=== PATIENT | male | born 1955 | race Caucasian/White ===

== ENCOUNTER → 2017-06-18 10:34 | Outpatient (CLI) | payer OTHER, SELFPAY ==
[2017-06-18 12:28] LABS: Cholesterol 217 mg/dL (200); High Density Lipoprotein 66 mg/dL; PSA,Total - Annual Screen 0.94 ng/mL (0.00-4.00); Triglycerides 131 mg/dL; Very Low Density Lipoprotein 26 mg/dL (5-40)
== END ==
PROVIDERS: Family Provider Family Medicine; PCP Family Medicine; Visit Provider Family Medicine
DX: Z00.00 Encounter for general adult medical examination without abnormal findings (principal)
CPT/HCPCS: 36415; 80061; 84153; G0103

== ENCOUNTER 2017-07-09 06:34 | Day surgery (SDC) | payer OTHER, SELFPAY ==
[2017-07-09] VITALS (7 sets, daily range): BP systolic 119–126; BP diastolic 78–88; PULSE 67–80; RESP 14–16; TEMP 36.2–36.9; O2SAT 92–99; BMI 31.6
--- NOTE | 2017-07-09 07:25 | PCM.HP.STD ---
Problem List (1) Family history of colon cancer Status: Acute History of Present Illness Date of Admission: 07/09/17 The patient is a 61 year old M who has recently had successful laparoscopic inguinal herniorrhaphy. He has a family history of colon cancer. Fortunately he denies any bright red blood per rectum or melena. No abdominal pain. He presents for high-risk screening colonoscopy. Past Medical History Allergies No Known Allergies Allergy (Verified 07/06/17 08:59) Home Medications: Ambulatory Orders Medication Instructions Recorded Aspirin E.C. [Ecotrin] 81 mg PO DAILY@0800 03/18/17 Multivitamin [Daily Multiple 1 ea PO DAILY 03/18/17 Vitamin] [place]-3 Fatty Acids/Fish Oil [Fish 1 each PO DAILY 07/06/17 Oil 1,000 mg Capsule] Smoking Status: Never smoker Review of Systems Constitutional: Denies: Weight Change Eyes: Denies: Blurred vision, Vision Change HEENT: Denies: Ear Pain, Eye Pain Cardiovascular: Denies: Chest Pain, Claudication Respiratory: Denies: Cough, Shortness of Breath Gastrointestinal: Denies: Hematemesis, Hematochezia Genitourinary: Denies: Dysuria, Hematuria Musculoskeletal: Denies: Leg Pain Skin: Denies: Jaundice Neurological: Denies: Confusion Psychiatric: Denies: Depression Endocrine: Denies: Change in Body Habitus Hematologic/ Lymphatic: Denies: Easy Bleeding VTE Information - Inpt Only VTE Present on Admission: No Patient Problems: Active and Suspected Problems (Last Reviewed 04/01/17 @ 13:34 by Leandra Duarte) Family history of colon cancer (Acute) - Physical Exam General: Alert, Oriented x3, Cooperative HEENT: Atraumatic Oral: Moist Mucosa Neck: Supple Lungs: Clear to auscultation Cardiovascular: Regular rate Abdomen: Bowel Sounds Present, Soft, Non Tender Extremities: No clubbing Skin: No rashes Musculoskeletal: No Tenderness to Palpation of Joints or Extremities Lymphatic: No Cervical, Supraclavicular, or Inguinal Adenopathy Neurological: Cranial nerves II-XII grossly intact Psych/Mental Status: Normal Affect Vital Signs Temp Pulse Resp BP Pulse Ox 97.1 F L 80 16 125/83 H 99 07/09/17 06:50 07/09/17 06:50 07/09/17 06:50 07/09/17 06:50 07/09/17 06:50 Oxygen Delivery Method Room Air Weight: 220 lb 10.923 oz Body Mass Index (BMI) 31.6 Assessment/Plan Active and Suspected Problems (Last Reviewed 04/01/17 @ 13:34 by Leandra Duarte) Family history of colon cancer (Acute) Colonoscopy with possible biopsy or polypectomy is indicated is recommended. He has had an opportunity to ask and have questions answered. We will proceed at his discretion. Mario Otto M.D., F.A.C.S.
--- NOTE | 2017-07-09 07:50 | COLBX_PTH ---
PATIENT: CARLY JAY LOC: EN U#:[id number] AGE/SX: 61/M ROOM: RE07/09/[address]: Dr. Mario Otto MD : 1955 BED: DIS: 07/09/2017 SPEC #: [id number] RECD: 07/09/17 13:16 STATUS: MILVIA ELAINEAntonio #: [id number] MARSHALL: 07/09/17 07:[address]: Mario Otto DEPT: SURGICAL PATHOLOGY RECD BY: Steven Watts ENTERED: 07/09/17 14:10 SP TYPE: COLON BX OTHR DR: Dr. Jewels Hernandez MD Tissues: Sigmoid colon biopsy Procedures: Surgery Specimen Level IV HEADER OPERATION: Colonoscopy PRE-OP DIAGNOSIS: Family history of colon cancer TISSUE SUBMITTED: Proximal sigmoid polyp MICROSCOPIC DIAGNOSIS Proximal sigmoid polyp, biopsy: Tubular adenoma. SJ:khoi 07/12/17 MICROSCOPIC DESCRIPTION Slides are reviewed. GROSS DESCRIPTION Received in fixative is one container labeled with the patient's name and designated proximal sigmoid polyp. The specimen consists of one irregular fragment of light carmen soft tissue that measures 0.3 x 0.3 x 0.1 cm. The specimen is totally submitted in one cassette. / RANI:khoi 07/09/17 TC:1 CPT: 74512
--- NOTE | 2017-07-09 07:55 | PCM.OPRPT ---
Problem List (1) Family history of colon cancer Status: Acute Report of Operation Date of Procedure: 07/09/17 Pre-Operative Diagnosis: Family history of colon cancer in his father Post-Operative Diagnosis: Sessile polyp of the proximal sigmoid colon. Sigmoid diverticulosis Surgery/Procedure Performed:: Colonoscopy with hot snare polypectomy Description of Surgical Findings:: Timeout and informed consent was obtained. 61-year-old gentleman was taken to the endoscopy suite. He was placed in a left lateral decubitus position. Throughout the procedure in aliquots he received total 150 mg Demerol and 5 mg of Versed is intravenous sedation. Digital rectal exam performed. Normal anal tone. 2+ smooth prostate. Flexible colonoscope inserted the rectum advanced to a slightly tortuous sigmoid colon extensively involved with diverticulosis the scope was then readily advanced through the transverse colon and the cecum ileocecal valve area was nicely achieved. Bowel prep was good there was still liquid stool throughout the colon but I could aspirate that free. The cecum ileocecal valve was nicely inspected the scope was carefully withdrawn through the ascending transverse and descending colon. The descending sigmoid colon had diverticulosis but no evidence of acute inflammation. In the proximal sigmoid colon there was a 7 mm diameter erythematous sessile polyp. Photograph was obtained. Snare cautery blend setting of 24 was used to resect and retrieved. The base was then gently treated with some additional cautery. Hemostasis was nicely intact. The scope was further withdrawn with diverticulosis noted but no additional abnormality. The scope was retroflexed within the rectum anorectal verge inspected hemorrhoidal changes noted. No active bleeding. Excess fluid and air was aspirated free the procedure was completed with patient tolerating it well. Impression Sessile polyp of the proximal sigmoid colon. Family history of colon cancer in his father. We will likely consider follow-up colonoscopy in 3 years. Previous colonoscopy was 5 years ago. The patient will be notified of pathology results as they become available. Sigmoid and descending colon diverticulosis Cc: Dr Jewels Hernandez Medications were given at 0733. Scope was inserted 0736. Cecum was reached at 0742. The procedure was completed at 0753 Mario Otto M.D., F.A.C.S. Type of Anesthesia:: IV Sedation
== END 2017-07-09 09:24 | disposition home or self-care (01) ==
LOC: EN 06:36 → AC 06:37
PROVIDERS: Family Provider Family Medicine; PCP Family Medicine; Visit Provider Surgery
PROC: 0DJD8ZZ Inspection of Lower Intestinal Tract, Via Natural or Artificial Opening Endoscopic (ICD-10-PCS; CPT 45378; principal; 2017-07-09 07:25)
DX: Z12.11 Encounter for screening for malignant neoplasm of colon (principal); D12.5 Benign neoplasm of sigmoid colon; K57.30 Diverticulosis of large intestine without perforation or abscess without bleeding; K64.9 Unspecified hemorrhoids; Z80.0 Family history of malignant neoplasm of digestive organs; Z79.82 Long term (current) use of aspirin
CPT/HCPCS: 45385; 88305; J7120

== ENCOUNTER → 2018-03-25 14:10 | Outpatient (CLI) | payer OTHER, SELFPAY ==
--- NOTE | 2018-03-25 14:13 | RAD_ITS ---
STUDY: X-RAY - UNILATERAL RIBS ( LEFT ) WITH CHEST REASON FOR EXAM: Male, 62 years old. Left rib injury. Left posterior and anterior pain for 5 days. TECHNIQUE - RIBS: 4 view(s) of the ribs. TECHNIQUE - CHEST: Single frontal view of the chest. COMPARISON: None. FINDINGS - RIBS: There is no demonstrated acute rib fracture. FINDINGS - CHEST: There are atelectatic changes in the left lung base. There is mild elevation of the right hemidiaphragm. There is no demonstrated pleural abnormality. Normal size heart. Normal mediastinum and jose. Normal visualized pulmonary arteries. There is atherosclerotic calcification of the aortic arch with tortuosity. Normal visualized thoracic spine. Normal visualized ribs, clavicles, and shoulders. There is no demonstrated abnormality of the visualized soft tissue structures of the upper abdomen. RAD/Ribs Uni Min 3V w/PA Chest IMPRESSION: RIBS: No demonstrated acute rib fracture. CHEST: Atelectatic changes in the left lung base. Electronically Signed: Frankie Weinstein MD at 14:18 EST Tel , Service support ,
== END ==
PROVIDERS: Family Provider Family Medicine; PCP Family Medicine; Referring Provider Family Medicine; Visit Provider Family Medicine
DX: S20.219A Contusion of unspecified front wall of thorax, initial encounter (principal)
CPT/HCPCS: 71101

== ENCOUNTER → 2018-06-07 07:06 | Outpatient (CLI) | payer OTHER, SELFPAY ==
--- NOTE | 2018-06-07 11:01 | NEURO ---
NCS and/or EMG Patient Report Ordering Doctor: eJwels Hernandez DATE OF SERVICE: 06/07/18 This is a left upper extremity EMG and nerve conduction study performed on this 70-year-old male with a 3-4-month history of paresthesias in the first 3 digits of his left hand. Wrist splints have been of no benefit. He is healthy otherwise without a history of diabetes or significant alcohol intake. Left upper extremity sensory and motor nerve conduction studies performed demonstrating mild prolongation of the median motor and sensory distal latencies with preservation of amplitude and conduction velocities. The ulnar motor and sensory and radial sensory responses are normal in the median ulnar f wave latencies are preserved. Left upper extremity needle electromyography is performed. Muscles evaluated included the first dorsal interosseous, abductor pollicis brevis, brachioradialis, biceps, triceps and deltoid muscles. All muscles demonstrated normal insertional activity with absence of pathologic spontaneous activity. Motor unit potential recruitment pattern and amplitude was normal in all muscles tested. 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
--- NOTE | 2018-06-07 11:09 | NEURO_ITS ---
NCS and/or EMG Patient Report Ordering Doctor: Jewels Hernandez DATE OF SERVICE: 06/07/18 This is a left upper extremity EMG and nerve conduction study performed on this 70-year-old male with a 3-4-month history of paresthesias in the first 3 digits of his left hand. Wrist splints have been of no benefit. He is healthy ot herwise without a history of diabetes or significant alcohol intake. Left upper extremity sensory and motor nerve conduction studies performed demonstrating mild prolongation of the median motor and sensory distal latencies with preservation of amplitude and conduction velocities. The ulnar motor and sensory and radial sensory responses are normal in the median ulnar f wave latencies are preserved. Left upper extremity needle electromyography is performed. Muscles evaluated included the first dorsal interosseous, abductor pollicis brevis, brachioradialis, biceps, triceps and deltoid muscles. All muscles demonstrated normal insertional activity with absence of pathologic spontaneous activity. Motor unit potential recruitment pattern and amplitude was normal in all muscles tested. 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
== END ==
PROVIDERS: Family Provider Family Medicine; PCP Family Medicine; Referring Provider Family Medicine; Visit Provider Family Medicine
DX: G56.02 Carpal tunnel syndrome, left upper limb (principal)
CPT/HCPCS: 95886; 95910

== ENCOUNTER → 2018-07-12 10:38 | Outpatient (CLI) | payer OTHER, SELFPAY ==
[2017-07-09 06:50] VITALS: BMI 31.6
[2018-07-12 13:27] LABS: Anion Gap 8 (5-15); BUN 17 mg/dL (7-18); BUN/Creat Ratio 18.6 RATIO (10-20); Calcium,Total 8.5 mg/dL (8.5-10.1); Chloride 108 mmol/L (98-107); Cholesterol 230 mg/dL (200); Creatinine, Serum 0.91 mg/dL (0.70-1.30); EST Glomerular Filtration Rate 90 mL/min (>60); Est Glom Filt Rate - Afr Amer 108 mL/min (>60); Glucose 98 mg/dL (74-106); High Density Lipoprotein 68 mg/dL; PSA,Total - Annual Screen 0.65 ng/mL (0.00-4.00); Potassium 4.2 mmol/L (3.5-5.1); Sodium Level 143 mmol/L (136-145); Thyroid Stim Hormone (TSH) 1.47 uIU/mL (0.358-3.74); Triglycerides 59 mg/dL; Very Low Density Lipoprotein 12 mg/dL (5-40)
== END ==
PROVIDERS: Family Provider Family Medicine; PCP Family Medicine; Referring Provider Family Medicine; Visit Provider Nurse Practitioner Adult Health
DX: Z13.220 Encounter for screening for lipoid disorders (principal); Z13.1 Encounter for screening for diabetes mellitus; L65.9 Nonscarring hair loss, unspecified; Z12.5 Encounter for screening for malignant neoplasm of prostate
CPT/HCPCS: 36415; 80048; 80061; 84153; 84443; G0103

== ENCOUNTER 2019-07-17 16:44 | Emergency (ER) | payer OTHER, SELFPAY ==
[2019-07-17 16:45] VITALS: BP 159/91; PULSE 91; RESP 17; RESP 20; TEMP 35.9; O2SAT 92; O2SAT 94; BMI 32.1
[2019-07-17 16:57] VITALS: O2SAT 96
[2019-07-17 17:01] VITALS: PULSE 85; RESP 18; O2SAT 96
--- NOTE | 2019-07-17 17:24 | ED.DCSUM_ITS ---
History of Present Illness Chief Complaint: Shortness of Breath Onset: Today Narrative: Patient states on Wednesday he began to experience fever as well as headache. By Wednesday he developed a cough though nonproductive. He states that he feels somewhat short of breath but he alters the way he is breathing and he seems to do okay. He denies any known lung diagnoses. He takes meloxicam for carpal tunnel issues in the left hand. He has been eating and drinking okay. Past Medical History - Allergies and Home Meds Allergies/Adverse Reactions: Allergies No Known Allergies Allergy (Verified 07/17/19 16:44) Primary Care Physician: Jewels Hernandez MD [Primary Care Provider] - Smoking Status: Never smoker Review of Systems General: Reports: Chills, Fever, Malaise. Denies: Sweats Eyes: Denies: Visual changes - bilaterally, Diplopia ENT: Reports: Rhinorrhea. Denies: Sore throat Cardiovascular: Denies: Chest pain, Palpitations Respiratory: Reports: Dyspnea, Cough. Denies: Dyspnea on exertion Gastrointestinal: Denies: Abdominal pain, Nausea, Vomiting, Diarrhea, Melena, Hematochezia Genitourinary: Denies: Dysuria, Hematuria, Frequency Musculoskeletal: Reports: Myalgias. Denies: Back pain, Extremity Pain Skin: Denies: Rash, Wounds Neurological: Denies: Headache, Weakness, Numbness Physical Exam Vital Signs/Narrative: Vital Signs Temp Pulse Resp BP Pulse Ox 07/17/19 17:01 85 18 96 07/17/19 16:45 96.7 F L 91 20 H 159/91 H 92 Inital Vital Signs reviewed: Yes General: Well nourished, Well developed, No Acute Distress Head: Normocephalic, Atraumatic Eyes: Perrl, EOMI ENT: Moist mucous membranes, No rhinorrhea Neck: Supple, Nontender Cardiovascular: Regular rate, Regular rhythm, No murmurs Respiratory: No distress, CTA bilaterally, Chest nontender Abdomen: Soft, Nontender, Nondistended, Normal bowel sounds Back: Nontender, Normal Inspection Extremities: Nontender, No edema Skin: Normal color, No rash Neurological: Alert, Oriented x3, Cranial nerves II-XII grossly intact, Normal Strength, Normal Sensation Psychological: Normal affect, Normal Mood Diagnostic/Tx/Re-eval - Medical Decision Making Influenza and RSV are negative. Chest x-ray shows bilateral infiltrates. Patient clinically appears well with a normal oxygen saturation and is not dyspneic. He is able to reduce his fever. I discussed the case with our infectious disease physician. Patient be discharged home with azithromycin and also write him an albuterol MDI. I did tell him that in this pandemic of coronavirus he needs to be extra cautious about monitoring his symptoms and if he is worsening to please return to the emergency department return if worsening or concerns. ED Disposition - Plan for ED Patient: Disposition: Home or Assisted Living Diagnosis: Pneumonia Instructions: Treating Pneumonia Prescriptions: Albuterol Inhaler [Ventolin Hfa] 2 puff INHALATION Q4H PRN PRN #1 inhaler PRN Reason: Wheezing Transmission Status: Pending to [facility] Azithromycin [Zithromax Z-Scottie] 250 mg PO UD #1 box Transmission Status: Pending to [facility] Referrals: Jewels Hernandez MD [Primary Care Provider] - As Needed
--- NOTE | 2019-07-17 17:35 | RAD_ITS ---
STUDY: X-RAY CHEST REASON FOR EXAM: Male, 63 years old. Cough. Shortness of breath. Fever. TECHNIQUE: Single AP portable view of the chest. COMPARISON: Chest and left RIBS, March 25, 2018. FINDINGS: There is minimal elevation right hemidiaphragm. There is patchy infiltrates in the bilateral hilar regions most marked on the left. There is no demonstrated pleural abnormality. Normal size heart. Normal mediastinum and jose. Normal visualized pulmonary arteries. Normal visualized aortic arch and descending thoracic aorta. There are diffuse degenerative changes of the visualized thoracic spine. Normal visualized ribs, clavicles, and shoulders. There is no demonstrated abnormality of the visualized soft tissue structures of the upper abdomen. RAD/Chest 1 View (Portable) IMPRESSION: Bilateral perihilar infiltrates. Electronically Signed: Darin Riley DO at 18:00 EDT Tel [phone], Service support ,
[2019-07-17 19:23] VITALS: BP 150/87; PULSE 64; RESP 18; O2SAT 97
== END 2019-07-17 19:49 | disposition home or self-care (01) ==
PROVIDERS: Emergency Provider Emergency Medicine; PCP Family Medicine
DX: J18.9 Pneumonia, unspecified organism (principal); G56.02 Carpal tunnel syndrome, left upper limb; Z79.899 Other long term (current) drug therapy
CPT/HCPCS: 71045; 87804; 87807; 99282

== ENCOUNTER 2019-07-19 15:55 | Inpatient (IN) | payer OTHER, SELFPAY ==
[2019-07-19] VITALS (20 sets, daily range): BP systolic 97–189; BP diastolic 68–97; PULSE 32–106; RESP 16–57; TEMP 37.2–38.8; O2SAT 71–100; BMI 31.7; BMI 31.1; BMI 31.8
--- NOTE | 2019-07-19 16:15 | EKG12_ITS ---
Test Reason : SOB Blood Pressure : / mmHG Vent. Rate : 106 BPM Atrial Rate : 106 BPM P-R Int : 154 ms QRS Dur : 104 ms QT Int : 386 ms P-R-T Axes : 048 013 037 degrees QTc Int : 512 ms Sinus tachycardia Possible Left atrial enlargement Borderline ECG Confirmed by ANTONELLA KOROMA, SHERRIE ([id number]), greeting card editor EDMAR JAY ([id number]) on 07/26/2019 8:50:20 AM Referred By: SVEN/TRE Confirmed By:SHERRIE BERMAN MD
--- NOTE | 2019-07-19 16:17 | ED.VIS.DYS ---
History of Present Illness Chief Complaint: Shortness of Breath Informant: Patient, EMS Onset: Days Timing: Continuous Narrative: Patient is a 63-year-old male presenting with significantly worsening shortness of breath. He states he is had symptoms for 5 days including shortness of breath and cough. He is also had fever. Patient was seen in the ED 2 days ago diagnosed with pneumonia. He started on oral antibiotics and discharged home. Today patient symptoms significantly worsened. Son who lives in [place] felt that patient was confused and called EMS. Patient was hypoxic for EMS. He was placed on a nonrebreather and was still 82% on 15 L nonrebreather. Patient is on any medications today. Patient denies any other complaints at this time. He does not have any known sick contacts. He denies any chest pain, nausea, vomiting or diarrhea. Past Medical History - Allergies and Home Meds Allergies/Adverse Reactions: Allergies No Known Allergies Allergy (Verified 07/19/19 16:00) Past Medical History: None Surgical History: noncontributory Lives: Alone Smoking Status: Never smoker Review of Systems General: Reports: Chills, Fever, Malaise. Denies: Sweats Eyes: Denies: Visual changes - bilaterally, Diplopia ENT: Denies: Rhinorrhea, Sore throat Cardiovascular: Denies: Chest pain, Palpitations Respiratory: Reports: Dyspnea, Cough, Dyspnea on exertion Gastrointestinal: Denies: Abdominal pain, Nausea, Vomiting, Diarrhea, Melena, Hematochezia Genitourinary: Denies: Dysuria, Hematuria, Frequency Musculoskeletal: Denies: Back pain, Extremity Pain Skin: Denies: Rash, Wounds Neurological: Denies: Headache, Weakness, Numbness Physical Exam Vital Signs/Narrative: Vital Signs Temp Pulse Resp BP Pulse Ox 07/19/19 16:07 46 H 86 07/19/19 15:56 101.9 F H 106 H 51 H 168/89 H 81 Inital Vital Signs reviewed: Yes General: Well nourished, Well developed, Acute Distress Head: Normocephalic, Atraumatic Eyes: Perrl, EOMI ENT: No rhinorrhea, TM's clear, Dry mucous membranes Neck: Supple, Nontender Cardiovascular: Regular rhythm, No murmurs, Tachycardia Respiratory: Chest nontender, Decreased Air Movement, - - Bilateral crackles, tachypnea Abdomen: Soft, Nontender, Nondistended, Normal bowel sounds Back: Nontender, Normal Inspection Extremities: Nontender, No edema Skin: Normal color, No rash Neurological: Alert, Oriented x3, Cranial nerves II-XII grossly intact, Normal Strength, Normal Sensation Psychological: Normal affect, Normal Mood Diagnostic/Tx/Re-eval Chest X-Ray - ED: 1 View, Read by ED Physician, Read by Radiologist, - - Bilateral infiltrate Clinical Impression(s) from Imaging Studies Chest X-Ray 07/19/19 16:23 IMPRESSION: Thickening multifocal bilateral pulmonary opacities most consistent with acute infection. Electronically Signed: Damaso Laryangela, at 17:44 EDT Tel , Service support , Laboratory Data 07/19/19 07/19/19 07/19/19 16:15 16:15 16:15 WBC 15.5 H RBC 5.24 Hgb 15.6 Hct 43.1 MCV 82.3 MCH 29.8 MCHC 36.2 H RDW Std Deviation 37.1 RDW Coeff of David 12.3 Plt Count 203 MPV 12.4 H Immature Gran % (Auto) 0.600 Neut % (Auto) 87.5 H Lymph % (Auto) 7.4 L Jasper % (Auto) 4.4 Eos % (Auto) 0.0 Baso % (Auto) 0.1 Absolute Neuts (auto) 13.6 H Absolute Lymphs (auto) 1.15 Nucleated RBC % 0 PT Cancelled INR Cancelled APTT Cancelled Specimen Type Sample Site pH Bicarbonate Actual POC Total CO2 Base Excess O2 Saturation ABG pCO2 ABG pO2 Test O2 Delivery Device Liter Flow Blood Gas Notified Whom Blood Gas Notified Time Sodium Cancelled Potassium Cancelled Chloride Cancelled Carbon Dioxide Cancelled Anion Gap Cancelled BUN Cancelled Creatinine Cancelled Estim Creat Clear Calc Cancelled Est GFR (MDRD) Af Amer Cancelled Est GFR (MDRD) Non-Af Cancelled BUN/Creatinine Ratio Cancelled Glucose Cancelled Lactic Acid Calcium Cancelled Total Bilirubin Cancelled AST Cancelled ALT Cancelled Alkaline Phosphatase Cancelled Total Creatine Kinase B-Natriuretic Peptide Total Protein Cancelled Albumin Cancelled Globulin Cancelled Albumin/Globulin Ratio Cancelled Triglycerides 07/19/19 07/19/19 07/19/19 16:15 16:20 17:10 WBC RBC Hgb Hct MCV MCH MCHC RDW Std Deviation RDW Coeff of David Plt Count MPV Immature Gran % (Auto) Neut % (Auto) Lymph % (Auto) Jasper % (Auto) Eos % (Auto) Baso % (Auto) Absolute Neuts (auto) Absolute Lymphs (auto) Nucleated RBC % PT INR APTT Specimen Type ART Sample Site R Radial pH 7.52 H Bicarbonate Actual 19.3 L POC Total CO2 20 Base Excess -4 L O2 Saturation 92 L ABG pCO2 23.7 L ABG pO2 54 L Test POS O2 Delivery Device NRB Mask Liter Flow 15.0 Blood Gas Notified Whom ED MD Blood Gas Notified Time 1608 Sodium Potassium Chloride Carbon Dioxide Anion Gap BUN Creatinine Estim Creat Clear Calc Est GFR (MDRD) Af Amer Est GFR (MDRD) Non-Af BUN/Creatinine Ratio Glucose Lactic Acid Cancelled 1.8 Calcium Total Bilirubin AST ALT Alkaline Phosphatase Total Creatine Kinase B-Natriuretic Peptide Total Protein Albumin Globulin Albumin/Globulin Ratio Triglycerides 07/19/19 07/19/19 07/19/19 17:10 17:10 17:10 WBC RBC Hgb Hct MCV MCH MCHC RDW Std Deviation RDW Coeff of David Plt Count MPV Immature Gran % (Auto) Neut % (Auto) Lymph % (Auto) Jasper % (Auto) Eos % (Auto) Baso % (Auto) Absolute Neuts (auto) Absolute Lymphs (auto) Nucleated RBC % PT 14.8 INR 1.2 APTT 27.0 Specimen Type Sample Site pH Bicarbonate Actual POC Total CO2 Base Excess O2 Saturation ABG pCO2 ABG pO2 Test O2 Delivery Device Liter Flow Blood Gas Notified Whom Blood Gas Notified Time Sodium 133 L Potassium 3.9 Chloride 102 Carbon Dioxide 23.0 Anion Gap 8 BUN 26 H Creatinine 1.22 Estim Creat Clear Calc 65.65 Est GFR (MDRD) Af Amer 77 Est GFR (MDRD) Non-Af 64 BUN/Creatinine Ratio 21.3 H Glucose 178 H Lactic Acid Calcium 8.1 L Total Bilirubin 1.10 H AST 39 H ALT 32 Alkaline Phosphatase 78 Total Creatine Kinase B-Natriuretic Peptide 68.0 Total Protein 6.4 Albumin 2.7 L Globulin 3.7 Albumin/Globulin Ratio 0.7 L Triglycerides 07/19/19 17:10 WBC RBC Hgb Hct MCV MCH MCHC RDW Std Deviation RDW Coeff of David Plt Count MPV Immature Gran % (Auto) Neut % (Auto) Lymph % (Auto) Jasper % (Auto) Eos % (Auto) Baso % (Auto) Absolute Neuts (auto) Absolute Lymphs (auto) Nucleated RBC % PT INR APTT Specimen Type Sample Site pH Bicarbonate Actual POC Total CO2 Base Excess O2 Saturation ABG pCO2 ABG pO2 Test O2 Delivery Device Liter Flow Blood Gas Notified Whom Blood Gas Notified Time Sodium Potassium Chloride Carbon Dioxide Anion Gap BUN Creatinine Estim Creat Clear Calc Est GFR (MDRD) Af Amer Est GFR (MDRD) Non-Af BUN/Creatinine Ratio Glucose Lactic Acid Calcium Total Bilirubin AST ALT Alkaline Phosphatase Total Creatine Kinase 140 B-Natriuretic Peptide Total Protein Albumin Globulin Albumin/Globulin Ratio Triglycerides 120 - Rhythm Strip Rhythm Strip: Sinus Tach Rate: 107 Ectopy: None - EKG Initial EKG Interpretation: Sinus Tachycardia, - - Tachycardia at a rate of 107Normal intervalsNormal axisT wave inversion in lead IIICompared to prior EKG patient is now tachycardic but has no ST segment changes Treatment - Dyspnea: Oxygen - Medical Decision Making Patient is evaluated for significant respiratory distress. He has had respiratory symptoms have been worsening over the past 5 days. Patient was diagnosed with pneumonia yesterday. Clinically have a very high suspicion for Covid 19. Patient is significantly hypoxic and on a nonrebreather is only saturating 82%. He does slowly improve to up to 88%. ABG shows a P O2 of 54. Chest x-ray appears worsened. Decision is made to intubate the patient. See procedure note. Patient will be admitted to the ICU. Discussed with admitting physician as well as Dr. Carroll. Patient is started on Zosyn IV. He is given 1 L fluid in the emergency room's. His lactate is normal however because he is in acute respiratory failure he does meet criteria for severe sepsis. Patient is not given a full 30 cc/kg fluid bolus because I suspect his source is Covid 19 and current literature supports negative fluid balance for better outcomes as they are at such a high risk of ARDS Procedures Procedure(s): Intubation. Patient on continuous telemetry and oximetry monitoring. He is preoxygenated up to 92% on a nonrebreather. He is given 300 mg of IV ketamine. Once adequate sedation is achieved glide scope was used with a 4 MAC blade to visualize the larynx. An 8-0 tube is passed with video visualization. Patient did sustain a minor lip laceration during the procedure but otherwise tolerated it well. He desaturated down to 76% however came up to 88%. Patient was not given any rocuronium as it was not required for intubation. Patient bilateral breath sounds and condensation in ET tube. X-ray confirmed placement. Critical care time (excluding procedures): Discussing w/Consultants - 32 minutes of critical care time. Patient requires frequent evaluations for his acute hypoxic respiratory failure. Discussed the case with admitting physician as well as ICU physician. ED Disposition - Plan for ED Patient: Disposition: Acute Care Hospital [facility] Diagnosis: Acute respiratory failure with hypoxia, Bilateral pneumonia, Severe sepsis
--- NOTE | 2019-07-19 16:23 | RAD_ITS ---
STUDY: X-RAY CHEST REASON FOR EXAM: Male, 63 years old. Shortness of breath TECHNIQUE: Single frontal view of the chest. COMPARISON: 07/17/2019. FINDINGS: Cardiac silhouette unremarkable. Pulmonary vascularity unremarkable. Aorta unremarkable. Interval worsening of diffuse patchy multifocal pulmonary opacities. Upper abdomen unremarkable. Osseous structures intact. No pneumothorax. RAD/Chest 1 View (Portable) IMPRESSION: Thickening multifocal bilateral pulmonary opacities most consistent with acute infection. Electronically Signed: Damaso Parra, at 17:44 EDT Tel , Service support ,
[2019-07-19 16:26] LABS: Allen Test POS; Base Excess -4 mmol/L (-2 to +2); Bicarbonate 19.3 mmol/L (22-26); Blood Gas Specimen Type ART; O2 Delivery Device NRB Mask; PO2 54 mmHG (75-100); SITE R Radial; SO2 92 % (95-99); Time Given 1608; Total Carbon Dioxide 20 mmol/L; pCO2 23.7 mmHg (35-45); pH 7.52 (7.35-7.45)
[2019-07-19 16:30] LABS: Absolute Lymphocyte Count 1.15 X10^3/uL (0.83-4.51); Absolute Neutrophil Count 13.6 X10^3/uL (2.0-7.7); Basophil# 0.02 X10^3/uL; Basophil% 0.1 % (0-1); Hematocrit 43.1 % (40-54); Hemoglobin 15.6 g/dL (13.0-16.5); Lymphocyte # 1.15 X10^3/ul (4.0); Lymphocyte % 7.4 % (19-41); Mean Corp Hgb Conc 36.2 g/dL (32-36); Mean Corpuscular Hgb 29.8 pg (27.0-32.0); Mean Corpuscular Volume 82.3 fL (80-94); Mean Platelet Vol. 12.4 fl (6.2-12.0); Monocyte# 0.69 X10^3/uL; Monocyte% 4.4 % (0-10); NRBC Flagged by Analyzer 0 % (0-5); Neutrophil # 13.57 X10^3/uL (2.7-7.7); Neutrophil % 87.5 % (47-70); Platelet Count 203 K/mm3 (150-450); RBC Distribution Width CV 12.3 % (11.6-14.6); RBC Distribution Width SD 37.1 fl (35.1-43.9); Red Blood Count 5.24 M/mm3 (4.6-6.2); White Blood Count 15.5 K/mm3 (4.4-11.0)
[2019-07-19] MEDS: Acetaminophen 325 MG Tablet 650 MG PO (16:35)
[2019-07-19] MEDS: 0.9% Normal Saline 1,000 ML 999 ML IV (16:35)
[2019-07-19] MEDS: fentaNYL 100 MCG/2 ML Ampul IV (17:15)
--- NOTE | 2019-07-19 17:20 | RAD_ITS ---
STUDY: X-RAY CHEST REASON FOR EXAM: Male, 63 years old. ETT PLACEMENT, OG/NG PLACEMENT TECHNIQUE: Single frontal view of the chest. COMPARISON: Earlier same day. FINDINGS: Endotracheal tube tip is in the midthoracic trachea. Enteric tube tip is in the stomach. Cardiac silhouette unremarkable. Pulmonary vascularity unremarkable. Aorta unremarkable. Similar-appearing diffuse pulmonary opacities. Upper abdomen unremarkable. Osseous structures intact. No pneumothorax. RAD/Chest 1 View (Portable) IMPRESSION: Endotracheal tube tip is in the midthoracic trachea. Enteric tube tip is in the stomach. Similar-appearing multifocal pulmonary opacities bilaterally. Electronically Signed: Damaso Parra, at 17:49 EDT Tel , Service support ,
[2019-07-19 17:26] LABS: International Normalized Ratio 1.2; Prothrombin Time (Protime)PT. 14.8 SECONDS (11.7-14.9)
[2019-07-19 17:33] LABS: ALB/GLOB Ratio 0.7 RATIO (0.9-2.4); AST(SGOT) 39 U/L (15-37); Alanine Aminotransfer ALT/SGPT 32 U/L (16-61); Albumin, Serum 2.7 g/dL (3.2-5.0); Alkaline Phosphatase 78 U/L (45-117); Anion Gap 8 (5-15); BUN 26 mg/dL (7-18); BUN/Creat Ratio 21.3 RATIO (10-20); Calcium,Total 8.1 mg/dL (8.5-10.1); Chloride 102 mmol/L (98-107); Creatinine, Serum 1.22 mg/dL (0.70-1.30); EST Glomerular Filtration Rate 64 mL/min (>60); Est Glom Filt Rate - Afr Amer 77 mL/min (>60); Estimated Creatinine Clearance 65.65 ml/min; Globulin 3.7 g/dL (2.2-4.2); Glucose 178 mg/dL (74-106); Potassium 3.9 mmol/L (3.5-5.1); Protein, Total 6.4 g/dL (6.4-8.2); Sodium Level 133 mmol/L (136-145)
[2019-07-19] MEDS: fentaNYL drip 100 ML 2.5 MCG IV (17:34)
[2019-07-19 17:38] LABS: Lactic Acid 1.8 mmol/L (0.4-1.9)
[2019-07-19] MEDS: Propofol 10MG/Ml 1,000 MG/100 ML Bottle 6 MG CONT INF (18:10)
[2019-07-19 18:15] LABS: Squamous Epithelial Cells - UA 0 SEEN /hpf (0-5)
[2019-07-19 18:19] LABS: Color, Urine Yellow (Yellow); Glucose, Dipstick Normal (Normal); Ketone-Dipstick 5 mg/dl (Negative); Leukocyte Esterase-Dipstick 25 /ul (Negative); Nitrite-Dipstick Negative (Negative); Occult Blood-Urine 150 /ul (Negative); Protein-Dipstick 100 mg/dl (Negative); Urine Bilirubin Dipstick Negative (Negative); Urine Clarity Clear (Clear); Urine Urobilinogen 1 mg/dl (Normal)
[2019-07-19 18:38] LABS: Bacteria RARE /hpf (None Seen); Fine Granular Cast- Urine 0-5 SEEN /lpf (0-5); White Blood Cells 0-5 SEEN /hpf (0-5)
[2019-07-19 18:39] LABS: Mucous, Urine RARE /hpf (<or=2+); Red Blood Cells-Urine 0-5 SEEN /hpf (0-5)
[2019-07-19 18:42] LABS: CPK Total, Creatine Kinase 140 U/L (39-308); Triglycerides 120 mg/dL
--- NOTE | 2019-07-19 18:45 | HP.PCM_ITS ---
History of Present Illness Date of Admission: 07/19/19 Chief Complaint: Shortness of breath - 1 day History was taken from review of chart, as patient was already intubated at the time of this note. 63-year-old male with no significant past medical history who presented with fever cough and shortness of breath ongoing for 5 days. He was seen here on 07/17/19 and testing for influenza and RSV were negative. Patient at a time was saturating well and he was recommended to be discharged with azithromycin and an inhaler. He presented back with progressive shortness of breath was found to be hypoxic and saturating 82% on 15 L of oxygen via nonrebreather mask. Vitals in the ED showed temperature 101.9 F, heart rate 106, blood pressure 168/89, respiratory rate was 57 he was saturating 71% on room air, improved to 81% on 15L via nonrebreather mask. WBC 15.5, Hb 15.6, Plt 203, INR 1.2, pH 7.52, O2 92, PCo2 23.7. Na 133, K 3.9, Cl 102, HCO3 23, BUN 26, Cr 1.22, Lactic acid 1.8, Total Gee 1.1, AST 39, ALT 32, ALP 78, Albumin 2.7. UA is unremarkable. Chest X-ray showed thickening multifocal bilateral pulmonary opacities consistent with acute infection. Past Medical History Medical History: Medical History (Last Reviewed 04/01/17 @ 13:34 by Leandra Duarte) Inguinal hernia K40.90 Allergies No Known Allergies Allergy (Verified 07/19/19 16:00) Home Medications: Ambulatory Orders Medication Instructions Recorded Aspirin E.C. [Ecotrin] 81 mg PO DAILY@0800 03/18/17 Albuterol Inhaler [Ventolin Hfa] 2 puff INHALATION Q4H PRN PRN #1 07/17/19 inhaler Azithromycin [Zithromax Z-Scottie] 250 mg PO UD #1 box 07/17/19 Meloxicam 15 mg PO DAILY 07/17/19 Multivitamin [Multiple Vitamins] 1 tab PO DAILY 07/19/19 Tadalafil 10 mg PO DAILY PRN PRN 07/19/19 Surgical History: Surgical History (Last Updated 04/01/17 @ 13:34 by Leandra Duarte) S/P inguinal hernia repair Onset Date: ~03/25/17 Z98.890, Z87.19 Surgical History: noncontributory Lives: Alone Smoking Status: Never smoker - *Family History Maternal History Items: - - cannot obtain as pt is intubated Paternal History Items: - - cannot obtain as pt is intubated Review of Systems Unable to obtain accurate/complete ROS d/t: unable to obtain as patient is intubated VTE Information - Inpt Only VTE Present on Admission: No VTE Pharm Prophylaxis ordered?: Yes - Physical Exam Vitals/I&O's: Vital Signs Temp Pulse Resp BP Pulse Ox 99.7 F H 90 29 H 133/80 H 91 07/19/19 17:41 07/19/19 17:41 07/19/19 17:41 07/19/19 17:41 07/19/19 17:41 Oxygen Flow Rate (L/min) 15 Oxygen Delivery Method Mechanical Ventilator Weight: 100.4 kg Body Mass Index (BMI) 31.7 Intake and Output for Last 24 Hours 07/17/19 07/18/19 07/19/19 23:59 23:59 23:59 Intake Total 1000.46 / 1000.46 Balance 1000.46 / 1000.46 General: Alert, Cooperative, No apparent distress, - - intubated, on mechanical ventilator, PEEP 14 HEENT: Atraumatic, PERRLA, EOMI, Normocephalic Oral: Moist Mucosa Neck: Supple Lungs: Clear to auscultation, Normal air movement Cardiovascular: Regular rate, Regular Rhythm, Normal S1, Normal S2, No murmurs Abdomen: Bowel Sounds Present, Soft, Non Tender, Non-Distended, No Hepato- splenomegaly Extremities: No edema Skin: No rashes, No breakdown Musculoskeletal: No Tenderness to Palpation of Joints or Extremities Lymphatic: No Cervical, Supraclavicular, or Inguinal Adenopathy Neurological: Neuro grossly intact Laboratory Results 07/19/19 16:15: WBC 15.5 H, RBC 5.24, Hgb 15.6, Hct 43.1, MCV 82.3, MCH 29.8, MCHC 36.2 H, RDW Std Deviation 37.1, RDW Coeff of David 12.3, Plt Count 203, MPV 12.4 H, Immature Gran % (Auto) 0.600, Neut % (Auto) 87.5 H, Lymph % (Auto) 7.4 L , Hughes % (Auto) 4.4, Eos % (Auto) 0.0, Baso % (Auto) 0.1, Absolute Neuts (auto) 13.6 H, Absolute Lymphs (auto) 1.15, Nucleated RBC % 0 07/19/19 16:15: PT Cancelled, INR Cancelled, APTT Cancelled 07/19/19 16:15: Sodium Cancelled, Potassium Cancelled, Chloride Cancelled, Carbon Dioxide Cancelled, Anion Gap Cancelled, BUN Cancelled, Creatinine Cancelled, Estim Creat Clear Calc Cancelled, Est GFR (MDRD) Af Amer Cancelled, Est GFR (MDRD) Non-Af Cancelled, BUN/Creatinine Ratio Cancelled, Glucose Cancelled, Calcium Cancelled, Total Bilirubin Cancelled, AST Cancelled, ALT Cancelled, Alkaline Phosphatase Cancelled, Total Protein Cancelled, Albumin Cancelled, Globulin Cancelled, Albumin/Globulin Ratio Cancelled 07/19/19 16:15: Lactic Acid Cancelled 07/19/19 16:20: Specimen Type ART, Sample Site R Radial, pH 7.52 H, Bicarbonate Actual 19.3 L, POC Total CO2 20, Base Excess -4 L, O2 Saturation 92 L, ABG pCO2 23.7 L, ABG pO2 54 L, Test POS, O2 Delivery Device NRB Mask, Liter Flow 15.0, Blood Gas Notified Whom ED , Blood Gas Notified Time 1608 07/19/19 17:10: Lactic Acid 1.8 07/19/19 17:10: Sodium 133 L, Potassium 3.9, Chloride 102, Carbon Dioxide 23.0, Anion Gap 8, BUN 26 H, Creatinine 1.22, Estim Creat Clear Calc 65.65, Est GFR (MDRD) Af Amer 77, Est GFR (MDRD) Non-Af 64, BUN/Creatinine Ratio 21.3 H, Glucose 178 H, Calcium 8.1 L, Total Bilirubin 1.10 H, AST 39 H, ALT 32, Alkaline Phosphatase 78, Total Protein 6.4, Albumin 2.7 L, Globulin 3.7, Albumin/Globulin Ratio 0.7 L 07/19/19 17:10: PT 14.8, INR 1.2, APTT 27.0 07/19/19 17:10: B-Natriuretic Peptide 68.0 07/19/19 17:10: Total Creatine Kinase 140, Triglycerides 120 07/19/19 18:13: Urine Color Yellow, Urine Clarity Clear, Urine pH 6.0, Ur Specific [place] 1.020, Urine Protein 100 H, Urine Glucose (UA) Normal, Urine Ketones 5 H, Urine Occult Blood 150 H, Urine Nitrite Negative, Urine Bilirubin Negative, Urine Urobilinogen 1 H, Ur Leukocyte Esterase 25 H, Urine RBC 0-5 SEEN, Urine WBC 0-5 SEEN, Ur Squamous Epith Cells 0 SEEN, Urine Bacteria RARE, Fine Granular Casts 0-5 SEEN, Urine Mucus RARE Current Medications Acetaminophen (Tylenol) 650 mg PO Q6H PRN PRN PRN Reason: Pain Score 1-10/Temp > 100.7 F Heparin Sodium (Porcine) (Heparin Na) 5,000 unit SC Q8 [facility] Fentanyl () 100 mls @ 2.5 mls/hr IV UD [facility]; Protocol Last Titration: 07/19/19 17:45 Dose: 50 mcg/hr, 5 mls/hr Documented by: Propofol (Diprivan) 1,000 mg in 100 mls @ 6.024 mls/hr CONT INF .Q12H [facility]INO; Protocol Sodium Chloride () 1,000 mls @ 50 mls/hr IV .Q20H [facility] Stop: 07/20/19 14:11 Piperacillin Sod/Tazobactam (Sod 3.375 gm/ Sodium Chloride) 50 mls @ 12.5 mls/hr IV Q8 [facility] Ondansetron HCl (Zofran) 4 mg IV Q8H PRN PRN PRN Reason: NAUSEA/VOMITING Assessment/Plan All Active Problems (Last Reviewed 04/01/17 @ 13:34 by Leandra Duarte) Family history of colon cancer (Acute) 63-year-old male with no significant past medical history who presented with fever cough and shortness of breath ongoing for 5 days. 1. Acute hypoxic respiratory failure secondary to bilateral pneumonia/suspected COV ID?1 9 infection Recently seen in the ED; RSV and influenza negative Patient presented with respiratory distress and was requiring more than 15 L of oxygen; subsequently intubated Will continue management in ICU Would continue on restrictive IV fluids; 50mls/hr We will also continue on IV Zosyn as patient recently was on azithromycin Follow-up on blood cultures 2. DVT PPx- Heparin SC Inpatient E&M: 00242 Init Hosp L3
[2019-07-19] MEDS: Heparin Injection (Vial) 5,000 UNIT/ML VIAL 5000 UNIT SC (22:00)
[2019-07-19] MEDS: Propofol 10MG/Ml 1,000 MG/100 ML Bottle 12 MG CONT INF (22:58)
[2019-07-20] VITALS (27 sets, daily range): BP systolic 104–138; BP diastolic 65–85; PULSE 64–85; RESP 16–33; TEMP 37.7–39.5; O2SAT 93–100; BMI 31.1
[2019-07-20] MEDS: fentaNYL drip 100 ML 10 MCG IV ×2 (01:22→17:46)
[2019-07-20] MEDS: 0.9% Saline Lock 10 ML Syringe IV (05:10)
[2019-07-20] MEDS: Heparin Injection (Vial) 5,000 UNIT/ML VIAL 5000 UNIT SC ×3 (06:00→21:00)
[2019-07-20 09:03] LABS: ALB/GLOB Ratio 0.7 RATIO (0.9-2.4); AST(SGOT) 39 U/L (15-37); Alanine Aminotransfer ALT/SGPT 30 U/L (16-61); Albumin, Serum 2.8 g/dL (3.2-5.0); Alkaline Phosphatase 83 U/L (45-117); Anion Gap 8 (5-15); BUN 28 mg/dL (7-18); BUN/Creat Ratio 21.1 RATIO (10-20); Calcium,Total 8.6 mg/dL (8.5-10.1); Chloride 102 mmol/L (98-107); Creatinine, Serum 1.33 mg/dL (0.70-1.30); EST Glomerular Filtration Rate 58 mL/min (>60); Est Glom Filt Rate - Afr Amer 70 mL/min (>60); Estimated Creatinine Clearance 60.22 ml/min; Globulin 4.2 g/dL (2.2-4.2); Glucose 150 mg/dL (74-106); Potassium 4.5 mmol/L (3.5-5.1); Sodium Level 136 mmol/L (136-145)
--- NOTE | 2019-07-20 09:33 | PN_ITS ---
Patient Problems: Active and Suspected Problems (Last Reviewed 04/01/17 @ 13:34 by Laendra Duarte) Sepsis (Acute) Acute respiratory failure with hypoxia (Acute) Bilateral pneumonia (Acute) Subjective: Chief complaint: Follow-up after admission for sepsis, acute bilateral probably viral pneumonia, suspected COVID-19 and acute hypoxic respiratory failure. Patient seen and examined. No acute events overnight. He is intubated, on recommendation. He is awake and alert. He was able to answer couple questions by head nodding. Shortness of breath is stable at this time. Denied any pain. He has been having spikes of fever, blood pressure and heart rate are maintained, on mechanical ventilation. - Physical Exam Vitals/I&O's: Vital Signs Temp Pulse Resp BP Pulse Ox 102.6 F H 85 33 H 122/78 H 95 07/20/19 09:00 07/20/19 09:00 07/20/19 09:00 07/20/19 09:00 07/20/19 09:00 Oxygen Flow Rate (L/min) 15 Oxygen Delivery Method Mechanical Ventilator Weight: 216 lb 14.958 oz Body Mass Index (BMI) 31.1 Intake and Output for Last 24 Hours 07/18/19 07/19/19 07/20/19 23:59 23:59 23:59 Intake Total 1124.84 / 1159.74 212.50 / 212.50 Output Total 250 / 250 Balance 1124.84 / 909.74 -37.50 / -37.50 General: Alert, Cooperative, No apparent distress, - - Intubated. HEENT: Atraumatic, PERRLA, EOMI, Normocephalic Oral: Moist Mucosa, No Gingival or Mucosal Lesions/ Ulcerations Neck: Supple, No JVD, Negative Carotid Bruits, Trachea Midline, Thyroid Normal Size and Texture Lungs: Clear to auscultation, No wheeze, No rales, Diminished, Rhonchi Cardiovascular: Regular rate, Regular Rhythm, Normal S1, Normal S2, PMI Normal Abdomen: Bowel Sounds Present, Soft, Non Tender, Non-Distended, No Hepato- splenomegaly Extremities: No clubbing, No cyanosis, No edema Skin: No rashes, No breakdown Lymphatic: No Cervical, Supraclavicular, or Inguinal Adenopathy Neurological: Cranial nerves II-XII grossly intact, Neuro grossly intact Psych/Mental Status: Normal Affect, Appropriate Laboratory Results 07/20/19 04:30: Sodium Pending, Potassium Pending, Chloride Pending, Carbon Dioxide Pending, Anion Gap Pending, BUN Pending, Creatinine Pending, Est GFR (MDRD) Af Amer Pending, Est GFR (MDRD) Non-Af Pending, BUN/Creatinine Ratio Pending, Glucose Pending, Calcium Pending, Total Bilirubin Pending, AST Pending, ALT Pending, Alkaline Phosphatase Pending, Total Protein Pending, Albumin Pending Current Medications Acetaminophen (Tylenol) 650 mg PO Q6H PRN PRN PRN Reason: Pain Score 1-10/Temp > 100.7 F Heparin Sodium (Porcine) (Heparin Na) 5,000 unit SC Q8 [facility] Last Admin: 07/19/19 22:00 Dose: 5,000 unit Documented by: Fentanyl () 100 mls @ 2.5 mls/hr IV UD [facility]; Protocol Last Titration: 07/20/19 09:00 Dose: 100 mcg/hr, 10 mls/hr Documented by: Propofol (Diprivan) 1,000 mg in 100 mls @ 6.024 mls/hr CONT INF .Q12H [facility]; Protocol Last Titration: 07/20/19 09:00 Dose: Infused Documented by: Sodium Chloride () 1,000 mls @ 50 mls/hr IV .Q20H [facility]INO Stop: 07/20/19 14:11 Last Admin: 07/19/19 19:12 Dose: Not Given Documented by: Piperacillin Sod/Tazobactam (Sod 3.375 gm/ Sodium Chloride) 50 mls @ 12.5 mls/hr IV Q8 [facility]ARCELINO Last Admin: 07/19/19 22:00 Dose: 12.5 mls/hr Documented by: Sodium Chloride () 250 mls @ 15 mls/hr IV .[id number] PRN PRN Reason: Saline Flush Last Admin: 07/19/19 22:01 Dose: 15 mls/hr Documented by: Sodium Chloride () 250 mls @ 15 mls/hr IV .[id number] PRN PRN Reason: Additional IVPB Infusion Influenza Virus Vaccine Quadrival (Flucelvax /Fluzone ) 0.5 ml IM .ONCE ONE Stop: 07/20/19 10:01 Ondansetron HCl (Zofran) 4 mg IV Q8H PRN PRN PRN Reason: NAUSEA/VOMITING Sodium Chloride () 10 - 40 ml IV UD PRN PRN Reason: SALINE FLUSH Medical Necessity - Tobacco Use Smoking Status: Never smoker Assessment/Plan All Active Problems (Last Reviewed 04/01/17 @ 13:34 by Leandra Duarte) Sepsis (Acute) Acute respiratory failure with hypoxia (Acute) Bilateral pneumonia (Acute) This is a 63 years old male patient presented to the emergency room because of worsening shortness of breath with cough and fever, found to have bilateral multifocal pulmonary opacities likely due to viral pneumonia and suspected COVID-19, complicated by acute hypoxic respiratory failure. #1 acute hypoxic respiratory failure: Secondary to #2. Patient is on mechanical ventilation. ABG revealed pH of 7.52, PCO2 of 23 and PO2 of 54. This morning, he is awake, spontaneous eye pain, following commands appropriately. He has been febrile, blood pressure and heart rate are maintained, on mechanical ventilation. He is on IV Zosyn. Blood and urine cultures are pending. Tobacco Cloth Reclaimer is on the case. Plan to continue same treatment. #2 acute bilateral probably viral pneumonia/sepsis/suspected COVID-19: On admission, patient was septic(febrile, tachycardic, distant tach tachypnea, leukocytosis). Lactic acid was normal. Chest x-ray reviewed. Blood and urine cultures are pending. COVID-19 testing is pending. Plan as above. #3 DVT prophylaxis: Subcu heparin. This note was generated with [employer] dictation software. It may contain incorrect words, spelling, and punctuation that were not noted in checking the note before signing. Inpatient E&M: [id number] Subs Hosp L2
[2019-07-20] MEDS: Propofol 10MG/Ml 1,000 MG/100 ML Bottle 15.1 MG CONT INF ×2 (10:00→17:25)
--- NOTE | 2019-07-20 10:38 | PCM.NTREPORT ---
Nutrition Therapy Report - History Nutrition Services has been consulted to:: Manage enteral nutrition Current diet / nutrition support order:: NPO - Anthropometric Measurements Height:: 5 ft 10 in Weight:: 98.4 kg Body Mass Index (BMI):: 31.1 - Relevant Labs Relevant Labs:: WBC 15.5 K/mm3 (4.4-11.0) H 07/19/19 16:15 MCHC 36.2 g/dL (32-36) H 07/19/19 16:15 MPV 12.4 fl (6.2-12.0) H 07/19/19 16:15 Neut % (Auto) 87.5 % (47-70) H 07/19/19 16:15 Lymph % (Auto) 7.4 % (19-41) L 07/19/19 16:15 Absolute Neuts (auto) 13.6 X10^3/uL (2.0-7.7) H 07/19/19 16:15 Sodium 133 mmol/L (136-145) L 07/19/19 17:10 BUN 28 mg/dL (7-18) H 07/20/19 04:30 Creatinine 1.33 mg/dL (0.70-1.30) H 07/20/19 04:30 Est GFR (MDRD) Non-Af 58 mL/min (>60) L 07/20/19 04:30 BUN/Creatinine Ratio 21.1 RATIO (10-20) H 07/20/19 04:30 Glucose 150 mg/dL (74-106) H 07/20/19 04:30 Calcium 8.1 mg/dL (8.5-10.1) L 07/19/19 17:10 Total Bilirubin 1.10 mg/dL (0.20-1.00) H 07/19/19 17:10 AST 39 U/L (15-37) H 07/20/19 04:30 Albumin 2.8 g/dL (3.2-5.0) L 07/20/19 04:30 Albumin/Globulin Ratio 0.7 RATIO (0.9-2.4) L 07/20/19 04:30 - Assessment Food / Nutrition-Related History:: Pt in isolation for suspected COVID-19. Discussed in ICU rounds. Pt is currently intubated w/ OG in place. No wt or diet hx available. Low suspicion for malnutrition. Per sebastian Barber for enteral nutrition support today. - Nutrition Diagnosis Problem / Etiology / Signs & Symptoms (PES):: Inadequate oral intake r/t resp. failure as evidenced by intubation/NPO status Evidence of Malnutrition Exists:: No - Nutrition Intervention Nutrition Prescription:: Will use ASPEN guidelines for critically ill obese patients to estimate nutritional needs: 1.2 g protein/kg CBW (98.4 kg) and 22-25 calories/kg IBW (75kg)- 0119-2998 calories/day; 110-120 g protein/day - Food / Nutrient Delivery Interventions Summary of nutrition intervention:: Will order enteral nutrition support Nutrition support ordered as / adjusted to:: Vital AF 1.2 via OG at goal rate of 65mL/hour w/ 100mL H2O flush every 4 hours to provide 1872 calories, 117 g protein, and 1856mL total fluid per day. Would start at 20mL/hour and increase by 15mL every 8 hours as pt tolerates until goal rate achieved. Nutrition education provided?: No - MNT Monitoring Further MNT monitoring and evaluation required?: Yes MNT Follow-up in:: 1-2 days
[2019-07-20 11:50] LABS: Absolute Lymphocyte Count 1.12 X10^3/uL (0.83-4.51); Absolute Neutrophil Count 12.8 X10^3/uL (2.0-7.7); Basophil# 0.02 X10^3/uL; Basophil% 0.1 % (0-1); Hematocrit 42.3 % (40-54); Hemoglobin 14.8 g/dL (13.0-16.5); Lymphocyte # 1.12 X10^3/ul (4.0); Lymphocyte % 7.5 % (19-41); Mean Corpuscular Hgb 30.2 pg (27.0-32.0); Mean Corpuscular Volume 86.3 fL (80-94); Mean Platelet Vol. 12.2 fl (6.2-12.0); Monocyte# 0.78 X10^3/uL; Monocyte% 5.3 % (0-10); NRBC Flagged by Analyzer 0 % (0-5); Neutrophil # 12.81 X10^3/uL (2.7-7.7); Neutrophil % 86.3 % (47-70); POSITIVE MORPHOLOGY YES; Platelet Count 199 K/mm3 (150-450); RBC Distribution Width CV 12.5 % (11.6-14.6); RBC Distribution Width SD 39.7 fl (35.1-43.9); White Blood Count 14.9 K/mm3 (4.4-11.0)
[2019-07-20 12:02] LABS: Differential Indicated SCAN CRITERIA MET
[2019-07-20 12:03] LABS: Differential Comment SCANNED
--- NOTE | 2019-07-20 13:25 | PCM.CON.CC ---
Problem List (1) Suspected 2019 novel coronavirus infection Status: Acute (2) ARDS (adult respiratory distress syndrome) Status: Acute (3) Sepsis Status: Acute (4) Acute respiratory failure with hypoxia Status: Acute (5) Bilateral pneumonia Status: Acute Reason for Consult Date of Consultation: 07/20/19 Reason for Consultation: Respiratory failure History of Present Illness: Late entry: The patient is a 63 year old M, with past medical history listed below, who presented to [facility] on 07/19/2019 secondary to worsening shortness of breath. Patient stated that he had been having symptoms for approximately 8 days and had presented to the ED 2 days prior to this presentation. Patient was started on oral antibiotics and discharged home. There was some concern for possible COVID, but patient was saturating well. Reportedly, patient was at home and his son had called from [place] and thought that he was confused. EMS was called to evaluate the patient and found the patient hypoxic. Patient reportedly was saturating 82% on a 15 L nonrebreather. In the ER, patient was noted to be in significant respiratory distress. Patient had an ABG showing a PaO2 of only 54 despite nonrebreather. Chest x-ray also showed worsening bilateral infiltrates. Patient was initiated on Zosyn therapy, given 1 L of IV fluids and intubated using full barrier precautions. Since being in the intensive care unit, patient did have to be increased to 12 of PEEP. Patient also noted to have significant fever overnight that is partially responsive to Tylenol therapy. On my evaluation this morning, patient was very interactive and estimated that he had been sick for approximately 8 days. Patient did feel subjectively improved compared to presentation and appeared to be answering appropriately. Unable to provide a complete review of systems secondary to intubation and sedation. Past Medical History Medical History: Medical History (Last Reviewed 04/01/17 @ 13:34 by Leandra Duarte) Inguinal hernia K40.90 Allergies No Known Allergies Allergy (Verified 07/19/19 16:00) Home Medications: Ambulatory Orders Medication Instructions Recorded Aspirin E.C. [Ecotrin] 81 mg PO DAILY@0800 03/18/17 Albuterol Inhaler [Ventolin Hfa] 2 puff INHALATION Q4H PRN PRN #1 07/17/19 inhaler Azithromycin [Zithromax Z-Scottie] 250 mg PO UD #1 box 07/17/19 Meloxicam 15 mg PO DAILY 07/17/19 Multivitamin [Multiple Vitamins] 1 tab PO DAILY 07/19/19 Tadalafil 10 mg PO DAILY PRN PRN 07/19/19 Surgical History: Surgical History (Last Updated 04/01/17 @ 13:34 by Leandra Duarte) S/P inguinal hernia repair Onset Date: ~03/25/17 Z98.890, Z87.19 Surgical History: noncontributory Lives: Alone Smoking Status: Never smoker - *Family History Maternal History Items: - - cannot obtain as pt is intubated Paternal History Items: - - cannot obtain as pt is intubated Review of Systems Unable to obtain accurate/complete ROS d/t: See HPI Patient Problems: Active and Suspected Problems (Last Reviewed 04/01/17 @ 13:34 by Leandra Duarte) Suspected 2019 novel coronavirus infection (Acute) ARDS (adult respiratory distress syndrome) (Acute) Sepsis (Acute) Acute respiratory failure with hypoxia (Acute) Bilateral pneumonia (Acute) - Physical Exam Vitals/I&O's: Vital Signs Temp Pulse Resp BP Pulse Ox 39.2 C H 70 29 H 118/74 96 07/20/19 09:00 07/20/19 12:00 07/20/19 12:00 07/20/19 12:00 07/20/19 12:00 Oxygen Flow Rate (L/min) 15 Oxygen Delivery Method Mechanical Ventilator Weight: 98.4 kg Body Mass Index (BMI) 31.1 Intake and Output for Last 24 Hours 07/18/19 07/19/19 07/20/19 23:59 23:59 23:59 Intake Total 1124.84 / 1159.74 416.37 / 416.37 Output Total 250 / 250 Balance 1124.84 / 909.74 166.37 / 166.37 General: Alert, Cooperative, No apparent distress, - - Good vent synchrony. Appears stated age. HEENT: Atraumatic, PERRLA, EOMI, Normocephalic, - - Scleral injection without icterus Oral: Moist Mucosa, No Gingival or Mucosal Lesions/ Ulcerations Neck: Supple, No JVD, No Nodes, Trachea Midline Lungs: No rhonchi, No wheeze, No rales, Diminished Cardiovascular: Regular rate, Regular Rhythm, Normal S1, Normal S2, No murmurs, No rub noted, No Gallop Abdomen: Bowel Sounds Present, Soft, Non Tender, Non-Distended Extremities: No clubbing, No cyanosis, No edema Skin: No rashes, No breakdown Musculoskeletal: No Tenderness to Palpation of Joints or Extremities, No Muscle Wasting Lymphatic: No Cervical, Supraclavicular, or Inguinal Adenopathy Neurological: Cranial nerves II-XII grossly intact, Neuro grossly intact, Motor Exam 5/5 strength throughout Psych/Mental Status: Normal Affect, Appropriate Laboratory Results 07/19/19 16:15: WBC 15.5 H, RBC 5.24, Hgb 15.6, Hct 43.1, MCV 82.3, MCH 29.8, MCHC 36.2 H, RDW Std Deviation 37.1, RDW Coeff of David 12.3, Plt Count 203, MPV 12.4 H, Immature Gran % (Auto) 0.600, Neut % (Auto) 87.5 H, Lymph % (Auto) 7.4 L, [place] % (Auto) 4.4, Eos % (Auto) 0.0, Baso % (Auto) 0.1, Absolute Neuts (auto) 13.6 H, Absolute Lymphs (auto) 1.15, Nucleated RBC % 0 07/19/19 16:15: PT Cancelled, INR Cancelled, APTT Cancelled 07/19/19 16:15: Sodium Cancelled, Potassium Cancelled, Chloride Cancelled, Carbon Dioxide Cancelled, Anion Gap Cancelled, BUN Cancelled, Creatinine Cancelled, Estim Creat Clear Calc Cancelled, Est GFR (MDRD) Af Amer Cancelled, Est GFR (MDRD) Non-Af Cancelled, BUN/Creatinine Ratio Cancelled, Glucose Cancelled, Calcium Cancelled, Total Bilirubin Cancelled, AST Cancelled, ALT Cancelled, Alkaline Phosphatase Cancelled, Total Protein Cancelled, Albumin Cancelled, Globulin Cancelled, Albumin/Globulin Ratio Cancelled 07/19/19 16:15: Lactic Acid Cancelled 07/19/19 16:20: Specimen Type ART, Sample Site R Radial, pH 7.52 H, Bicarbonate Actual 19.3 L, POC Total CO2 20, Base Excess -4 L, O2 Saturation 92 L, ABG pCO2 23.7 L, ABG pO2 54 L, Test POS, O2 Delivery Device NRB Mask, Liter Flow 15.0, Blood Gas Notified Whom ED MD, Blood Gas Notified Time 1608 07/19/19 17:10: Lactic Acid 1.8 07/19/19 17:10: Sodium 133 L, Potassium 3.9, Chloride 102, Carbon Dioxide 23.0, Anion Gap 8, BUN 26 H, Creatinine 1.22, Estim Creat Clear Calc 65.65, Est GFR (MDRD) Af Amer 77, Est GFR (MDRD) Non-Af 64, BUN/Creatinine Ratio 21.3 H, Glucose 178 H, Calcium 8.1 L, Total Bilirubin 1.10 H, AST 39 H, ALT 32, Alkaline Phosphatase 78, Total Protein 6.4, Albumin 2.7 L, Globulin 3.7, Albumin/Globulin Ratio 0.7 L 07/19/19 17:10: PT 14.8, INR 1.2, APTT 27.0 07/19/19 17:10: B-Natriuretic Peptide 68.0 07/19/19 17:10: Total Creatine Kinase 140, Triglycerides 120 07/19/19 18:13: Urine Color Yellow, Urine Clarity Clear, Urine pH 6.0, Ur Specific [place] 1.020, Urine Protein 100 H, Urine Glucose (UA) Normal, Urine Ketones 5 H, Urine Occult Blood 150 H, Urine Nitrite Negative, Urine Bilirubin Negative, Urine Urobilinogen 1 H, Ur Leukocyte Esterase 25 H, Urine RBC 0-5 SEEN, Urine WBC 0-5 SEEN, Ur Squamous Epith Cells 0 SEEN, Urine Bacteria RARE, Fine Granular Casts 0-5 SEEN, Urine Mucus RARE 07/19/19 18:40: COVID-19 (JESSICA) Pending 07/20/19 04:30: WBC 14.9 H, RBC 4.90, Hgb 14.8, Hct 42.3, MCV 86.3, MCH 30.2, MCHC 35.0, RDW Std Deviation 39.7, RDW Coeff of David 12.5, Plt Count 199, MPV 12.2 H, Immature Gran % (Auto) 0.800, Neut % (Auto) 86.3 H, Lymph % (Auto) 7.5 L, [place] % (Auto) 5.3, Eos % (Auto) 0.0, Baso % (Auto) 0.1, Absolute Neuts (auto) 12.8 H, Absolute Lymphs (auto) 1.12, Nucleated RBC % 0, Differential Comment SCANNED 07/20/19 04:30: Sodium 136, Potassium 4.5, Chloride 102, Carbon Dioxide 26.0, Anion Gap 8, BUN 28 H, Creatinine 1.33 H, Estim Creat Clear Calc 60.22, Est GFR (MDRD) Af Amer 70, Est GFR (MDRD) Non-Af 58 L, BUN/Creatinine Ratio 21.1 H, Glucose 150 H, Calcium 8.6, Total Bilirubin 1.00, AST 39 H, ALT 30, Alkaline Phosphatase 83, Total Protein 7.0, Albumin 2.8 L, Globulin 4.2, Albumin/Globulin Ratio 0.7 L Current Medications Acetaminophen (Tylenol Liquid) 650 mg NG Q6H PRN PRN PRN Reason: Pain Score 1-10/Temp > 100.7 F Famotidine (Pepcid) 20 mg PO BID [facility] Heparin Sodium (Porcine) (Heparin Na) 5,000 unit SC Q8 [facility] Last Admin: 07/20/19 06:00 Dose: 5,000 unit Documented by: Fentanyl () 100 mls @ 2.5 mls/hr IV UD [facility]; Protocol Last Titration: 07/20/19 12:00 Dose: Infused Documented by: Propofol (Diprivan) 1,000 mg in 100 mls @ 6.024 mls/hr CONT INF .Q12H [facility]; Protocol Last Titration: 07/20/19 12:00 Dose: 25 mcg/kg/min, 15.1 mls/hr Documented by: Sodium Chloride () 1,000 mls @ 50 mls/hr IV .Q20H [facility] Stop: 07/20/19 14:11 Last Admin: 07/19/19 19:12 Dose: Not Given Documented by: Piperacillin Sod/Tazobactam (Sod 3.375 gm/ Sodium Chloride) 50 mls @ 12.5 mls/hr IV Q8 [facility] Last Infusion: 07/20/19 10:00 Dose: Infused Documented by: Sodium Chloride () 250 mls @ 15 mls/hr IV .[id number] PRN PRN Reason: Saline Flush Last Admin: 07/19/19 22:01 Dose: 15 mls/hr Documented by: Sodium Chloride () 250 mls @ 15 mls/hr IV .[id number] PRN PRN Reason: Additional IVPB Infusion Enteral Nutritional Formula (Vital Af 1.2 [place] Liquid) 1,000 mls @ 65 mls/hr GT .[id number] MARCELINO Influenza Virus Vaccine Quadrival (Flucelvax /Fluzone ) 0.5 ml IM .ONCE ONE Stop: 07/22/19 10:01 Ondansetron HCl (Zofran) 4 mg IV Q8H PRN PRN PRN Reason: NAUSEA/VOMITING Sodium Chloride () 10 - 40 ml IV UD PRN PRN Reason: SALINE FLUSH Last Admin: 07/20/19 05:10 Dose: 10 ml Documented by: Clinical Impression(s) from Imaging Studies Chest X-Ray 07/19/19 16:23 IMPRESSION: Thickening multifocal bilateral pulmonary opacities most consistent with acute infection. Electronically Signed: Damaso Parra at 17:44 EDT Tel , Service support , Chest X-Ray 07/19/19 17:20 IMPRESSION: Endotracheal tube tip is in the midthoracic trachea. Enteric tube tip is in the stomach. Similar-appearing multifocal pulmonary opacities bilaterally. Electronically Signed: Damaso Parra at 17:49 EDT Tel , Service support , Assessment/Plan Active and Suspected Problems (Last Reviewed 04/01/17 @ 13:34 by Leandra Duarte) Suspected 2018 novel coronavirus infection (Acute) ARDS (adult respiratory distress syndrome) (Acute) Sepsis (Acute) Acute respiratory failure with hypoxia (Acute) Bilateral pneumonia (Acute) RECOMMENDATIONS: 1. Consult infectious disease 2. Agree with empiric antibiotics 3. Low tidal volume, high PEEP ventilatory strategy 4. Limit fluids. Okay to start tube feeds 5. Plaquenil and azithromycin per ID IMPRESSIONS: 1. Acute hypoxic respiratory failure secondary to ARDS secondary to possible novel COVID 19 Patient with worsening infiltrates bilaterally. Patient does have a significant leukocytosis, so concomitant bacterial infection cannot be excluded. Agree with empiric antibiotics at this time. Patient has slightly improved since presentation. Infectious disease will be consulted. Cultures are currently pending. Patient does not have a history of smoking or underlying lung disease, so no steroids would be indicated. Continue to attempt a low tidal volume, high PEEP ventilatory strategy. Await COVID 19 testing. 2. Limited history/chronic pain/obesity/prophylaxis Complicates care, management, recovery and prognosis. Patient does appear to be improving with respiratory stabilization. On fentanyl therapy, so Mobic is likely not indicated. Tube feeds have been initiated. DVT and GI prophylaxis will be ordered. TIME: 62 minutes of critical care time spent addressing patient's acute hypoxic respiratory failure, ARDS, prophylaxis, review of all data and collaboration with care team (8 AM to 10 AM) [phone]: [id number] Critical care first hour
[2019-07-20] MEDS: Vital AF 1.2 Cal Liquid 1,000 ML 65 ML GT (13:38)
--- NOTE | 2019-07-20 14:22 | PCM.HP.ID ---
Reason for Consult: suspected covid Consulted by: Dr. Carroll History of Present Illness: The patient is a 63 year old M with minimal PMH, presented last evening with about a week of cough, fever, aches, nausea, not feeling well. Seen in ED 07/16, had neg flu and RSV Ag. Developed dyspnea, confusion. EMS called, found to be hypoxic. Taken to ED, intubated, admitted to icu on zosyn. Feeling better, FiO2 weaned down overnight. ROS performed and neg except as noted above. - Medical History Surgical History: reviewed Allergies/Adverse Reactions: Allergies No Known Allergies Allergy (Verified 07/19/19 16:00) Home Medications: Ambulatory Orders Medication Instructions Recorded Aspirin E.C. [Ecotrin] 81 mg PO DAILY@0800 03/18/17 Albuterol Inhaler [Ventolin Hfa] 2 puff INHALATION Q4H PRN PRN #1 07/17/19 inhaler Azithromycin [Zithromax Z-Scottie] 250 mg PO UD #1 box 07/17/19 Meloxicam 15 mg PO DAILY 07/17/19 Multivitamin [Multiple Vitamins] 1 tab PO DAILY 07/19/19 Tadalafil 10 mg PO DAILY PRN PRN 07/19/19 - Social History Tobacco Use: non-smoker Vital Signs Temp Pulse Resp BP Pulse Ox 101.4 F H 68 25 H 131/69 H 96 07/20/19 14:00 07/20/19 14:00 07/20/19 14:00 07/20/19 14:00 07/20/19 14:00 Oxygen Flow Rate (L/min) 15 Oxygen Delivery Method Mechanical Ventilator Weight: 98.4 kg Body Mass Index (BMI) 31.1 Laboratory Tests Past 24 Hrs 07/19/19 07/19/19 07/19/19 16:15 16:15 16:15 WBC 15.5 H RBC 5.24 Hgb 15.6 Hct 43.1 MCV 82.3 MCH 29.8 MCHC 36.2 H RDW Std Deviation 37.1 RDW Coeff of David 12.3 Plt Count 203 MPV 12.4 H Immature Gran % (Auto) 0.600 Neut % (Auto) 87.5 H Lymph % (Auto) 7.4 L [place] % (Auto) 4.4 Eos % (Auto) 0.0 Baso % (Auto) 0.1 Absolute Neuts (auto) 13.6 H Absolute Lymphs (auto) 1.15 Nucleated RBC % 0 Differential Comment PT Cancelled INR Cancelled APTT Cancelled Specimen Type Sample Site pH Bicarbonate Actual POC Total CO2 Base Excess O2 Saturation ABG pCO2 ABG pO2 Test O2 Delivery Device Liter Flow Blood Gas Notified Whom Blood Gas Notified Time Sodium Cancelled Potassium Cancelled Chloride Cancelled Carbon Dioxide Cancelled Anion Gap Cancelled BUN Cancelled Creatinine Cancelled Estim Creat Clear Calc Cancelled Est GFR (MDRD) Af Amer Cancelled Est GFR (MDRD) Non-Af Cancelled BUN/Creatinine Ratio Cancelled Glucose Cancelled Lactic Acid Calcium Cancelled Total Bilirubin Cancelled AST Cancelled ALT Cancelled Alkaline Phosphatase Cancelled Total Creatine Kinase B-Natriuretic Peptide Total Protein Cancelled Albumin Cancelled Globulin Cancelled Albumin/Globulin Ratio Cancelled Triglycerides Urine Color Urine Clarity Urine pH Ur Specific [place] Urine Protein Urine Glucose (UA) Urine Ketones Urine Occult Blood Urine Nitrite Urine Bilirubin Urine Urobilinogen Ur Leukocyte Esterase Urine RBC Urine WBC Ur Squamous Epith Cells Urine Bacteria Fine Granular Casts Urine Mucus COVID-19 (JESSICA) 07/19/19 07/19/19 07/19/19 16:15 16:20 17:10 WBC RBC Hgb Hct MCV MCH MCHC RDW Std Deviation RDW Coeff of David Plt Count MPV Immature Gran % (Auto) Neut % (Auto) Lymph % (Auto) [place] % (Auto) Eos % (Auto) Baso % (Auto) Absolute Neuts (auto) Absolute Lymphs (auto) Nucleated RBC % Differential Comment PT INR APTT Specimen Type ART Sample Site R Radial pH 7.52 H Bicarbonate Actual 19.3 L POC Total CO2 20 Base Excess -4 L O2 Saturation 92 L ABG pCO2 23.7 L ABG pO2 54 L Test POS O2 Delivery Device NRB Mask Liter Flow 15.0 Blood Gas Notified Whom ED Blood Gas Notified Time 1608 Sodium Potassium Chloride Carbon Dioxide Anion Gap BUN Creatinine Estim Creat Clear Calc Est GFR (MDRD) Af Amer Est GFR (MDRD) Non-Af BUN/Creatinine Ratio Glucose Lactic Acid Cancelled 1.8 Calcium Total Bilirubin AST ALT Alkaline Phosphatase Total Creatine Kinase B-Natriuretic Peptide Total Protein Albumin Globulin Albumin/Globulin Ratio Triglycerides Urine Color Urine Clarity Urine pH Ur Specific [place] Urine Protein Urine Glucose (UA) Urine Ketones Urine Occult Blood Urine Nitrite Urine Bilirubin Urine Urobilinogen Ur Leukocyte Esterase Urine RBC Urine WBC Ur Squamous Epith Cells Urine Bacteria Fine Granular Casts Urine Mucus COVID-19 (JESSICA) 07/19/19 07/19/19 07/19/19 17:10 17:10 17:10 WBC RBC Hgb Hct MCV MCH MCHC RDW Std Deviation RDW Coeff of David Plt Count MPV Immature Gran % (Auto) Neut % (Auto) Lymph % (Auto) [place] % (Auto) Eos % (Auto) Baso % (Auto) Absolute Neuts (auto) Absolute Lymphs (auto) Nucleated RBC % Differential Comment PT 14.8 INR 1.2 APTT 27.0 Specimen Type Sample Site pH Bicarbonate Actual POC Total CO2 Base Excess O2 Saturation ABG pCO2 ABG pO2 Test O2 Delivery Device Liter Flow Blood Gas Notified Whom Blood Gas Notified Time Sodium 133 L Potassium 3.9 Chloride 102 Carbon Dioxide 23.0 Anion Gap 8 BUN 26 H Creatinine 1.22 Estim Creat Clear Calc 65.65 Est GFR (MDRD) Af Amer 77 Est GFR (MDRD) Non-Af 64 BUN/Creatinine Ratio 21.3 H Glucose 178 H Lactic Acid Calcium 8.1 L Total Bilirubin 1.10 H AST 39 H ALT 32 Alkaline Phosphatase 78 Total Creatine Kinase B-Natriuretic Peptide 68.0 Total Protein 6.4 Albumin 2.7 L Globulin 3.7 Albumin/Globulin Ratio 0.7 L Triglycerides Urine Color Urine Clarity Urine pH Ur Specific [place] Urine Protein Urine Glucose (UA) Urine Ketones Urine Occult Blood Urine Nitrite Urine Bilirubin Urine Urobilinogen Ur Leukocyte Esterase Urine RBC Urine WBC Ur Squamous Epith Cells Urine Bacteria Fine Granular Casts Urine Mucus COVID-19 (JESSICA) 07/19/19 07/19/19 07/19/19 17:10 18:13 18:40 WBC RBC Hgb Hct MCV MCH MCHC RDW Std Deviation RDW Coeff of David Plt Count MPV Immature Gran % (Auto) Neut % (Auto) Lymph % (Auto) [place] % (Auto) Eos % (Auto) Baso % (Auto) Absolute Neuts (auto) Absolute Lymphs (auto) Nucleated RBC % Differential Comment PT INR APTT Specimen Type Sample Site pH Bicarbonate Actual POC Total CO2 Base Excess O2 Saturation ABG pCO2 ABG pO2 Test O2 Delivery Device Liter Flow Blood Gas Notified Whom Blood Gas Notified Time Sodium Potassium Chloride Carbon Dioxide Anion Gap BUN Creatinine Estim Creat Clear Calc Est GFR (MDRD) Af Amer Est GFR (MDRD) Non-Af BUN/Creatinine Ratio Glucose Lactic Acid Calcium Total Bilirubin AST ALT Alkaline Phosphatase Total Creatine Kinase 140 B-Natriuretic Peptide Total Protein Albumin Globulin Albumin/Globulin Ratio Triglycerides 120 Urine Color Yellow Urine Clarity Clear Urine pH 6.0 Ur Specific [place] 1.020 Urine Protein 100 H Urine Glucose (UA) Normal Urine Ketones 5 H Urine Occult Blood 150 H Urine Nitrite Negative Urine Bilirubin Negative Urine Urobilinogen 1 H Ur Leukocyte Esterase 25 H Urine RBC 0-5 SEEN Urine WBC 0-5 SEEN Ur Squamous Epith Cells 0 SEEN Urine Bacteria RARE Fine Granular Casts 0-5 SEEN Urine Mucus RARE COVID-19 (JESSICA) Pending 07/20/19 07/20/19 04:30 04:30 WBC 14.9 H RBC 4.90 Hgb 14.8 Hct 42.3 MCV 86.3 MCH 30.2 MCHC 35.0 RDW Std Deviation 39.7 RDW Coeff of David 12.5 Plt Count 199 MPV 12.2 H Immature Gran % (Auto) 0.800 Neut % (Auto) 86.3 H Lymph % (Auto) 7.5 L [place] % (Auto) 5.3 Eos % (Auto) 0.0 Baso % (Auto) 0.1 Absolute Neuts (auto) 12.8 H Absolute Lymphs (auto) 1.12 Nucleated RBC % 0 Differential Comment SCANNED PT INR APTT Specimen Type Sample Site pH Bicarbonate Actual POC Total CO2 Base Excess O2 Saturation ABG pCO2 ABG pO2 Test O2 Delivery Device Liter Flow Blood Gas Notified Whom Blood Gas Notified Time Sodium 136 Potassium 4.5 Chloride 102 Carbon Dioxide 26.0 Anion Gap 8 BUN 28 H Creatinine 1.33 H Estim Creat Clear Calc 60.22 Est GFR (MDRD) Af Amer 70 Est GFR (MDRD) Non-Af 58 L BUN/Creatinine Ratio 21.1 H Glucose 150 H Lactic Acid Calcium 8.6 Total Bilirubin 1.00 AST 39 H ALT 30 Alkaline Phosphatase 83 Total Creatine Kinase B-Natriuretic Peptide Total Protein 7.0 Albumin 2.8 L Globulin 4.2 Albumin/Globulin Ratio 0.7 L Triglycerides Urine Color Urine Clarity Urine pH Ur Specific [place] Urine Protein Urine Glucose (UA) Urine Ketones Urine Occult Blood Urine Nitrite Urine Bilirubin Urine Urobilinogen Ur Leukocyte Esterase Urine RBC Urine WBC Ur Squamous Epith Cells Urine Bacteria Fine Granular Casts Urine Mucus COVID-19 (JESSICA) - Other Studies Radiology: [] reviewed Other Studies: [] Route of nutrition/ use of supplements: [] Nutritional Intake: [] IV Site: [] [place] Catheter: [] - Physical Exam General: Alert - on vent, Cooperative, No apparent distress HEENT: Atraumatic, PERRLA, EOMI Neck: Supple, No Nodes Lungs: Diminished Cardiovascular: Regular rate, Regular Rhythm Abdomen: Soft, Non Tender, Non-Distended Extremities: No edema Skin: No rashes Musculoskeletal: No Tenderness to Palpation of Joints or Extremities Neurological: Cranial nerves II-XII grossly intact - Assessment/Plan Antibiotics: [] Assessment/Plan: [] Active and Suspected Problems (Last Reviewed 04/01/17 @ 13:34 by Leandra Duarte) Suspected 2019 novel coronavirus infection (Acute) ARDS (adult respiratory distress syndrome) (Acute) Sepsis (Acute) Acute respiratory failure with hypoxia (Acute) Bilateral pneumonia (Acute) Acute hypoxic resp failure with sepsis - covid pending. Will order resp pcr panel. On empiric zosyn. Given overall improvement in oxygenation, lack of comorbidities, and pending covid, will not start plaquenil. Will follow, thank you, d/w Dr. Carroll.
[2019-07-20] MEDS: Acetaminophen 650 MG/20 ML UDC NG (20:57)
[2019-07-20] MEDS: Famotidine 20 MG Tablet GT (21:00)
[2019-07-21] VITALS (34 sets, daily range): BP systolic 112–143; BP diastolic 56–93; PULSE 64–112; RESP 15–33; TEMP 37.7–39.1; O2SAT 81–97
[2019-07-21] MEDS: Propofol 10MG/Ml 1,000 MG/100 ML Bottle 6 MG CONT INF ×2 (04:17→15:55)
[2019-07-21] MEDS: Acetaminophen 650 MG/20 ML UDC NG (04:17)
[2019-07-21 04:52] LABS: Absolute Lymphocyte Count 1.19 X10^3/uL (0.83-4.51); Absolute Neutrophil Count 5.8 X10^3/uL (2.0-7.7); Basophil# 0.02 X10^3/uL; Basophil% 0.3 % (0-1); Eosinophil# 0.02 X10^3/uL; Eosinophils% 0.3 % (0-5); Hematocrit 37.6 % (40-54); Hemoglobin 13.1 g/dL (13.0-16.5); Lymphocyte # 1.19 X10^3/ul (4.0); Lymphocyte % 15.3 % (19-41); Mean Corp Hgb Conc 34.8 g/dL (32-36); Mean Corpuscular Hgb 30.3 pg (27.0-32.0); Mean Corpuscular Volume 86.8 fL (80-94); Mean Platelet Vol. 11.8 fl (6.2-12.0); Monocyte# 0.71 X10^3/uL; Monocyte% 9.1 % (0-10); NRBC Flagged by Analyzer 0 % (0-5); Neutrophil # 5.75 X10^3/uL (2.7-7.7); Neutrophil % 74.1 % (47-70); Platelet Count 218 K/mm3 (150-450); RBC Distribution Width CV 12.6 % (11.6-14.6); Red Blood Count 4.33 M/mm3 (4.6-6.2); White Blood Count 7.8 K/mm3 (4.4-11.0)
[2019-07-21 05:20] LABS: ALB/GLOB Ratio 0.6 RATIO (0.9-2.4); AST(SGOT) 51 U/L (15-37); Alanine Aminotransfer ALT/SGPT 42 U/L (16-61); Albumin, Serum 2.5 g/dL (3.2-5.0); Alkaline Phosphatase 104 U/L (45-117); Anion Gap 7 (5-15); BUN 30 mg/dL (7-18); Calcium,Total 8.5 mg/dL (8.5-10.1); Chloride 103 mmol/L (98-107); Creatinine, Serum 1.25 mg/dL (0.70-1.30); EST Glomerular Filtration Rate 62 mL/min (>60); Est Glom Filt Rate - Afr Amer 75 mL/min (>60); Estimated Creatinine Clearance 64.08 ml/min; Globulin 4.3 g/dL (2.2-4.2); Glucose 138 mg/dL (74-106); Potassium 3.9 mmol/L (3.5-5.1); Protein, Total 6.8 g/dL (6.4-8.2); Sodium Level 137 mmol/L (136-145)
[2019-07-21] MEDS: Heparin Injection (Vial) 5,000 UNIT/ML VIAL 5000 UNIT SC ×3 (05:58→21:37)
--- NOTE | 2019-07-21 08:23 | PN_ITS ---
Patient Problems: Active and Suspected Problems (Last Reviewed 04/01/17 @ 13:34 by Leandra Duarte) Suspected 2019 novel coronavirus infection (Acute) ARDS (adult respiratory distress syndrome) (Acute) Sepsis (Acute) Acute respiratory failure with hypoxia (Acute) Bilateral pneumonia (Acute) Subjective: Chief complaint: Follow-up after admission for sepsis, acute bilateral probably viral pneumonia, suspected COVID-19 and acute hypoxic respiratory failure. Patient seen and examined. No acute events overnight. Smiling, he remained on mechanical ventilation, alert and awake. Denies any complaints. He still having spikes of fever, blood pressure and heart rate are maintained. - Physical Exam Vitals/I&O's: Vital Signs Temp Pulse Resp BP Pulse Ox 101.0 F H 68 29 H 121/74 H 94 07/21/19 07:00 07/21/19 07:00 07/21/19 07:00 07/21/19 07:00 07/21/19 07:00 Oxygen Flow Rate (L/min) 15 Oxygen Delivery Method Mechanical Ventilator Weight: 214 lb 8.156 oz Body Mass Index (BMI) 31.1 Intake and Output for Last 24 Hours 07/19/19 07/20/19 07/21/19 23:59 23:59 23:59 Intake Total 1124.84 / 1159.74 1257.41 / 1677.41 927.39 / 927.39 Output Total 850 / 1300 800 / 800 Balance 1124.84 / 909.74 407.41 / 377.41 127.39 / 127.39 General: Alert, Cooperative, - - Minimally short of breath. HEENT: Atraumatic, PERRLA, EOMI, Normocephalic Oral: Moist Mucosa, No Gingival or Mucosal Lesions/ Ulcerations Neck: Supple, No JVD, Negative Carotid Bruits, Trachea Midline, Thyroid Normal Size and Texture Lungs: Normal air movement, No wheeze, No rales, Diminished, Rhonchi Cardiovascular: Regular rate, Regular Rhythm, Normal S1, Normal S2, PMI Normal Abdomen: Bowel Sounds Present, Soft, Non Tender, Non-Distended, No Hepato- splenomegaly Extremities: No clubbing, No cyanosis, No edema Skin: No rashes, No breakdown Lymphatic: No Cervical, Supraclavicular, or Inguinal Adenopathy Neurological: Cranial nerves II-XII grossly intact, Neuro grossly intact Psych/Mental Status: Normal Affect, Appropriate Microbiology Past 72 Hours 07/20/19 16:34 Mucosa - Nasopharyngeal Respiratory Panel (PCR) - Final Laboratory Results 07/20/19 04:30: WBC 14.9 H, RBC 4.90, Hgb 14.8, Hct 42.3, MCV 86.3, MCH 30.2, MCHC 35.0, RDW Std Deviation 39.7, RDW Coeff of David 12.5, Plt Count 199, MPV 12.2 H, Immature Gran % (Auto) 0.800, Neut % (Auto) 86.3 H, Lymph % (Auto) 7.5 L , [place] % (Auto) 5.3, Eos % (Auto) 0.0, Baso % (Auto) 0.1, Absolute Neuts (auto) 12.8 H, Absolute Lymphs (auto) 1.12, Nucleated RBC % 0, Differential Comment SCANNED 07/20/19 04:30: Sodium 136, Potassium 4.5, Chloride 102, Carbon Dioxide 26.0, Anion Gap 8, BUN 28 H, Creatinine 1.33 H, Estim Creat Clear Calc 60.22, Est GFR (MDRD) Af Amer 70, Est GFR (MDRD) Non-Af 58 L, BUN/Creatinine Ratio 21.1 H, Glucose 150 H, Calcium 8.6, Total Bilirubin 1.00, AST 39 H, ALT 30, Alkaline Phosphatase 83, Total Protein 7.0, Albumin 2.8 L, Globulin 4.2, Albumin/Globulin Ratio 0.7 L 07/21/19 04:30: WBC 7.8, RBC 4.33 L, Hgb 13.1, Hct 37.6 L, MCV 86.8, MCH 30.3, MCHC 34.8, RDW Std Deviation 40.0, RDW Coeff of David 12.6, Plt Count 218, MPV 11.8, Immature Gran % (Auto) 0.900, Neut % (Auto) 74.1 H, Lymph % (Auto) 15.3 L, [place] % (Auto) 9.1, Eos % (Auto) 0.3, Baso % (Auto) 0.3, Absolute Neuts (auto) 5.8, Absolute Lymphs (auto) 1.19, Nucleated RBC % 0 07/21/19 04:30: Sodium 137, Potassium 3.9, Chloride 103, Carbon Dioxide 27.0, Anion Gap 7, BUN 30 H, Creatinine 1.25, Estim Creat Clear Calc 64.08, Est GFR (MDRD) Af Amer 75, Est GFR (MDRD) Non-Af 62, BUN/Creatinine Ratio 24.0 H, Glucose 138 H, Calcium 8.5, Total Bilirubin 1.30 H, AST 51 H, ALT 42, Alkaline Phosphatase 104, Total Protein 6.8, Albumin 2.5 L, Globulin 4.3 H, Albumin/Globulin Ratio 0.6 L Current Medications Acetaminophen (Tylenol Liquid) 650 mg NG Q6H PRN PRN PRN Reason: Pain Score 1-10/Temp > 100.7 F Last Admin: 07/21/19 04:17 Dose: 650 mg Documented by: Famotidine (Pepcid) 20 mg GT BID MARCELINO Last Admin: 07/20/19 21:00 Dose: 20 mg Documented by: Heparin Sodium (Porcine) (Heparin Na) 5,000 unit SC Q8 MARCELINO Last Admin: 07/21/19 05:58 Dose: 5,000 unit Documented by: Fentanyl () 100 mls @ 2.5 mls/hr IV UD MARCELINO; Protocol Last Titration: 07/21/19 06:00 Dose: 50 mcg/hr, 5 mls/hr Documented by: Propofol (Diprivan) 1,000 mg in 100 mls @ 6.024 mls/hr CONT INF .Q12H MARCELINO; Protocol Last Titration: 07/21/19 07:00 Dose: 10 mcg/kg/min, 6 mls/hr Documented by: Piperacillin Sod/Tazobactam (Sod 3.375 gm/ Sodium Chloride) 50 mls @ 12.5 mls/hr IV Q8 MARCELINO Last Admin: 07/21/19 05:58 Dose: 12.5 mls/hr Documented by: Sodium Chloride () 250 mls @ 15 mls/hr IV .[id number] PRN PRN Reason: Saline Flush Last Admin: 07/21/19 05:58 Dose: 15 mls/hr Documented by: Sodium Chloride () 250 mls @ 15 mls/hr IV .[id number] PRN PRN Reason: Additional IVPB Infusion Enteral Nutritional Formula (Vital Af 1.2 [place] Liquid) 1,000 mls @ 65 mls/hr GT .[id number] MARCELINO Last Admin: 07/21/19 05:09 Dose: Not Given Documented by: Influenza Virus Vaccine Quadrival (Flucelvax /Fluzone ) 0.5 ml IM .ONCE ONE Stop: 07/22/19 10:01 Ondansetron HCl (Zofran) 4 mg IV Q8H PRN PRN PRN Reason: NAUSEA/VOMITING Sodium Chloride () 10 - 40 ml IV UD PRN PRN Reason: SALINE FLUSH Last Admin: 07/20/19 05:10 Dose: 10 ml Documented by: Medical Necessity - Tobacco Use Smoking Status: Never smoker Assessment/Plan All Active Problems (Last Reviewed 04/01/17 @ 13:34 by Leandra Duarte) Suspected 2019 novel coronavirus infection (Acute) ARDS (adult respiratory distress syndrome) (Acute) Sepsis (Acute) Acute respiratory failure with hypoxia (Acute) Bilateral pneumonia (Acute) This is a 63 years old male patient presented to the emergency room because of worsening shortness of breath with cough and fever, found to have bilateral multifocal pulmonary opacities likely due to viral pneumonia and suspected COVID-19, complicated by acute hypoxic respiratory failure. #1 acute hypoxic respiratory failure: Secondary to #2. Patient remained on mechanical ventilation, PEEP of 12 and FiO2 of 50%. He is still having spikes of fever, other vital signs are stable. He is on IV Zosyn. Repeat routine blood work from today was unremarkable. Respiratory panel for viruses were negative. Blood and urine cultures are pending. [employer] is on the case. Plan to continue same treatment. #2 acute bilateral probably viral pneumonia/sepsis/suspected COVID-19: He is on IV Zosyn, on mechanical ventilation. Still having spikes of fever, leukocytosis resolved. Lactic acid was normal. Chest x-ray reviewed. Blood and urine cultures are pending. COVID-19 testing is pending. Plan as above. #3 DVT prophylaxis: Subcu heparin. This note was generated with [employer] dictation software. It may contain incorrect words, spelling, and punctuation that were not noted in checking the note before signing. Inpatient E&M: 35946 Subs Hosp L2
--- NOTE | 2019-07-21 08:38 | PN_ITS ---
Subjective: Patient did well overnight. Patient continues to be interactive and not requiring restraints. Patient did well from a respiratory standpoint, but did have a desaturation episode at approximately 4 AM associated with suctioning. Patient denies any pain. Fever curve is slowly improving. General: Alert, Cooperative, No apparent distress, - - Follows commands. HEENT: Atraumatic, PERRLA, EOMI, Normocephalic, - - No scleral icterus or injection noted. Oral: Moist Mucosa, No Gingival or Mucosal Lesions/ Ulcerations Neck: Supple, No JVD, No Nodes, Trachea Midline Lungs: No rhonchi, No wheeze, No rales, Diminished, - - Symmetric expansion. No dullness to percussion. Cardiovascular: Regular rate, Regular Rhythm, Normal S1, Normal S2, No murmurs, No rub noted, No Gallop Abdomen: Bowel Sounds Present, Soft, Non Tender, Distended - Slightly Extremities: No clubbing, No cyanosis, No edema, Capillary Refill Less than 3 Seconds Skin: No rashes, No breakdown Musculoskeletal: No Tenderness to Palpation of Joints or Extremities Lymphatic: No Cervical, Supraclavicular, or Inguinal Adenopathy Neurological: Cranial nerves II-XII grossly intact, Neuro grossly intact, Motor Exam 5/5 strength throughout Psych/Mental Status: Normal Affect, Appropriate Vital Signs Temp Pulse Resp BP Pulse Ox 38.3 C H 68 29 H 121/74 H 94 07/21/19 07:00 07/21/19 07:00 07/21/19 07:00 07/21/19 07:00 07/21/19 07:00 Oxygen Flow Rate (L/min) 15 Oxygen Delivery Method Mechanical Ventilator Weight: 97.3 kg Body Mass Index (BMI) 31.1 Intake and Output for Last 24 Hours 07/19/19 07/20/19 07/21/19 23:59 23:59 23:59 Intake Total 1124.84 / 1159.74 1257.41 / 1677.41 927.39 / 927.39 Output Total 850 / 1300 800 / 800 Balance 1124.84 / 909.74 407.41 / 377.41 127.39 / 127.39 Labs (Last 48 Hours) 07/19/19 07/19/19 07/19/19 16:15 16:15 16:15 WBC 15.5 H RBC 5.24 Hgb 15.6 Hct 43.1 MCV 82.3 MCH 29.8 MCHC 36.2 H RDW Std Deviation 37.1 RDW Coeff of David 12.3 Plt Count 203 MPV 12.4 H Immature Gran % (Auto) 0.600 Neut % (Auto) 87.5 H Lymph % (Auto) 7.4 L [place] % (Auto) 4.4 Eos % (Auto) 0.0 Baso % (Auto) 0.1 Absolute Neuts (auto) 13.6 H Absolute Lymphs (auto) 1.15 Nucleated RBC % 0 Differential Comment PT Cancelled INR Cancelled APTT Cancelled Specimen Type Sample Site pH Bicarbonate Actual POC Total CO2 Base Excess O2 Saturation ABG pCO2 ABG pO2 Test O2 Delivery Device Liter Flow Blood Gas Notified Whom Blood Gas Notified Time Sodium Cancelled Potassium Cancelled Chloride Cancelled Carbon Dioxide Cancelled Anion Gap Cancelled BUN Cancelled Creatinine Cancelled Estim Creat Clear Calc Cancelled Est GFR (MDRD) Af Amer Cancelled Est GFR (MDRD) Non-Af Cancelled BUN/Creatinine Ratio Cancelled Glucose Cancelled Lactic Acid Calcium Cancelled Total Bilirubin Cancelled AST Cancelled ALT Cancelled Alkaline Phosphatase Cancelled Total Creatine Kinase B-Natriuretic Peptide Total Protein Cancelled Albumin Cancelled Globulin Cancelled Albumin/Globulin Ratio Cancelled Triglycerides Urine Color Urine Clarity Urine pH Ur Specific Malcolm Urine Protein Urine Glucose (UA) Urine Ketones Urine Occult Blood Urine Nitrite Urine Bilirubin Urine Urobilinogen Ur Leukocyte Esterase Urine RBC Urine WBC Ur Squamous Epith Cells Urine Bacteria Fine Granular Casts Urine Mucus COVID-19 (JESSICA) 07/19/19 07/19/19 07/19/19 16:15 16:20 17:10 WBC RBC Hgb Hct MCV MCH MCHC RDW Std Deviation RDW Coeff of David Plt Count MPV Immature Gran % (Auto) Neut % (Auto) Lymph % (Auto) [place] % (Auto) Eos % (Auto) Baso % (Auto) Absolute Neuts (auto) Absolute Lymphs (auto) Nucleated RBC % Differential Comment PT INR APTT Specimen Type ART Sample Site R Radial pH 7.52 H Bicarbonate Actual 19.3 L POC Total CO2 20 Base Excess -4 L O2 Saturation 92 L ABG pCO2 23.7 L ABG pO2 54 L Test POS O2 Delivery Device NRB Mask Liter Flow 15.0 Blood Gas Notified Whom ED Blood Gas Notified Time 1608 Sodium Potassium Chloride Carbon Dioxide Anion Gap BUN Creatinine Estim Creat Clear Calc Est GFR (MDRD) Af Amer Est GFR (MDRD) Non-Af BUN/Creatinine Ratio Glucose Lactic Acid Cancelled 1.8 Calcium Total Bilirubin AST ALT Alkaline Phosphatase Total Creatine Kinase B-Natriuretic Peptide Total Protein Albumin Globulin Albumin/Globulin Ratio Triglycerides Urine Color Urine Clarity Urine pH Ur Specific Malcolm Urine Protein Urine Glucose (UA) Urine Ketones Urine Occult Blood Urine Nitrite Urine Bilirubin Urine Urobilinogen Ur Leukocyte Esterase Urine RBC Urine WBC Ur Squamous Epith Cells Urine Bacteria Fine Granular Casts Urine Mucus COVID-19 (JESSICA) 07/19/19 07/19/19 07/19/19 17:10 17:10 17:10 WBC RBC Hgb Hct MCV MCH MCHC RDW Std Deviation RDW Coeff of David Plt Count MPV Immature Gran % (Auto) Neut % (Auto) Lymph % (Auto) [place] % (Auto) Eos % (Auto) Baso % (Auto) Absolute Neuts (auto) Absolute Lymphs (auto) Nucleated RBC % Differential Comment PT 14.8 INR 1.2 APTT 27.0 Specimen Type Sample Site pH Bicarbonate Actual POC Total CO2 Base Excess O2 Saturation ABG pCO2 ABG pO2 Test O2 Delivery Device Liter Flow Blood Gas Notified Whom Blood Gas Notified Time Sodium 133 L Potassium 3.9 Chloride 102 Carbon Dioxide 23.0 Anion Gap 8 BUN 26 H Creatinine 1.22 Estim Creat Clear Calc 65.65 Est GFR (MDRD) Af Amer 77 Est GFR (MDRD) Non-Af 64 BUN/Creatinine Ratio 21.3 H Glucose 178 H Lactic Acid Calcium 8.1 L Total Bilirubin 1.10 H AST 39 H ALT 32 Alkaline Phosphatase 78 Total Creatine Kinase B-Natriuretic Peptide 68.0 Total Protein 6.4 Albumin 2.7 L Globulin 3.7 Albumin/Globulin Ratio 0.7 L Triglycerides Urine Color Urine Clarity Urine pH Ur Specific Malcolm Urine Protein Urine Glucose (UA) Urine Ketones Urine Occult Blood Urine Nitrite Urine Bilirubin Urine Urobilinogen Ur Leukocyte Esterase Urine RBC Urine WBC Ur Squamous Epith Cells Urine Bacteria Fine Granular Casts Urine Mucus COVID-19 (JESSICA) 07/19/19 07/19/19 07/19/19 17:10 18:13 18:40 WBC RBC Hgb Hct MCV MCH MCHC RDW Std Deviation RDW Coeff of David Plt Count MPV Immature Gran % (Auto) Neut % (Auto) Lymph % (Auto) [place] % (Auto) Eos % (Auto) Baso % (Auto) Absolute Neuts (auto) Absolute Lymphs (auto) Nucleated RBC % Differential Comment PT INR APTT Specimen Type Sample Site pH Bicarbonate Actual POC Total CO2 Base Excess O2 Saturation ABG pCO2 ABG pO2 Test O2 Delivery Device Liter Flow Blood Gas Notified Whom Blood Gas Notified Time Sodium Potassium Chloride Carbon Dioxide Anion Gap BUN Creatinine Estim Creat Clear Calc Est GFR (MDRD) Af Amer Est GFR (MDRD) Non-Af BUN/Creatinine Ratio Glucose Lactic Acid Calcium Total Bilirubin AST ALT Alkaline Phosphatase Total Creatine Kinase 140 B-Natriuretic Peptide Total Protein Albumin Globulin Albumin/Globulin Ratio Triglycerides 120 Urine Color Yellow Urine Clarity Clear Urine pH 6.0 Ur Specific Malcolm 1.020 Urine Protein 100 H Urine Glucose (UA) Normal Urine Ketones 5 H Urine Occult Blood 150 H Urine Nitrite Negative Urine Bilirubin Negative Urine Urobilinogen 1 H Ur Leukocyte Esterase 25 H Urine RBC 0-5 SEEN Urine WBC 0-5 SEEN Ur Squamous Epith Cells 0 SEEN Urine Bacteria RARE Fine Granular Casts 0-5 SEEN Urine Mucus RARE COVID-19 (JESSICA) Pending 07/20/19 07/20/19 07/21/19 04:30 04:30 04:30 WBC 14.9 H 7.8 RBC 4.90 4.33 L Hgb 14.8 13.1 Hct 42.3 37.6 L MCV 86.3 86.8 MCH 30.2 30.3 MCHC 35.0 34.8 RDW Std Deviation 39.7 40.0 RDW Coeff of David 12.5 12.6 Plt Count 199 218 MPV 12.2 H 11.8 Immature Gran % (Auto) 0.800 0.900 Neut % (Auto) 86.3 H 74.1 H Lymph % (Auto) 7.5 L 15.3 L [place] % (Auto) 5.3 9.1 Eos % (Auto) 0.0 0.3 Baso % (Auto) 0.1 0.3 Absolute Neuts (auto) 12.8 H 5.8 Absolute Lymphs (auto) 1.12 1.19 Nucleated RBC % 0 0 Differential Comment SCANNED PT INR APTT Specimen Type Sample Site pH Bicarbonate Actual POC Total CO2 Base Excess O2 Saturation ABG pCO2 ABG pO2 Test O2 Delivery Device Liter Flow Blood Gas Notified Whom Blood Gas Notified Time Sodium 136 Potassium 4.5 Chloride 102 Carbon Dioxide 26.0 Anion Gap 8 BUN 28 H Creatinine 1.33 H Estim Creat Clear Calc 60.22 Est GFR (MDRD) Af Amer 70 Est GFR (MDRD) Non-Af 58 L BUN/Creatinine Ratio 21.1 H Glucose 150 H Lactic Acid Calcium 8.6 Total Bilirubin 1.00 AST 39 H ALT 30 Alkaline Phosphatase 83 Total Creatine Kinase B-Natriuretic Peptide Total Protein 7.0 Albumin 2.8 L Globulin 4.2 Albumin/Globulin Ratio 0.7 L Triglycerides Urine Color Urine Clarity Urine pH Ur Specific Malcolm Urine Protein Urine Glucose (UA) Urine Ketones Urine Occult Blood Urine Nitrite Urine Bilirubin Urine Urobilinogen Ur Leukocyte Esterase Urine RBC Urine WBC Ur Squamous Epith Cells Urine Bacteria Fine Granular Casts Urine Mucus COVID-19 (JESSICA) 07/21/19 04:30 WBC RBC Hgb Hct MCV MCH MCHC RDW Std Deviation RDW Coeff of David Plt Count MPV Immature Gran % (Auto) Neut % (Auto) Lymph % (Auto) [place] % (Auto) Eos % (Auto) Baso % (Auto) Absolute Neuts (auto) Absolute Lymphs (auto) Nucleated RBC % Differential Comment PT INR APTT Specimen Type Sample Site pH Bicarbonate Actual POC Total CO2 Base Excess O2 Saturation ABG pCO2 ABG pO2 Test O2 Delivery Device Liter Flow Blood Gas Notified Whom Blood Gas Notified Time Sodium 137 Potassium 3.9 Chloride 103 Carbon Dioxide 27.0 Anion Gap 7 BUN 30 H Creatinine 1.25 Estim Creat Clear Calc 64.08 Est GFR (MDRD) Af Amer 75 Est GFR (MDRD) Non-Af 62 BUN/Creatinine Ratio 24.0 H Glucose 138 H Lactic Acid Calcium 8.5 Total Bilirubin 1.30 H AST 51 H ALT 42 Alkaline Phosphatase 104 Total Creatine Kinase B-Natriuretic Peptide Total Protein 6.8 Albumin 2.5 L Globulin 4.3 H Albumin/Globulin Ratio 0.6 L Triglycerides Urine Color Urine Clarity Urine pH Ur Specific Malcolm Urine Protein Urine Glucose (UA) Urine Ketones Urine Occult Blood Urine Nitrite Urine Bilirubin Urine Urobilinogen Ur Leukocyte Esterase Urine RBC Urine WBC Ur Squamous Epith Cells Urine Bacteria Fine Granular Casts Urine Mucus COVID-19 (JESSICA) Microbiology 07/20/19 16:34 Mucosa - Nasopharyngeal Respiratory Panel (PCR) - Final Medical Necessity - Tobacco Use Smoking Status: Never smoker Assessment/Plan All Active Problems (Last Reviewed 04/01/17 @ 13:34 by Leandra Duarte) Suspected 2019 novel coronavirus infection (Acute) ARDS (adult respiratory distress syndrome) (Acute) Sepsis (Acute) Acute respiratory failure with hypoxia (Acute) Bilateral pneumonia (Acute) RECOMMENDATIONS: 1. Attempt to wean PEEP later today 2. Agree with empiric antibiotics 3. Low tidal volume, high PEEP ventilatory strategy 4. Limit fluids. Continue tube feeds 5. Possibly add Plaquenil and azithromycin if condition deteriorates 6. Initiate PT/OT therapy IMPRESSIONS: 1. Acute hypoxic respiratory failure secondary to ARDS secondary to possible novel COVID 19 Patient with worsening infiltrates bilaterally. Patient does have a significant leukocytosis, so concomitant bacterial infection cannot be excluded. Agree with empiric antibiotics at this time. Patient has slightly improved since presentation. Infectious disease consulted. Cultures are currently pending. Patient does not have a history of smoking or underlying lung disease, so no steroids would be indicated. Continue to attempt a low tidal volume, high PEEP ventilatory strategy. Await COVID 19 testing results. Possibly attempt to wean PEEP later today 2. Limited history/chronic pain/obesity/prophylaxis Complicates care, management, recovery and prognosis. Patient does appear to be improving with respiratory stabilization. On fentanyl therapy, so Mobic is likely not indicated. Tube feeds are at goal. DVT and GI prophylaxis will be ordered. Will initiate PT/OT therapy TIME: 32 minutes of critical care time spent addressing patient's acute hypoxic respiratory failure, ARDS, prophylaxis, review of all data and collaboration with care team (6 AM to 8 AM) 9xxxx: [id number] Critical care first hour
[2019-07-21] MEDS: Famotidine 20 MG Tablet GT ×2 (08:51→21:38)
--- NOTE | 2019-07-21 10:50 | CASEMGMT ---
MELISA IBRAHIM ASSESSMENT COVID-19 suspected. Test sent and is pending. Pt in isolation precautions and is intubated. Call placed to pt's son, Christiano Herrmann. Introduced self and role of MELISA IBRAHIM. The following information obtained from Christiano at this time. PCP: Dr Hernandez Specialists: States is not sure but does not think pt sees any specialists. Preferred Pharmacy: [facility] Retail Insurance: [employer] is listed on demographics. Christiano states he is pretty sure this is correct, but not certain. Prescription Benefit: He is not sure, but thinks so. Prescription card on pt's file shows prescription benefits. Living Will/HPOA: Christiano is not sure if pt has completed these. LNOK: 2 sons: Christiano Herrmann who lives in [place] and Hector Herrmann who lives in [place]. Living Arrangements: Lives alone in ranch-style home w/5 steps to main floor from garage. Christiano states once on main floor, his home is very easy to navigate. Pt was very independent with all ADL's and IADL's prior to illness/hospitalization. Christiano states pt has plenty of local friends that could assist if pt needs once he is discharged. Christiano also states he may be able to come back to [place] to assist his dad if he can and will try to coordinate things for him as needed. Transportation: Pt drove prior to illness. DME: Per Christiano, pt has no DME. CM to follow for any DME needs @ discharge. HHC/SNF: No history of either. Anticipate pt will be able to return home once medically ready to be discharged. CM to follow for home oxygen needs and any further discharge planning/needs. Son states no concerns/needs at this time. Advised him to ask for CM if any further questions/concerns/needs arise. Voices understanding. PLAN: TBD Anticipate pt will be able to return home. CM/SW to follow pt's progress and assist with discharge planning as needed. Mariana BOND RN, CM
--- NOTE | 2019-07-21 14:02 | PCM.PN.ID ---
Patient Problems: Active and Suspected Problems (Last Reviewed 04/01/17 @ 13:34 by Leandra Duarte) Suspected 2019 novel coronavirus infection (Acute) ARDS (adult respiratory distress syndrome) (Acute) Sepsis (Acute) Acute respiratory failure with hypoxia (Acute) Bilateral pneumonia (Acute) Subjective: Feeling ok, still fever, no abd pain, some dyspnea with suctioning - Physical Exam Vitals/I&O's: Vital Signs Temp Pulse Resp BP Pulse Ox 100.0 F H 70 18 138/81 H 96 07/21/19 12:00 07/21/19 13:00 07/21/19 13:00 07/21/19 13:00 07/21/19 13:00 Oxygen Flow Rate (L/min) 15 Oxygen Delivery Method Mechanical Ventilator Weight: 97.3 kg Body Mass Index (BMI) 31.1 Intake and Output for Last 24 Hours 07/19/19 07/20/19 07/21/19 23:59 23:59 23:59 Intake Total 1124.84 / 1159.74 1257.41 / 1677.41 1126.39 / 1126.39 Output Total 850 / 1300 800 / 800 Balance 1124.84 / 909.74 407.41 / 377.41 326.39 / 326.39 General: Alert, Cooperative, No apparent distress Lungs: Diminished Cardiovascular: Regular rate, Regular Rhythm Abdomen: Soft, Non Tender, Non-Distended Skin: No rashes Microbiology Past 72 Hours 07/19/19 18:13 Urine, Clean Catch Urine Culture - Preliminary Culture exhibits no growth. 07/20/19 16:34 Mucosa - Nasopharyngeal Respiratory Panel (PCR) - Final Laboratory Results 07/19/19 18:40: COVID-19 (JESSICA) Pending 07/21/19 04:30: WBC 7.8, RBC 4.33 L, Hgb 13.1, Hct 37.6 L, MCV 86.8, MCH 30.3, MCHC 34.8, RDW Std Deviation 40.0, RDW Coeff of David 12.6, Plt Count 218, MPV 11.8, Immature Gran % (Auto) 0.900, Neut % (Auto) 74.1 H, Lymph % (Auto) 15.3 L, [place] % (Auto) 9.1, Eos % (Auto) 0.3, Baso % (Auto) 0.3, Absolute Neuts (auto) 5.8, Absolute Lymphs (auto) 1.19, Nucleated RBC % 0 07/21/19 04:30: Sodium 137, Potassium 3.9, Chloride 103, Carbon Dioxide 27.0, Anion Gap 7, BUN 30 H, Creatinine 1.25, Estim Creat Clear Calc 64.08, Est GFR (MDRD) Af Amer 75, Est GFR (MDRD) Non-Af 62, BUN/Creatinine Ratio 24.0 H, Glucose 138 H, Calcium 8.5, Total Bilirubin 1.30 H, AST 51 H, ALT 42, Alkaline Phosphatase 104, Total Protein 6.8, Albumin 2.5 L, Globulin 4.3 H, Albumin/Globulin Ratio 0.6 L Current Medications Acetaminophen (Tylenol Liquid) 650 mg NG Q6H PRN PRN PRN Reason: Pain Score 1-10/Temp > 100.7 F Last Admin: 07/21/19 04:17 Dose: 650 mg Documented by: Famotidine (Pepcid) 20 mg GT BID [facility] Last Admin: 07/21/19 08:51 Dose: 20 mg Documented by: Heparin Sodium (Porcine) (Heparin Na) 5,000 unit SC Q8 [facility] Last Admin: 07/21/19 05:58 Dose: 5,000 unit Documented by: Hydroxychloroquine Sulfate (Plaquenil) 400 mg PO Q12H [facility] Stop: 07/22/19 02:01 Hydroxychloroquine Sulfate (Plaquenil) 200 mg PO BIDCM [facility] Fentanyl () 100 mls @ 2.5 mls/hr IV UD [facility]; Protocol Last Titration: 07/21/19 11:00 Dose: 50 mcg/hr, 5 mls/hr Documented by: Propofol (Diprivan) 1,000 mg in 100 mls @ 6.024 mls/hr CONT INF .Q12H [facility]; Protocol Last Titration: 07/21/19 11:00 Dose: 10 mcg/kg/min, 6 mls/hr Documented by: Piperacillin Sod/Tazobactam (Sod 3.375 gm/ Sodium Chloride) 50 mls @ 12.5 mls/hr IV Q8 [facility] Last Infusion: 07/21/19 11:10 Dose: Infused Documented by: Sodium Chloride () 250 mls @ 15 mls/hr IV .[id number] PRN PRN Reason: Saline Flush Last Admin: 07/21/19 05:58 Dose: 15 mls/hr Documented by: Sodium Chloride () 250 mls @ 15 mls/hr IV .[id number] PRN PRN Reason: Additional IVPB Infusion Enteral Nutritional Formula (Vital Af 1.2 [place] Liquid) 1,000 mls @ 65 mls/hr GT .[id number] [facility]INO Last Admin: 07/21/19 05:09 Dose: Not Given Documented by: Azithromycin 500 mg/ Dextrose 255 mls @ 250 mls/hr IV Q24 [facility] Influenza Virus Vaccine Quadrival (Flucelvax /Fluzone ) 0.5 ml IM .ONCE ONE Stop: 07/22/19 10:01 Ondansetron HCl (Zofran) 4 mg IV Q8H PRN PRN PRN Reason: NAUSEA/VOMITING Sodium Chloride () 10 - 40 ml IV UD PRN PRN Reason: SALINE FLUSH Last Admin: 07/20/19 05:10 Dose: 10 ml Documented by: Medical Necessity - Tobacco Use Smoking Status: Never smoker Route of nutrition/ use of supplements: [] Nutritional Intake: [] IV Site: [] [place] Catheter: [] - Assessment/Plan Antibiotics: [] Assessment/Plan: [] Active and Suspected Problems (Last Reviewed 04/01/17 @ 13:34 by Leandra Duarte) Suspected 2019 novel coronavirus infection (Acute) ARDS (adult respiratory distress syndrome) (Acute) Sepsis (Acute) Acute respiratory failure with hypoxia (Acute) Bilateral pneumonia (Acute) Acute hypoxic resp failure with sepsis - covid pending. Wbc normal now, still having fever, O2 improved. On empiric zosyn. Resp pcr panel was neg. Will start empiric 5 day course of azithro/plaquenil due to high suspicion for COVID. Will follow
[2019-07-21] MEDS: fentaNYL drip 100 ML 5 MCG IV (15:00)
[2019-07-21] MEDS: Vital AF 1.2 Cal Liquid 1,000 ML 65 ML GT (16:00)
[2019-07-22] VITALS (34 sets, daily range): BP systolic 118–164; BP diastolic 66–116; PULSE 67–86; RESP 16–36; TEMP 38–39.4; O2SAT 89–98
[2019-07-22] MEDS: Acetaminophen 650 MG/20 ML UDC NG ×3 (00:13→19:08)
[2019-07-22] MEDS: Propofol 10MG/Ml 1,000 MG/100 ML Bottle 6 MG CONT INF (04:30)
[2019-07-22 05:04] LABS: Anion Gap 7 (5-15); BUN 26 mg/dL (7-18); BUN/Creat Ratio 28.2 RATIO (10-20); Calcium,Total 8.3 mg/dL (8.5-10.1); Chloride 106 mmol/L (98-107); Creatinine, Serum 0.92 mg/dL (0.70-1.30); EST Glomerular Filtration Rate 89 mL/min (>60); Est Glom Filt Rate - Afr Amer 107 mL/min (>60); Estimated Creatinine Clearance 87.06 ml/min; Glucose 172 mg/dL (74-106); Magnesium 2.3 mg/dL (1.6-2.6); Potassium 3.7 mmol/L (3.5-5.1); Sodium Level 138 mmol/L (136-145)
[2019-07-22] MEDS: Heparin Injection (Vial) 5,000 UNIT/ML VIAL 5000 UNIT SC (05:49)
[2019-07-22 05:57] LABS: Phosphorus 2.4 mg/dL (2.5-4.9)
[2019-07-22] MEDS: fentaNYL drip 100 ML 5 MCG IV (06:00)
--- NOTE | 2019-07-22 08:00 | PCM.PN.INT ---
Subjective: Patient did well overnight. Patient continues to have some desaturation associated with suctioning. Fever curve continues to improve. Patient was able to work with physical therapy yesterday. Patient is tolerating tube feeds. General: Alert, Cooperative, No apparent distress, - - Answers with writing appropriately. HEENT: Atraumatic, PERRLA, EOMI, Normocephalic, - - No scleral icterus or injection noted Oral: Moist Mucosa, No Gingival or Mucosal Lesions/ Ulcerations Neck: Supple, No JVD, No Nodes, Trachea Midline Lungs: No rhonchi, No wheeze, No rales, Diminished, - - Symmetric expansion. No dullness to percussion. Cardiovascular: Regular rate, Regular Rhythm, Normal S1, Normal S2, No murmurs, No rub noted, No Gallop Abdomen: Bowel Sounds Present, Soft, Non Tender, Distended - Slightly Extremities: No clubbing, No cyanosis, No edema, Capillary Refill Less than 3 Seconds Skin: No rashes, No breakdown Musculoskeletal: No Tenderness to Palpation of Joints or Extremities Lymphatic: No Cervical, Supraclavicular, or Inguinal Adenopathy Neurological: Cranial nerves II-XII grossly intact, Neuro grossly intact, Motor Exam 5/5 strength throughout Psych/Mental Status: Normal Affect, Appropriate Vital Signs Temp Pulse Resp BP Pulse Ox 38.6 C H 68 34 H 134/116 H 94 07/22/19 06:00 07/22/19 07:00 07/22/19 07:00 07/22/19 07:00 07/22/19 07:00 Oxygen Flow Rate (L/min) 40 Oxygen Delivery Method Mechanical Ventilator Weight: 98 kg Body Mass Index (BMI) 31.1 Intake and Output for Last 24 Hours 07/20/19 07/21/19 07/22/19 23:59 23:59 23:59 Intake Total 1257.41 / 1677.41 2886.81 / 2897.81 524 / 524 Output Total 850 / 1300 1700 / 1700 300 / 300 Balance 407.41 / 377.41 1186.81 / 1197.81 224 / 224 Labs (Last 48 Hours) 07/19/19 07/20/19 07/20/19 18:40 04:30 04:30 WBC 14.9 H RBC 4.90 Hgb 14.8 Hct 42.3 MCV 86.3 MCH 30.2 MCHC 35.0 RDW Std Deviation 39.7 RDW Coeff of David 12.5 Plt Count 199 MPV 12.2 H Immature Gran % (Auto) 0.800 Neut % (Auto) 86.3 H Lymph % (Auto) 7.5 L [place] % (Auto) 5.3 Eos % (Auto) 0.0 Baso % (Auto) 0.1 Absolute Neuts (auto) 12.8 H Absolute Lymphs (auto) 1.12 Nucleated RBC % 0 Differential Comment SCANNED Sodium 136 Potassium 4.5 Chloride 102 Carbon Dioxide 26.0 Anion Gap 8 BUN 28 H Creatinine 1.33 H Estim Creat Clear Calc 60.22 Est GFR (MDRD) Af Amer 70 Est GFR (MDRD) Non-Af 58 L BUN/Creatinine Ratio 21.1 H Glucose 150 H Calcium 8.6 Phosphorus Magnesium Total Bilirubin 1.00 AST 39 H ALT 30 Alkaline Phosphatase 83 Total Protein 7.0 Albumin 2.8 L Globulin 4.2 Albumin/Globulin Ratio 0.7 L COVID-19 (JESSICA) 07/21/19 07/21/19 07/22/19 04:30 04:30 04:20 WBC 7.8 RBC 4.33 L Hgb 13.1 Hct 37.6 L MCV 86.8 MCH 30.3 MCHC 34.8 RDW Std Deviation 40.0 RDW Coeff of David 12.6 Plt Count 218 MPV 11.8 Immature Gran % (Auto) 0.900 Neut % (Auto) 74.1 H Lymph % (Auto) 15.3 L [place] % (Auto) 9.1 Eos % (Auto) 0.3 Baso % (Auto) 0.3 Absolute Neuts (auto) 5.8 Absolute Lymphs (auto) 1.19 Nucleated RBC % 0 Differential Comment Sodium 137 138 Potassium 3.9 3.7 Chloride 103 106 Carbon Dioxide 27.0 25.0 Anion Gap 7 7 BUN 30 H 26 H Creatinine 1.25 0.92 Estim Creat Clear Calc 64.08 87.06 Est GFR (MDRD) Af Amer 75 107 Est GFR (MDRD) Non-Af 62 89 BUN/Creatinine Ratio 24.0 H 28.2 H Glucose 138 H 172 H Calcium 8.5 8.3 L Phosphorus Magnesium 2.3 Total Bilirubin 1.30 H AST 51 H ALT 42 Alkaline Phosphatase 104 Total Protein 6.8 Albumin 2.5 L Globulin 4.3 H Albumin/Globulin Ratio 0.6 L COVID-19 (JESSICA) 07/22/19 04:20 WBC RBC Hgb Hct MCV MCH MCHC RDW Std Deviation RDW Coeff of David Plt Count MPV Immature Gran % (Auto) Neut % (Auto) Lymph % (Auto) [place] % (Auto) Eos % (Auto) Baso % (Auto) Absolute Neuts (auto) Absolute Lymphs (auto) Nucleated RBC % Differential Comment Sodium Potassium Chloride Carbon Dioxide Anion Gap BUN Creatinine Estim Creat Clear Calc Est GFR (MDRD) Af Amer Est GFR (MDRD) Non-Af BUN/Creatinine Ratio Glucose Calcium Phosphorus 2.4 L Magnesium Total Bilirubin AST ALT Alkaline Phosphatase Total Protein Albumin Globulin Albumin/Globulin Ratio COVID-19 (JESSICA) Microbiology 07/19/19 18:13 Urine, Clean Catch Urine Culture - Final Culture exhibits no growth. 07/20/19 16:34 Mucosa - Nasopharyngeal Respiratory Panel (PCR) - Final Medical Necessity - Tobacco Use Smoking Status: Never smoker Assessment/Plan All Active Problems (Last Reviewed 04/01/17 @ 13:34 by Leandra Duarte) Suspected 2019 novel coronavirus infection (Acute) ARDS (adult respiratory distress syndrome) (Acute) Sepsis (Acute) Acute respiratory failure with hypoxia (Acute) Bilateral pneumonia (Acute) RECOMMENDATIONS: 1. Attempt to wean PEEP today 2. Transition to ceftriaxone for dosing convenience 3. Low tidal volume, high PEEP ventilatory strategy 4. Limit fluids. Continue tube feeds. Possible Lasix tomorrow 5. Add stop date to Plaquenil and azithromycin 6. Continue PT/OT therapy IMPRESSIONS: 1. Acute hypoxic respiratory failure secondary to ARDS secondary to novel COVID 19 Patient with worsening infiltrates bilaterally on presentation. Patient does have a significant leukocytosis, so concomitant bacterial infection cannot be excluded. We will transition antibiotics to help with dosing frequency. Patient has improved since presentation. Infectious disease consulted. Cultures are currently pending. Patient does not have a history of smoking or underlying lung disease, so no steroids would be indicated. Continue to attempt a low tidal volume, high PEEP ventilatory strategy. Possibly attempt to wean PEEP later today. Possibly start spontaneous breathing trials Wednesday 2. Limited history/chronic pain/obesity/prophylaxis Complicates care, management, recovery and prognosis. Patient does appear to be improving with respiratory stabilization. On fentanyl therapy, so Mobic is likely not indicated. Tube feeds are at goal. DVT and GI prophylaxis will be ordered. Will continue PT/OT therapy TIME: 33 minutes of critical care time spent addressing patient's acute hypoxic respiratory failure, ARDS, prophylaxis, review of all data and collaboration with care team (6 AM to 7 AM) [phone]: [id number] Critical care first hour
--- NOTE | 2019-07-22 08:21 | PN_ITS ---
Patient Problems: Active and Suspected Problems (Last Reviewed 04/01/17 @ 13:34 by Leandra Duarte) COVID-19 (Acute) ARDS (adult respiratory distress syndrome) (Acute) Sepsis (Acute) Acute respiratory failure with hypoxia (Acute) Bilateral pneumonia (Acute) Subjective: Chief complaint: Follow-up after admission for sepsis, acute bilateral viral pneumonia due to COVID-19 and acute hypoxic respiratory failure. Patient seen and examined. No acute events overnight. Nursing staff reported that patient continued to have desaturation upon suctioning. Still having spikes of fever. He is alert and awake, following commands appropriately. He is tolerating tube feeds. He is febrile, blood pressure and heart rate are maintained, on mechanical ventilation. - Physical Exam Vitals/I&O's: Vital Signs Temp Pulse Resp BP Pulse Ox 101.5 F H 68 34 H 134/116 H 94 07/22/19 06:00 07/22/19 07:00 07/22/19 07:00 07/22/19 07:00 07/22/19 07:00 Oxygen Flow Rate (L/min) 40 Oxygen Delivery Method Mechanical Ventilator Weight: 216 lb 0.848 oz Body Mass Index (BMI) 31.1 Intake and Output for Last 24 Hours 07/20/19 07/21/19 07/22/19 23:59 23:59 23:59 Intake Total 1257.41 / 1677.41 2886.81 / 2897.81 524 / 524 Output Total 850 / 1300 1700 / 1700 300 / 300 Balance 407.41 / 377.41 1186.81 / 1197.81 224 / 224 General: Alert, Cooperative, No apparent distress, - - Following commands appropriately. HEENT: Atraumatic, PERRLA, EOMI, Normocephalic Oral: Moist Mucosa, No Gingival or Mucosal Lesions/ Ulcerations Neck: Supple, No JVD, Negative Carotid Bruits, Trachea Midline, Thyroid Normal Size and Texture Lungs: Clear to auscultation, No rhonchi, No wheeze, No rales, Diminished Cardiovascular: Regular rate, Regular Rhythm, Normal S1, Normal S2, PMI Normal Abdomen: Bowel Sounds Present, Soft, Non Tender, Non-Distended, No Hepato- splenomegaly Extremities: No clubbing, No cyanosis, No edema Skin: No rashes, No breakdown Lymphatic: No Cervical, Supraclavicular, or Inguinal Adenopathy Neurological: Cranial nerves II-XII grossly intact, Neuro grossly intact Psych/Mental Status: Normal Affect, Appropriate Microbiology Past 72 Hours 07/19/19 18:13 Urine, Clean Catch Urine Culture - Final Culture exhibits no growth. 07/20/19 16:34 Mucosa - Nasopharyngeal Respiratory Panel (PCR) - Final Laboratory Results 07/19/19 18:40: COVID-19 (JESSICA) 07/22/19 04:20: Sodium 138, Potassium 3.7, Chloride 106, Carbon Dioxide 25.0, Anion Gap 7, BUN 26 H, Creatinine 0.92, Estim Creat Clear Calc 87.06, Est GFR (MDRD) Af Amer 107, Est GFR (MDRD) Non-Af 89, BUN/Creatinine Ratio 28.2 H, Glucose 172 H, Calcium 8.3 L, Magnesium 2.3 07/22/19 04:20: Phosphorus 2.4 L Current Medications Acetaminophen (Tylenol Liquid) 650 mg NG Q6H PRN PRN PRN Reason: Pain Score 1-10/Temp > 100.7 F Last Admin: 07/22/19 05:49 Dose: 650 mg Documented by: Bisacodyl (Dulcolax) 10 mg RECTAL X1 ONE Stop: 07/22/19 10:01 Hydroxychloroquine Sulfate 200 mg/ Compound Med 4 ml/Compound Med 4 ml mg GT BID [facility] Stop: 07/25/19 22:01 Enoxaparin Sodium (Lovenox) 40 mg SC DAILY [facility] Famotidine (Pepcid) 40 mg GT DAILY [facility] Fentanyl () 100 mls @ 2.5 mls/hr IV UD [facility]; Protocol Last Titration: 07/22/19 07:00 Dose: 50 mcg/hr, 5 mls/hr Documented by: Propofol (Diprivan) 1,000 mg in 100 mls @ 6.024 mls/hr CONT INF .Q12H [facility]; Protocol Last Titration: 07/22/19 07:00 Dose: 10 mcg/kg/min, 6 mls/hr Documented by: Sodium Chloride () 250 mls @ 15 mls/hr IV .[id number] PRN PRN Reason: Saline Flush Last Infusion: 07/21/19 21:05 Dose: 0 mls/hr Documented by: Sodium Chloride () 250 mls @ 15 mls/hr IV .[id number] PRN PRN Reason: Additional IVPB Infusion Enteral Nutritional Formula (Vital Af 1.2 [place] Liquid) 1,000 mls @ 65 mls/hr GT .[id number] [facility] Last Admin: 07/21/19 16:00 Dose: 65 mls/hr Documented by: Azithromycin 500 mg/ Dextrose 255 mls @ 250 mls/hr IV Q24 [facility] Stop: 07/25/19 11:02 Last Infusion: 07/21/19 17:41 Dose: Infused Documented by: Ceftriaxone Sodium 2 gm/ (Sodium Chloride) 50 mls @ 100 mls/hr IV Q24 [facility] Stop: 07/25/19 10:29 Ondansetron HCl (Zofran) 4 mg IV Q8H PRN PRN PRN Reason: NAUSEA/VOMITING Senna/Docusate Sodium (Senokot-S, Arlette-Colace) 2 tablet GT BID [facility] Sodium Chloride () 10 - 40 ml IV UD PRN PRN Reason: SALINE FLUSH Last Admin: 07/20/19 05:10 Dose: 10 ml Documented by: Medical Necessity - Tobacco Use Smoking Status: Never smoker Assessment/Plan All Active Problems (Last Reviewed 04/01/17 @ 13:34 by Leandra Duarte) COVID-19 (Acute) ARDS (adult respiratory distress syndrome) (Acute) Sepsis (Acute) Acute respiratory failure with hypoxia (Acute) Bilateral pneumonia (Acute) This is a 63 years old male patient presented to the emergency room because of worsening shortness of breath with cough and fever, found to have bilateral multifocal pulmonary opacities likely due to viral pneumonia and suspected COVID-19, complicated by acute hypoxic respiratory failure. #1 acute hypoxic respiratory failure: Secondary to #2. He is on IV Rocephin and Zithromax as well as hydroxychloroquine. IV Zosyn discontinued. Patient remained on mechanical ventilation, PEEP of 12 and FiO2 of 40%. Hemodynamically stable, still having spikes of fever. Respiratory panel for viruses were negative. Urine culture showed no growth. Blood cultures pending. Supervisor [employer] is on the case. Plan to continue same treatment, plan to wean off PEEP. #2 acute bilateral probably viral pneumonia/sepsis/COVID-19: COVID-19 testing came back positive. IV Zosyn discontinued. He is on IV Rocephin, Zithromax and hydroxychloroquine. Continues to have spikes of fever, leukocytosis resolved. Lactic acid was normal. Urine culture showed no growth. Blood cultures pending. Plan as above. #3 DVT prophylaxis: Subcu heparin. This note was generated with Say[employer]ation software. It may contain incorrect words, spelling, and punctuation that were not noted in checking the note before signing. Inpatient E&M: 12418 Subs Hosp L2
[2019-07-22] MEDS: Vital AF 1.2 Cal Liquid 1,000 ML 65 ML GT (09:42)
--- NOTE | 2019-07-22 09:49 | CM.UR ---
Participated in interdisciplinary rounds this am. Remains intubated and continuing to work on weaning. results came back positive for COVID-19. Goal for this vet is to return home. Case management will continue to follow patient for dc planning. Claudia Alexandre RN, CCM.
[2019-07-22] MEDS: Famotidine 20 MG Tablet 40 MG GT (11:30)
[2019-07-22] MEDS: Enoxaparin 40 MG/0.4 ML Syringe SC (11:30)
[2019-07-22] MEDS: Senna/Docusate Sodium 1 Tablet 2 TABLET GT ×2 (11:30→21:43)
[2019-07-22] MEDS: Propofol 10MG/Ml 1,000 MG/100 ML Bottle 9 MG CONT INF (18:00)
[2019-07-22] MEDS: fentaNYL drip 100 ML 7.5 MCG IV (21:31)
[2019-07-22] MEDS: Chlorhexidine 15 ML PO (21:38)
[2019-07-22] MEDS: Propofol 10MG/Ml 1,000 MG/100 ML Bottle 15.1 MG CONT INF (22:54)
[2019-07-23] VITALS (38 sets, daily range): BP systolic 115–156; BP diastolic 65–98; PULSE 64–88; RESP 16–38; TEMP 37.8–39.2; O2SAT 87–98
[2019-07-23] MEDS: Acetaminophen 650 MG/20 ML UDC NG ×2 (00:50→20:05)
[2019-07-23] MEDS: Vital AF 1.2 Cal Liquid 1,000 ML 65 ML GT ×2 (00:51→18:47)
[2019-07-23] MEDS: Propofol 10MG/Ml 1,000 MG/100 ML Bottle 15.1 MG CONT INF ×4 (05:15→20:00)
[2019-07-23 06:07] LABS: Absolute Lymphocyte Count 1.32 X10^3/uL (0.83-4.51); Absolute Neutrophil Count 8.9 X10^3/uL (2.0-7.7); Basophil# 0.06 X10^3/uL; Basophil% 0.5 % (0-1); Eosinophil# 0.26 X10^3/uL; Eosinophils% 2.3 % (0-5); Hematocrit 36.6 % (40-54); Hemoglobin 12.4 g/dL (13.0-16.5); Lymphocyte # 1.32 X10^3/ul (4.0); Lymphocyte % 11.4 % (19-41); Mean Corp Hgb Conc 33.9 g/dL (32-36); Mean Corpuscular Hgb 29.7 pg (27.0-32.0); Mean Corpuscular Volume 87.6 fL (80-94); Mean Platelet Vol. 12.3 fl (6.2-12.0); Monocyte# 0.92 X10^3/uL; NRBC Flagged by Analyzer 0 % (0-5); Neutrophil # 8.85 X10^3/uL (2.7-7.7); Neutrophil % 76.6 % (47-70); Platelet Count 238 K/mm3 (150-450); RBC Distribution Width CV 12.7 % (11.6-14.6); RBC Distribution Width SD 40.3 fl (35.1-43.9); Red Blood Count 4.18 M/mm3 (4.6-6.2); White Blood Count 11.6 K/mm3 (4.4-11.0)
[2019-07-23 06:18] LABS: Anion Gap 7 (5-15); BUN 27 mg/dL (7-18); BUN/Creat Ratio 28.3 RATIO (10-20); Calcium,Total 8.3 mg/dL (8.5-10.1); Chloride 107 mmol/L (98-107); Creatinine, Serum 0.96 mg/dL (0.70-1.30); EST Glomerular Filtration Rate 85 mL/min (>60); Est Glom Filt Rate - Afr Amer 103 mL/min (>60); Estimated Creatinine Clearance 83.43 ml/min; Glucose 173 mg/dL (74-106); Potassium 3.5 mmol/L (3.5-5.1); Sodium Level 139 mmol/L (136-145)
[2019-07-23] MEDS: Albuterol 2.5 MG/3 ML VIAL.NEB. INHALATION ×5 (07:26→23:56)
--- NOTE | 2019-07-23 07:56 | PCM.PN.INT ---
Subjective: Patient did well overnight. Patient was tachypneic this morning, but was found to have an interruption in his sedation. Patient did have significant fever overnight, but tolerated this well. Patient has been able to be weaned to a PEEP of 8, but oxygenation remains marginal on 45% FiO2. No BM noted overnight. Patient was given an aerosol therapy for wheezing. General: Alert, Cooperative, - - Tachypnea noted. Obese. HEENT: Atraumatic, PERRLA, EOMI, Normocephalic, - - No scleral icterus or injection noted Oral: Moist Mucosa, No Gingival or Mucosal Lesions/ Ulcerations Neck: Supple, No JVD, No Nodes, Trachea Midline Lungs: No rhonchi, No rales, Diminished, Wheezes, - - Symmetric expansion Cardiovascular: Regular rate, Regular Rhythm, Normal S1, Normal S2, No murmurs, No rub noted, No Gallop Abdomen: Bowel Sounds Present, Soft, Non Tender, Non-Distended Extremities: No clubbing, No cyanosis, No edema, Capillary Refill Less than 3 Seconds Skin: No rashes, No breakdown Musculoskeletal: No Tenderness to Palpation of Joints or Extremities Lymphatic: No Cervical, Supraclavicular, or Inguinal Adenopathy Neurological: Cranial nerves II-XII grossly intact, Neuro grossly intact, Motor Exam 5/5 strength throughout Psych/Mental Status: Normal Affect, Appropriate Vital Signs Temp Pulse Resp BP Pulse Ox 38.2 C H 85 37 H 156/83 H 92 07/23/19 07:00 07/23/19 07:26 07/23/19 07:26 07/23/19 07:00 07/23/19 07:26 Oxygen Flow Rate (L/min) 45 Oxygen Delivery Method Mechanical Ventilator Weight: 97.3 kg Body Mass Index (BMI) 31.1 Intake and Output for Last 24 Hours 07/21/19 07/22/19 07/23/19 23:59 23:59 23:59 Intake Total 2886.81 / 2897.81 1967.40 / 2446.00 1110.81 / 1110.81 Output Total 1700 / 1700 1350 / 1350 Balance 1186.81 / 1197.81 617.40 / 1096.00 1110.81 / 1110.81 Labs (Last 48 Hours) 07/19/19 07/22/19 07/22/19 18:40 04:20 04:20 WBC RBC Hgb Hct MCV MCH MCHC RDW Std Deviation RDW Coeff of David Plt Count MPV Immature Gran % (Auto) Neut % (Auto) Lymph % (Auto) [place] % (Auto) Eos % (Auto) Baso % (Auto) Absolute Neuts (auto) Absolute Lymphs (auto) Nucleated RBC % Sodium 138 Potassium 3.7 Chloride 106 Carbon Dioxide 25.0 Anion Gap 7 BUN 26 H Creatinine 0.92 Estim Creat Clear Calc 87.06 Est GFR (MDRD) Af Amer 107 Est GFR (MDRD) Non-Af 89 BUN/Creatinine Ratio 28.2 H Glucose 172 H Calcium 8.3 L Phosphorus 2.4 L Magnesium 2.3 COVID-19 (JESSICA) 07/23/19 07/23/19 05:20 05:20 WBC 11.6 H RBC 4.18 L Hgb 12.4 L Hct 36.6 L MCV 87.6 MCH 29.7 MCHC 33.9 RDW Std Deviation 40.3 RDW Coeff of David 12.7 Plt Count 238 MPV 12.3 H Immature Gran % (Auto) 1.200 H Neut % (Auto) 76.6 H Lymph % (Auto) 11.4 L [place] % (Auto) 8.0 Eos % (Auto) 2.3 Baso % (Auto) 0.5 Absolute Neuts (auto) 8.9 H Absolute Lymphs (auto) 1.32 Nucleated RBC % 0 Sodium 139 Potassium 3.5 Chloride 107 Carbon Dioxide 25.0 Anion Gap 7 BUN 27 H Creatinine 0.96 Estim Creat Clear Calc 83.43 Est GFR (MDRD) Af Amer 103 Est GFR (MDRD) Non-Af 85 BUN/Creatinine Ratio 28.3 H Glucose 173 H Calcium 8.3 L Phosphorus Magnesium COVID-19 (JESSICA) Microbiology 07/19/19 16:06 Blood Culture (Wb) - Anticubital Right Blood Culture - Preliminary No growth in 48 hours. 07/19/19 16:15 Blood Culture (Wb) - Left Forearm Blood Culture - Preliminary No growth in 48 hours. 07/19/19 18:13 Urine, Clean Catch Urine Culture - Final Culture exhibits no growth. 07/20/19 16:34 Mucosa - Nasopharyngeal Respiratory Panel (PCR) - Final Medical Necessity - Tobacco Use Smoking Status: Never smoker Assessment/Plan All Active Problems (Last Reviewed 04/01/17 @ 13:34 by Leandra Duarte) COVID-19 (Acute) ARDS (adult respiratory distress syndrome) (Acute) Sepsis (Acute) Acute respiratory failure with hypoxia (Acute) Bilateral pneumonia (Acute) RECOMMENDATIONS: 1. Attempt to wean PEEP today 2. Transition to ceftriaxone for dosing convenience to complete 5 days of total antibiotics 3. Low tidal volume, high PEEP ventilatory strategy 4. Limit fluids. Continue tube feeds. Dose with Lasix 5. Add stop date to Plaquenil and azithromycin 6. Continue PT/OT therapy IMPRESSIONS: 1. Acute hypoxic respiratory failure secondary to ARDS secondary to novel COVID 19 Patient with worsening infiltrates bilaterally on presentation. Patient does have a significant leukocytosis, so concomitant bacterial infection cannot be excluded. We will treat with a total of 5 days of empiric antibiotics. Patient has improved since presentation. Infectious disease consulted. Cultures are currently pending. Patient does not have a history of smoking or underlying lung disease, so no steroids would be indicated. Continue to attempt a low tidal volume, high PEEP ventilatory strategy. Possibly attempt to wean PEEP later today. Possibly start spontaneous breathing trials Wednesday 2. Limited history/chronic pain/obesity/prophylaxis Complicates care, management, recovery and prognosis. Patient does appear to be improving with respiratory stabilization. On fentanyl therapy, so Mobic is likely not indicated. Tube feeds are at goal. DVT and GI prophylaxis will be ordered. Will continue PT/OT therapy TIME: 31 minutes of critical care time spent addressing patient's acute hypoxic respiratory failure, ARDS, prophylaxis, review of all data and collaboration with care team (6 AM to 7 AM) [phone]: [id number] Critical care first hour
[2019-07-23 08:16] LABS: Base Excess 1 mmol/L (-2 to +2); Bicarbonate 24.9 mmol/L (22-26); PO2 57 mmHG (75-100); SO2 91 % (95-99); Total Carbon Dioxide 26 mmol/L; pCO2 34.8 mmHg (35-45); pH 7.46 (7.35-7.45)
--- NOTE | 2019-07-23 08:30 | PN_ITS ---
Patient Problems: Active and Suspected Problems (Last Reviewed 04/01/17 @ 13:34 by Leandra Duarte) ARDS (adult respiratory distress syndrome) (Acute) Acute respiratory failure with hypoxia (Acute) Bilateral pneumonia (Acute) Subjective: Chief complaint: Follow-up after admission for sepsis, acute bilateral viral pneumonia due to COVID-19 and acute hypoxic respiratory failure. Patient seen and examined. This morning, patient was tachypneic and attributed to interruption in the sedation. He is alert and awake, follows commands appropriately. PEEP is down to 8 cmH2O. He continued to have spikes of fever, blood pressure and heart rate are maintained, on mechanical ventilation. - Physical Exam Vitals/I&O's: Vital Signs Temp Pulse Resp BP Pulse Ox 100.7 F H 85 37 H 156/83 H 92 07/23/19 07:00 07/23/19 07:26 07/23/19 07:26 07/23/19 07:00 07/23/19 07:26 Oxygen Flow Rate (L/min) 45 Oxygen Delivery Method Mechanical Ventilator Weight: 214 lb 8.156 oz Body Mass Index (BMI) 31.1 Intake and Output for Last 24 Hours 07/21/19 07/22/19 07/23/19 23:59 23:59 23:59 Intake Total 2886.81 / 2897.81 1967.40 / 2446.00 1110.81 / 1110.81 Output Total 1700 / 1700 1350 / 1350 Balance 1186.81 / 1197.81 617.40 / 1096.00 1110.81 / 1110.81 General: Alert, Cooperative, - - Dyspneic and tachypneic. Following commands. HEENT: Atraumatic, PERRLA, EOMI, Normocephalic Oral: Moist Mucosa, No Gingival or Mucosal Lesions/ Ulcerations Neck: Supple, No JVD, Negative Carotid Bruits, Trachea Midline, Thyroid Normal Size and Texture Lungs: No rhonchi, No rales, Diminished, Short of Breath, Wheezes, - - Decreased breath sounds bilateral, bilateral expiratory wheezes. Cardiovascular: Regular rate, Regular Rhythm, Normal S1, Normal S2, PMI Normal Abdomen: Bowel Sounds Present, Soft, Non Tender, Non-Distended, No Hepato- splenomegaly Extremities: No clubbing, No cyanosis, No edema Skin: No rashes, No breakdown Lymphatic: No Cervical, Supraclavicular, or Inguinal Adenopathy Neurological: Cranial nerves II-XII grossly intact, Neuro grossly intact Psych/Mental Status: Normal Affect, Appropriate Microbiology Past 72 Hours 07/19/19 16:06 Blood Culture (Wb) - Anticubital Right Blood Culture - Preliminary No growth in 48 hours. 07/19/19 16:15 Blood Culture (Wb) - Left Forearm Blood Culture - Preliminary No growth in 48 hours. 07/19/19 18:13 Urine, Clean Catch Urine Culture - Final Culture exhibits no growth. 07/20/19 16:34 Mucosa - Nasopharyngeal Respiratory Panel (PCR) - Final Laboratory Results 07/23/19 05:20: WBC 11.6 H, RBC 4.18 L, Hgb 12.4 L, Hct 36.6 L, MCV 87.6, MCH 29.7, MCHC 33.9, RDW Std Deviation 40.3, RDW Coeff of David 12.7, Plt Count 238, MPV 12.3 H, Immature Gran % (Auto) 1.200 H, Neut % (Auto) 76.6 H, Lymph % (Auto) 11.4 L, [place] % (Auto) 8.0, Eos % (Auto) 2.3, Baso % (Auto) 0.5, Absolute Neuts (auto) 8.9 H, Absolute Lymphs (auto) 1.32, Nucleated RBC % 0 07/23/19 05:20: Sodium 139, Potassium 3.5, Chloride 107, Carbon Dioxide 25.0, Anion Gap 7, BUN 27 H, Creatinine 0.96, Estim Creat Clear Calc 83.43, Est GFR (MDRD) Af Amer 103, Est GFR (MDRD) Non-Af 85, BUN/Creatinine Ratio 28.3 H, Glucose 173 H, Calcium 8.3 L 07/23/19 07:54: pH 7.46 H, Bicarbonate Actual 24.9, POC Total CO2 26, Base Excess 1, O2 Saturation 91 L, ABG pCO2 34.8 L, ABG pO2 57 L Current Medications Acetaminophen (Tylenol Liquid) 650 mg NG Q6H PRN PRN PRN Reason: Pain Score 1-10/Temp > 100.7 F Last Admin: 07/23/19 00:50 Dose: 650 mg Documented by: Albuterol Sulfate (Ventolin Aerosols) 2.5 mg INHALATION Q2H PRN PRN PRN Reason: SOB &/OR WHEEZING Last Admin: 07/23/19 07:26 Dose: 2.5 mg Documented by: Chlorhexidine Gluconate () 15 ml PO BID [facility] Last Admin: 07/22/19 21:38 Dose: 15 ml Documented by: Chlorhexidine Gluconate () 1 each TOPICAL DAILY [facility] Hydroxychloroquine Sulfate 200 mg/ Compound Med 4 ml/Compound Med 4 ml mg GT BID [facility] Stop: 07/25/19 22:01 Last Admin: 07/22/19 21:37 Dose: 8 ml Documented by: Enoxaparin Sodium (Lovenox) 40 mg SC DAILY [facility] Last Admin: 07/22/19 11:30 Dose: 40 mg Documented by: Famotidine (Pepcid) 40 mg GT DAILY [facility] Last Admin: 07/22/19 11:30 Dose: 40 mg Documented by: Fentanyl () 100 mls @ 2.5 mls/hr IV UD [facility]; Protocol Last Titration: 07/23/19 07:00 Dose: 75 mcg/hr, 7.5 mls/hr Documented by: Propofol (Diprivan) 1,000 mg in 100 mls @ 6.024 mls/hr CONT INF .Q12H [facility]; Protocol Last Titration: 07/23/19 07:00 Dose: 25 mcg/kg/min, 15.1 mls/hr Documented by: Sodium Chloride () 250 mls @ 15 mls/hr IV .[id number] PRN PRN Reason: Saline Flush Last Infusion: 07/21/19 21:05 Dose: 0 mls/hr Documented by: Sodium Chloride () 250 mls @ 15 mls/hr IV .[id number] PRN PRN Reason: Additional IVPB Infusion Last Admin: 07/22/19 23:07 Dose: 15 mls/hr Documented by: Enteral Nutritional Formula (Vital Af 1.2 [place] Liquid) 1,000 mls @ 65 mls/hr GT .[id number] [facility] Last Admin: 07/23/19 00:51 Dose: 65 mls/hr Documented by: Azithromycin 500 mg/ Dextrose 255 mls @ 250 mls/hr IV Q24 [facility] Stop: 07/25/19 11:02 Last Infusion: 07/22/19 14:34 Dose: Infused Documented by: Ceftriaxone Sodium 2 gm/ (Sodium Chloride) 50 mls @ 100 mls/hr IV Q24 [facility] Stop: 07/25/19 10:29 Last Infusion: 07/22/19 12:43 Dose: Infused Documented by: Ondansetron HCl (Zofran) 4 mg IV Q8H PRN PRN PRN Reason: NAUSEA/VOMITING Senna/Docusate Sodium (Senokot-S, Arlette-Colace) 2 tablet GT BID [facility] Last Admin: 07/22/19 21:43 Dose: 2 tablet Documented by: Sodium Chloride () 10 - 40 ml IV UD PRN PRN Reason: SALINE FLUSH Last Admin: 07/20/19 05:10 Dose: 10 ml Documented by: Medical Necessity - Tobacco Use Smoking Status: Never smoker Assessment/Plan All Active Problems (Last Reviewed 04/01/17 @ 13:34 by Leandra Duarte) COVID-19 (Acute) ARDS (adult respiratory distress syndrome) (Acute) Sepsis (Acute) Acute respiratory failure with hypoxia (Acute) Bilateral pneumonia (Acute) This is a 63 years old male patient presented to the emergency room because of worsening shortness of breath with cough and fever, found to have bilateral multifocal pulmonary opacities likely due to viral pneumonia and suspected COVID-19, complicated by acute hypoxic respiratory failure. #1 acute hypoxic respiratory failure: Secondary to #2. Remained on IV Rocephin and Zithromax as well as hydroxychloroquine. Patient remained on mechanical ventilation, PEEP is down to 8 with FiO2 45%. Still having spikes of fever. Respiratory panel for viruses were negative. Urine culture showed no growth. Blood cultures showed no growth in 48 hours. [employer] is on the case. Plan to continue same treatment, plan to continue to wean off PEEP and FiO2. #2 acute bilateral probably viral pneumonia/sepsis/COVID-19: COVID-19 testing came back positive. Remained on IV Rocephin, Zithromax and hydroxychloroquine. Continues to have spikes of fever, leukocytosis resolved. Lactic acid was normal. Urine culture showed no growth. Blood cultures showed no growth in 48 hours. Plan as above. #3 DVT prophylaxis: Subcu Lovenox. This note was generated with oragenicsation software. It may contain incorrect words, spelling, and punctuation that were not noted in checking the note before signing. Inpatient E&M: 46647 Subs Hosp L2
[2019-07-23 08:33] LABS: Blood Gas Specimen Type ART
[2019-07-23 08:34] LABS: FI02 45; Mode A-C; O2 Delivery Device Vent; PEEP 8; RR 16; SITE R BRACHIAL; Time Given 754; Vt 450
--- NOTE | 2019-07-23 08:39 | RAD_ITS ---
STUDY: X-RAY CHEST REASON FOR EXAM: Male, 63 years old. HYPOXIA TECHNIQUE: Single AP portable view of the chest. COMPARISON: 19 July 2019 FINDINGS: Endotracheal tube overlies the mid trachea and in unchanged position. NG tube overlies the mid stomach. Diffuse patchy airspace disease throughout the lung parenchyma is present similar to prior exam. There is no demonstrated pleural abnormality. Normal size heart. Normal mediastinum and jose. Normal visualized pulmonary arteries. Normal visualized aortic arch and descending thoracic aorta. Normal visualized thoracic spine. Normal visualized ribs, clavicles, and shoulders. There is no demonstrated abnormality of the visualized soft tissue structures of the upper abdomen. RAD/Chest 1 View (Portable) IMPRESSION: Similar appearance of patchy airspace disease within the bilateral lung parenchyma with no evidence of new focal consolidation. Electronically Signed: Shaheen Rosado DO at 10:39 EDT , Service support ,
[2019-07-23] MEDS: fentaNYL drip 100 ML 10 MCG IV (10:09)
--- NOTE | 2019-07-23 11:00 | CPS ---
Prior to aerosol rx in-line pt was suctioned for sputum sample. Sample was not obtained at this time...no secretions.
[2019-07-23] MEDS: Furosemide 40 MG/4 ML Vial IV (11:23)
[2019-07-23] MEDS: Chlorhexidine 15 ML PO ×2 (11:23→22:58)
[2019-07-23] MEDS: 0.9% Saline Lock 10 ML Syringe IV (11:23)
[2019-07-23] MEDS: Senna/Docusate Sodium 1 Tablet 2 TABLET GT ×2 (11:23→22:57)
[2019-07-23] MEDS: guaiFENesin 10 ML UDC (200MG/10ML) GT ×3 (11:23→22:57)
[2019-07-23] MEDS: Famotidine 20 MG Tablet 40 MG GT (11:23)
[2019-07-23] MEDS: Enoxaparin 40 MG/0.4 ML Syringe SC (11:24)
[2019-07-23] MEDS: CHLORHEXIDINE GLUC 2% CLOTH 1 EACH TOWELETTE TOPICAL (11:24)
[2019-07-23] MEDS: fentaNYL drip 100 ML 12.5 MCG IV (19:10)
[2019-07-24] VITALS (33 sets, daily range): BP systolic 112–156; BP diastolic 65–92; PULSE 67–97; RESP 16–34; TEMP 37.7–38.5; O2SAT 89–97
[2019-07-24] MEDS: Propofol 10MG/Ml 1,000 MG/100 ML Bottle 15.1 MG CONT INF (02:25)
[2019-07-24] MEDS: fentaNYL drip 100 ML 12.5 MCG IV (03:30)
[2019-07-24] MEDS: Acetaminophen 650 MG/20 ML UDC NG ×2 (03:52→21:39)
[2019-07-24] MEDS: guaiFENesin 10 ML UDC (200MG/10ML) GT ×4 (03:52→21:43)
[2019-07-24] MEDS: Propofol 10MG/Ml 1,000 MG/100 ML Bottle 14.8 MG CONT INF (05:54)
--- NOTE | 2019-07-24 07:08 | PCM.PN.INT ---
Subjective: The patient was seen and examined at the bedside this morning. Events from the last 24 hours have been reviewed. The patient remains febrile with a T-max overnight of 102.6 ?F. The patient remains hemodynamically stable on assist control mode of mechanical ventilation with an FiO2 requirement of 70% and PEEP of 8. The patient is currently documented to be overall net +5.1 L for the hospital admission. The patient remains on ceftriaxone, azithromycin and Plaquenil. The patient is currently tolerating tube feeds. The patient did receive a one-time dose of IV Lasix 40 mg yesterday. Creatinine remains stable. Objective: The patient's most recent lab work, culture data and imaging studies have all been personally reviewed. Blood and urine cultures have shown no growth to date. Respiratory viral panel was negative. Sputum culture is currently pending. Coronavirus RNA was detected on July 20. General: - - Intubated, sedated and mechanically ventilated. No significant ventilator dyssynchrony at the present time. The patient is currently overbreathing the ventilator set rate. HEENT: Atraumatic, PERRLA, Normocephalic Oral: No Gingival or Mucosal Lesions/ Ulcerations, - - Endotracheal and OG tubes currently in place. Neck: Supple, No Nodes, Trachea Midline Lungs: No rhonchi, No wheeze, No rales, Diminished, Tachypneic Cardiovascular: Regular rate, Regular Rhythm, Normal S1, Normal S2, No murmurs Abdomen: Bowel Sounds Present, Soft, Non Tender, Obese Extremities: No clubbing, No cyanosis, No edema Skin: No breakdown Musculoskeletal: No Tenderness to Palpation of Joints or Extremities Lymphatic: No Cervical, Supraclavicular, or Inguinal Adenopathy Neurological: - - No focal neurological deficits. The patient remains sedated on the ventilator. Vital Signs Temp Pulse Resp BP Pulse Ox 100.4 F H 74 25 H 124/68 H 93 07/24/19 07:00 07/24/19 07:00 07/24/19 07:00 07/24/19 07:00 07/24/19 07:00 Oxygen Flow Rate (L/min) 45 Oxygen Delivery Method Mechanical Ventilator Weight: 216 lb 14.958 oz Body Mass Index (BMI) 31.1 Intake and Output for Last 24 Hours 07/22/19 07/23/19 07/24/19 23:59 23:59 23:59 Intake Total 1967.40 / 2446.00 3504.65 / 3532.25 785.04 / 785.04 Output Total 1350 / 1350 0 / 2050 400 / 400 Balance 617.40 / 1096.00 1454.65 / 1482.25 385.04 / 385.04 Labs (Last 48 Hours) 07/23/19 07/23/19 07/23/19 05:20 05:20 07:54 WBC 11.6 H RBC 4.18 L Hgb 12.4 L Hct 36.6 L MCV 87.6 MCH 29.7 MCHC 33.9 RDW Std Deviation 40.3 RDW Coeff of David 12.7 Plt Count 238 MPV 12.3 H Immature Gran % (Auto) 1.200 H Neut % (Auto) 76.6 H Lymph % (Auto) 11.4 L [place] % (Auto) 8.0 Eos % (Auto) 2.3 Baso % (Auto) 0.5 Absolute Neuts (auto) 8.9 H Absolute Lymphs (auto) 1.32 Nucleated RBC % 0 Specimen Type ART Sample Site R BRACHIAL pH 7.46 H Bicarbonate Actual 24.9 POC Total CO2 26 Base Excess 1 O2 Saturation 91 L O2 % 45 ABG pCO2 34.8 L ABG pO2 57 L Respiration Rate 16 O2 Delivery Device Vent Vent Mode A-C Tidal Volume 450 POC PEEP 8 Blood Gas Notified Whom ICU Blood Gas Notified Time 754 Sodium 139 Potassium 3.5 Chloride 107 Carbon Dioxide 25.0 Anion Gap 7 BUN 27 H Creatinine 0.96 Estim Creat Clear Calc 83.43 Est GFR (MDRD) Af Amer 103 Est GFR (MDRD) Non-Af 85 BUN/Creatinine Ratio 28.3 H Glucose 173 H Calcium 8.3 L Microbiology 07/19/19 16:06 Blood Culture (Wb) - Anticubital Right Blood Culture - Preliminary No growth in 48 hours. 07/19/19 16:15 Blood Culture (Wb) - Left Forearm Blood Culture - Preliminary No growth in 48 hours. 07/19/19 18:13 Urine, Clean Catch Urine Culture - Final Culture exhibits no growth. Clinical Impression(s) from Imaging Studies Chest X-Ray 07/19/19 16:23 IMPRESSION: Thickening multifocal bilateral pulmonary opacities most consistent with acute infection. Electronically Signed: Damaso Parra, at 17:44 EDT Tel , Service support , Chest X-Ray 07/19/19 17:20 IMPRESSION: Endotracheal tube tip is in the midthoracic trachea. Enteric tube tip is in the stomach. Similar-appearing multifocal pulmonary opacities bilaterally. Electronically Signed: Damaso Parra, at 17:49 EDT Tel , Service support , Chest X-Ray 07/23/19 08:39 IMPRESSION: Similar appearance of patchy airspace disease within the bilateral lung parenchyma with no evidence of new focal consolidation. Electronically Signed: Shaheen Rosado DO at 10:39 EDT , Service support , Medical Necessity - Tobacco Use Smoking Status: Never smoker Assessment/Plan All Active Problems (Last Reviewed 04/01/17 @ 13:34 by Leandra Duarte) COVID-19 (Acute) ARDS (adult respiratory distress syndrome) (Acute) Sepsis (Acute) Acute respiratory failure with hypoxia (Acute) Bilateral pneumonia (Acute) RECOMMENDATIONS: 1. Start IV Lasix 40 mg twice daily. 2. Check CBC with differential, BMP and BNP. 3. Continue antimicrobials and hydroxychloroquine, per ID recommendations. 4. Continue tube feeds as tolerated. 5. Continue lung protective ventilatory strategy. Wean FiO2 and PEEP to maintain oxygen saturations at or above 90%. 6. Continue appropriate ICU prophylaxis. IMPRESSIONS: 1. Acute hypoxemic respiratory failure secondary to ARDS due to COVID 19 Infection Continue current supportive measures with invasive mechanical ventilatory support, employing a lung protective strategy, along with antimicrobials and hydroxychloroquine per ID recommendations. Wean FiO2 and PEEP to maintain oxygen saturations at or above 90%. We will plan to start twice daily scheduled Lasix today. Continue propofol and fentanyl for sedation, along with tube feeds as tolerated. 2. Chronic pain syndrome/obesity Complicates care, management, recovery and prognosis. TIME: 38 minutes of critical care time, independent of procedures, was spent addressing the patient's acute hypoxemic respiratory failure, ARDS secondary to coronavirus infection, review of all data and collaboration with the care team. [phone]) [phone]: [phone] Critical care first hour
[2019-07-24] MEDS: Vital AF 1.2 Cal Liquid 1,000 ML 65 ML GT (08:29)
[2019-07-24] MEDS: Senna/Docusate Sodium 1 Tablet 2 TABLET GT ×2 (08:29→21:43)
[2019-07-24] MEDS: Famotidine 20 MG Tablet 40 MG GT (08:29)
[2019-07-24] MEDS: 0.9% Saline Lock 10 ML Syringe IV ×3 (08:29→17:53)
[2019-07-24] MEDS: Enoxaparin 40 MG/0.4 ML Syringe SC (08:30)
[2019-07-24] MEDS: CHLORHEXIDINE GLUC 2% CLOTH 1 EACH TOWELETTE TOPICAL (08:30)
[2019-07-24] MEDS: Chlorhexidine 15 ML PO ×2 (08:32→22:29)
[2019-07-24] MEDS: Furosemide 40 MG/4 ML Vial IV ×2 (08:42→17:53)
[2019-07-24 08:55] LABS: Absolute Lymphocyte Count 1.35 X10^3/uL (0.83-4.51); Absolute Neutrophil Count 7.2 X10^3/uL (2.0-7.7); Basophil# 0.05 X10^3/uL; Basophil% 0.5 % (0-1); Eosinophil# 0.39 X10^3/uL; Eosinophils% 3.8 % (0-5); Hematocrit 34.4 % (40-54); Hemoglobin 11.7 g/dL (13.0-16.5); Lymphocyte # 1.35 X10^3/ul (4.0); Lymphocyte % 13.2 % (19-41); Mean Corpuscular Hgb 29.6 pg (27.0-32.0); Mean Corpuscular Volume 87.1 fL (80-94); Mean Platelet Vol. 12.3 fl (6.2-12.0); Monocyte# 0.99 X10^3/uL; Monocyte% 9.6 % (0-10); NRBC Flagged by Analyzer 0 % (0-5); Neutrophil # 7.19 X10^3/uL (2.7-7.7); Neutrophil % 70.1 % (47-70); Platelet Count 322 K/mm3 (150-450); RBC Distribution Width CV 12.7 % (11.6-14.6); RBC Distribution Width SD 40.3 fl (35.1-43.9); Red Blood Count 3.95 M/mm3 (4.6-6.2); White Blood Count 10.3 K/mm3 (4.4-11.0)
[2019-07-24 09:07] LABS: Anion Gap 6 (5-15); BUN 33 mg/dL (7-18); BUN/Creat Ratio 33.1 RATIO (10-20); Calcium,Total 8.5 mg/dL (8.5-10.1); Chloride 106 mmol/L (98-107); EST Glomerular Filtration Rate 81 mL/min (>60); Est Glom Filt Rate - Afr Amer 98 mL/min (>60); Glucose 178 mg/dL (74-106); Magnesium 2.5 mg/dL (1.6-2.6); Potassium 3.7 mmol/L (3.5-5.1); Sodium Level 140 mmol/L (136-145)
[2019-07-24 09:12] LABS: BNP,B-Type NATRIURETIC PEPTIDE 19.8 pg/mL (0-100)
[2019-07-24] MEDS: fentaNYL drip 100 ML 10 MCG IV ×2 (11:30→22:00)
--- NOTE | 2019-07-24 11:42 | CASEMGMT ---
RN CM Note: participated in ICU interdisciplinary rounds. Pt remains intubated, on ventilator. Failed mobility for today, PT/OT to resume when medically stable. DC planning deferred at this time due to medical condition. CM will continue to follow for care coordination. Luis Antonio YARBROUGHN RN ACM
--- NOTE | 2019-07-24 11:58 | PCM.PN.HOSP ---
Patient Problems: Active and Suspected Problems (Last Reviewed 04/01/17 @ 13:34 by Leandra Duarte) ARDS (adult respiratory distress syndrome) (Acute) Acute respiratory failure with hypoxia (Acute) Bilateral pneumonia (Acute) Subjective: Intubated but not currently sedated, he does communicate by writing on a piece of paper Vitals/I&O's: Vital Signs Temp Pulse Resp BP Pulse Ox 100.4 F H 67 29 H 124/68 H 93 07/24/19 07:00 07/24/19 09:17 07/24/19 09:17 07/24/19 07:00 07/24/19 09:17 Oxygen Flow Rate (L/min) 45 Oxygen Delivery Method Mechanical Ventilator Weight: 216 lb 14.958 oz Body Mass Index (BMI) 31.1 Intake and Output for Last 24 Hours 07/22/19 07/23/19 07/24/19 23:59 23:59 23:59 Intake Total 1967.40 / 2446.00 3504.65 / 3532.25 1264.93 / 1264.93 Output Total 1350 / 1350 0 / 2050 400 / 400 Balance 617.40 / 1096.00 1454.65 / 1482.25 864.93 / 864.93 General: Alert, Oriented x3, Cooperative, No apparent distress, - - Intubated HEENT: Atraumatic, PERRLA, EOMI, Normocephalic Oral: Moist Mucosa Neck: Supple, No JVD Lungs: No rhonchi, No wheeze, No rales, Diminished Cardiovascular: Regular rate, Regular Rhythm, Normal S1, Normal S2, No murmurs Abdomen: Soft, Non Tender, Non-Distended, No Hepato-splenomegaly Extremities: No edema, Capillary Refill Less than 3 Seconds Skin: No rashes, No breakdown Neurological: Neuro grossly intact, Sensory exam intact to light touch and pain, - - Intubated but not sedated Psych/Mental Status: Normal Affect, Appropriate Microbiology Past 72 Hours 07/23/19 16:20 Sputum, Induced/[place] Gram Stain - Final 07/23/19 16:20 Sputum, Induced/[place] Respiratory Culture - Preliminary Appears to be normal respiratory lesli. Further studies to follow. 07/19/19 16:06 Blood Culture (Wb) - Anticubital Right Blood Culture - Preliminary No growth in 48 hours. 07/19/19 16:15 Blood Culture (Wb) - Left Forearm Blood Culture - Preliminary No growth in 48 hours. 07/19/19 18:13 Urine, Clean Catch Urine Culture - Final Culture exhibits no growth. Laboratory Results 07/24/19 08:25: B-Natriuretic Peptide 19.8 07/24/19 08:25: WBC 10.3, RBC 3.95 L, Hgb 11.7 L, Hct 34.4 L, MCV 87.1, MCH 29.6, MCHC 34.0, RDW Std Deviation 40.3, RDW Coeff of David 12.7, Plt Count 322, MPV 12.3 H, Immature Gran % (Auto) 2.800 H, Neut % (Auto) 70.1 H, Lymph % (Auto) 13.2 L, [place] % (Auto) 9.6, Eos % (Auto) 3.8, Baso % (Auto) 0.5, Absolute Neuts (auto) 7.2, Absolute Lymphs (auto) 1.35, Nucleated RBC % 0 07/24/19 08:25: Sodium 140, Potassium 3.7, Chloride 106, Carbon Dioxide 28.0, Anion Gap 6, BUN 33 H, Creatinine 1.00, Estim Creat Clear Calc 80.10, Est GFR (MDRD) Af Amer 98, Est GFR (MDRD) Non-Af 81, BUN/Creatinine Ratio 33.1 H, Glucose 178 H, Calcium 8.5, Phosphorus 3.0, Magnesium 2.5 Current Medications Acetaminophen (Tylenol Liquid) 650 mg NG Q6H PRN PRN PRN Reason: Pain Score 1-10/Temp > 100.7 F Last Admin: 07/24/19 03:52 Dose: 650 mg Documented by: Albuterol Sulfate (Ventolin Aerosols) 2.5 mg INHALATION Q2H PRN PRN PRN Reason: SOB &/OR WHEEZING Last Admin: 07/23/19 23:56 Dose: 2.5 mg Documented by: Bisacodyl (Dulcolax) 10 mg RECTAL DAILY PRN PRN Reason: Constipation Chlorhexidine Gluconate () 15 ml PO BID [facility] Last Admin: 07/24/19 08:32 Dose: 15 ml Documented by: Chlorhexidine Gluconate () 1 each TOPICAL DAILY [facility] Last Admin: 07/24/19 08:30 Dose: 1 each Documented by: Hydroxychloroquine Sulfate 200 mg/ Compound Med 4 ml/Compound Med 4 ml mg GT BID [facility] Stop: 07/25/19 22:01 Last Admin: 07/24/19 08:30 Dose: 8 ml Documented by: Enoxaparin Sodium (Lovenox) 40 mg SC DAILY [facility] Last Admin: 07/24/19 08:30 Dose: 40 mg Documented by: Famotidine (Pepcid) 40 mg GT DAILY [facility] Last Admin: 07/24/19 08:29 Dose: 40 mg Documented by: Furosemide (Lasix) 40 mg IV BID@1000,1800 [facility] Last Admin: 07/24/19 08:42 Dose: 40 mg Documented by: Guaifenesin (Robitussin) 10 ml GT Q6H [facility] Last Admin: 07/24/19 08:29 Dose: 10 ml Documented by: Fentanyl () 100 mls @ 2.5 mls/hr IV UD [facility]; Protocol Last Admin: 07/24/19 11:30 Dose: 125 mcg/hr, 12.5 mls/hr Documented by: Propofol (Diprivan) 1,000 mg in 100 mls @ 5.904 mls/hr CONT INF .Q12H [facility]; Protocol Last Titration: 07/24/19 11:15 Dose: 20 mcg/kg/min, 11.8 mls/hr Documented by: Sodium Chloride () 250 mls @ 15 mls/hr IV .[id number] PRN PRN Reason: Saline Flush Last Infusion: 07/24/19 00:13 Dose: Infused Documented by: Sodium Chloride () 250 mls @ 15 mls/hr IV .[id number] PRN PRN Reason: Additional IVPB Infusion Last Infusion: 07/23/19 16:06 Dose: Infused Documented by: Enteral Nutritional Formula (Vital Af 1.2 [place] Liquid) 1,000 mls @ 65 mls/hr GT .[id number] [facility] Last Admin: 07/24/19 08:29 Dose: 65 mls/hr Documented by: Azithromycin 500 mg/ Dextrose 255 mls @ 250 mls/hr IV Q24 [facility] Stop: 07/25/19 11:02 Last Infusion: 07/23/19 12:27 Dose: Infused Documented by: Ceftriaxone Sodium 2 gm/ (Sodium Chloride) 50 mls @ 100 mls/hr IV Q24 [facility] Stop: 07/25/19 10:29 Last Infusion: 07/24/19 11:00 Dose: Infused Documented by: Ondansetron HCl (Zofran) 4 mg IV Q8H PRN PRN PRN Reason: NAUSEA/VOMITING Senna/Docusate Sodium (Senokot-S, Arlette-Colace) 2 tablet GT BID [facility] Last Admin: 07/24/19 08:29 Dose: 2 tablet Documented by: Sodium Chloride () 10 - 40 ml IV UD PRN PRN Reason: SALINE FLUSH Last Admin: 07/24/19 08:42 Dose: 10 ml Documented by: STROKE Vital Signs/Narrative: Vital Signs Pulse Resp Pulse Ox 07/24/19 09:17 67 29 H 93 Medical Necessity - Tobacco Use Smoking Status: Never smoker Assessment/Plan All Active Problems (Last Reviewed 04/01/17 @ 13:34 by Leandra Duarte) COVID-19 (Acute) ARDS (adult respiratory distress syndrome) (Acute) Sepsis (Acute) Acute respiratory failure with hypoxia (Acute) Bilateral pneumonia (Acute) 1. Acute hypoxic respiratory failure secondary to ARDS from COVID-19 pneumonia/sepsis -intubated. FiO2 is at 70%, he is also on fentanyl and propofol though he is alert and able to communicate via writing -He is on Rocephin and azithromycin as well as Plaquenil -We will continue with Lasix twice daily since he is almost 6 L positive -Culture data is negative for any coinfection DVT: Lovenox Inpatient E&M: 33507 Subs Hosp L2
[2019-07-24] MEDS: Propofol 10MG/Ml 1,000 MG/100 ML Bottle 8.9 MG CONT INF ×2 (13:30→20:30)
--- NOTE | 2019-07-24 14:25 | PCM.PN.ID ---
Patient Problems: Active and Suspected Problems (Last Reviewed 04/01/17 @ 13:34 by Leandra Duarte) ARDS (adult respiratory distress syndrome) (Acute) Acute respiratory failure with hypoxia (Acute) Bilateral pneumonia (Acute) Subjective: Awake, on vent, fever overnight. - Physical Exam Vitals/I&O's: Vital Signs Temp Pulse Resp BP Pulse Ox 99.9 F H 97 23 H 140/76 H 97 07/24/19 13:00 07/24/19 13:25 07/24/19 13:25 07/24/19 13:00 07/24/19 13:25 Oxygen Flow Rate (L/min) 45 Oxygen Delivery Method Mechanical Ventilator Weight: 98.4 kg Body Mass Index (BMI) 31.1 Intake and Output for Last 24 Hours 07/22/19 07/23/19 07/24/19 23:59 23:59 23:59 Intake Total 1967.40 / 2446.00 3504.65 / 3532.25 2140.73 / 2140.73 Output Total 1350 / 1350 2050 / 2050 2150 / 2150 Balance 617.40 / 1096.00 1454.65 / 1482.25 -9.27 / -9.27 General: No apparent distress Lungs: Normal air movement Cardiovascular: Regular rate, Regular Rhythm Abdomen: Non-Distended Skin: No rashes Microbiology Past 72 Hours 07/23/19 16:20 Sputum, Induced/Lukens Gram Stain - Final 07/23/19 16:20 Sputum, Induced/Lukens Respiratory Culture - Preliminary Appears to be normal respiratory lesli. Further studies to follow. 07/19/19 16:06 Blood Culture (Wb) - Anticubital Right Blood Culture - Preliminary No growth in 48 hours. 07/19/19 16:15 Blood Culture (Wb) - Left Forearm Blood Culture - Preliminary No growth in 48 hours. 07/19/19 18:13 Urine, Clean Catch Urine Culture - Final Culture exhibits no growth. Laboratory Results 07/24/19 08:25: B-Natriuretic Peptide 19.8 07/24/19 08:25: WBC 10.3, RBC 3.95 L, Hgb 11.7 L, Hct 34.4 L, MCV 87.1, MCH 29.6, MCHC 34.0, RDW Std Deviation 40.3, RDW Coeff of David 12.7, Plt Count 322, MPV 12.3 H, Immature Gran % (Auto) 2.800 H, Neut % (Auto) 70.1 H, Lymph % (Auto) 13.2 L, [place] % (Auto) 9.6, Eos % (Auto) 3.8, Baso % (Auto) 0.5, Absolute Neuts (auto) 7.2, Absolute Lymphs (auto) 1.35, Nucleated RBC % 0 07/24/19 08:25: Sodium 140, Potassium 3.7, Chloride 106, Carbon Dioxide 28.0, Anion Gap 6, BUN 33 H, Creatinine 1.00, Estim Creat Clear Calc 80.10, Est GFR (MDRD) Af Amer 98, Est GFR (MDRD) Non-Af 81, BUN/Creatinine Ratio 33.1 H, Glucose 178 H, Calcium 8.5, Phosphorus 3.0, Magnesium 2.5 Current Medications Acetaminophen (Tylenol Liquid) 650 mg NG Q6H PRN PRN PRN Reason: Pain Score 1-10/Temp > 100.7 F Last Admin: 07/24/19 03:52 Dose: 650 mg Documented by: Albuterol Sulfate (Ventolin Aerosols) 2.5 mg INHALATION Q2H PRN PRN PRN Reason: SOB &/OR WHEEZING Last Admin: 07/23/19 23:56 Dose: 2.5 mg Documented by: Bisacodyl (Dulcolax) 10 mg RECTAL DAILY PRN PRN Reason: Constipation Chlorhexidine Gluconate () 15 ml PO BID [facility] Last Admin: 07/24/19 08:32 Dose: 15 ml Documented by: Chlorhexidine Gluconate () 1 each TOPICAL DAILY [facility] Last Admin: 07/24/19 08:30 Dose: 1 each Documented by: Hydroxychloroquine Sulfate 200 mg/ Compound Med 4 ml/Compound Med 4 ml mg GT BID [facility] Stop: 07/25/19 22:01 Last Admin: 07/24/19 08:30 Dose: 8 ml Documented by: Enoxaparin Sodium (Lovenox) 40 mg SC DAILY [facility] Last Admin: 07/24/19 08:30 Dose: 40 mg Documented by: Famotidine (Pepcid) 40 mg GT DAILY [facility] Last Admin: 07/24/19 08:29 Dose: 40 mg Documented by: Furosemide (Lasix) 40 mg IV BID@1000,1800 [facility] Last Admin: 07/24/19 08:42 Dose: 40 mg Documented by: Guaifenesin (Robitussin) 10 ml GT Q6H [facility] Last Admin: 07/24/19 08:29 Dose: 10 ml Documented by: Fentanyl () 100 mls @ 2.5 mls/hr IV UD [facility]; Protocol Last Titration: 07/24/19 12:00 Dose: 100 mcg/hr, 10 mls/hr Documented by: Propofol (Diprivan) 1,000 mg in 100 mls @ 5.904 mls/hr CONT INF .Q12H [facility]; Protocol Last Titration: 07/24/19 12:15 Dose: 15 mcg/kg/min, 8.9 mls/hr Documented by: Sodium Chloride () 250 mls @ 15 mls/hr IV .[id number] PRN PRN Reason: Saline Flush Last Infusion: 07/24/19 00:13 Dose: Infused Documented by: Sodium Chloride () 250 mls @ 15 mls/hr IV .[id number] PRN PRN Reason: Additional IVPB Infusion Last Infusion: 07/23/19 16:06 Dose: Infused Documented by: Enteral Nutritional Formula (Vital Af 1.2 [place] Liquid) 1,000 mls @ 65 mls/hr GT .[id number] [facility] Last Admin: 07/24/19 08:29 Dose: 65 mls/hr Documented by: Azithromycin 500 mg/ Dextrose 255 mls @ 250 mls/hr IV Q24 [facility] Stop: 07/25/19 11:02 Last Infusion: 07/24/19 12:32 Dose: Infused Documented by: Ceftriaxone Sodium 2 gm/ (Sodium Chloride) 50 mls @ 100 mls/hr IV Q24 [facility] Stop: 07/25/19 10:29 Last Infusion: 07/24/19 11:00 Dose: Infused Documented by: Ondansetron HCl (Zofran) 4 mg IV Q8H PRN PRN PRN Reason: NAUSEA/VOMITING Senna/Docusate Sodium (Senokot-S, Arlette-Colace) 2 tablet GT BID [facility] Last Admin: 07/24/19 08:29 Dose: 2 tablet Documented by: Sodium Chloride () 10 - 40 ml IV UD PRN PRN Reason: SALINE FLUSH Last Admin: 07/24/19 08:42 Dose: 10 ml Documented by: Medical Necessity - Tobacco Use Smoking Status: Never smoker Route of nutrition/ use of supplements: [] Nutritional Intake: [] IV Site: [] [place] Catheter: [] - Assessment/Plan Antibiotics: [] Assessment/Plan: [] Active and Suspected Problems (Last Reviewed 04/01/17 @ 13:34 by Leandra Duarte) Suspected 2019 novel coronavirus infection (Acute) ARDS (adult respiratory distress syndrome) (Acute) Sepsis (Acute) Acute respiratory failure with hypoxia (Acute) Bilateral pneumonia (Acute) Acute hypoxic resp failure with sepsis - covid pending. Wbc normal now, still having fever. Resp pcr panel was neg. 07/20 started empiric 5 day course of azithro/plaquenil due to high suspicion for COVID. Monitoring qtc. On ceftriaxone. Will follow
[2019-07-25] VITALS (34 sets, daily range): BP systolic 110–132; BP diastolic 64–87; PULSE 67–84; RESP 16–33; TEMP 37.4–38.2; O2SAT 90–94
[2019-07-25] MEDS: Vital AF 1.2 Cal Liquid 1,000 ML 65 ML GT ×2 (00:30→14:51)
[2019-07-25] MEDS: Propofol 10MG/Ml 1,000 MG/100 ML Bottle 14.8 MG CONT INF (03:13)
[2019-07-25] MEDS: guaiFENesin 10 ML UDC (200MG/10ML) GT ×4 (05:17→21:11)
[2019-07-25 05:38] LABS: Absolute Lymphocyte Count 1.58 X10^3/uL (0.83-4.51); Absolute Neutrophil Count 5.3 X10^3/uL (2.0-7.7); Basophil# 0.05 X10^3/uL; Basophil% 0.6 % (0-1); Eosinophil# 0.42 X10^3/uL; Eosinophils% 4.9 % (0-5); Hematocrit 35.9 % (40-54); Lymphocyte # 1.58 X10^3/ul (4.0); Lymphocyte % 18.3 % (19-41); Mean Corp Hgb Conc 33.4 g/dL (32-36); Mean Corpuscular Hgb 29.2 pg (27.0-32.0); Mean Corpuscular Volume 87.3 fL (80-94); Mean Platelet Vol. 11.9 fl (6.2-12.0); Monocyte# 0.97 X10^3/uL; Monocyte% 11.2 % (0-10); NRBC Flagged by Analyzer 0 % (0-5); Neutrophil # 5.31 X10^3/uL (2.7-7.7); Neutrophil % 61.3 % (47-70); Platelet Count 385 K/mm3 (150-450); RBC Distribution Width CV 12.7 % (11.6-14.6); RBC Distribution Width SD 40.7 fl (35.1-43.9); Red Blood Count 4.11 M/mm3 (4.6-6.2); White Blood Count 8.7 K/mm3 (4.4-11.0)
[2019-07-25 06:06] LABS: Anion Gap 6 (5-15); BUN 37 mg/dL (7-18); BUN/Creat Ratio 37.8 RATIO (10-20); Calcium,Total 8.8 mg/dL (8.5-10.1); Chloride 103 mmol/L (98-107); Creatinine, Serum 0.98 mg/dL (0.70-1.30); EST Glomerular Filtration Rate 82 mL/min (>60); Est Glom Filt Rate - Afr Amer 100 mL/min (>60); Estimated Creatinine Clearance 81.73 ml/min; Glucose 162 mg/dL (74-106); Potassium 3.4 mmol/L (3.5-5.1); Sodium Level 141 mmol/L (136-145)
--- NOTE | 2019-07-25 06:29 | PN_ITS ---
Subjective: The patient was seen and examined at the bedside this morning. Events from the last 24 hours have been reviewed. Although the patient remains febrile, fever curve appears to be improving. The patient remains on assist control mode mechanical ventilation with an FiO2 requirement of 65% and PEEP of 8. Potassium is low this morning at 3.4. Creatinine is stable. The patient remains on twice daily scheduled IV Lasix. He has been tolerating tube feeds. The patient is currently documented to be overall net +4.3 L for the hospital admission. Objective: The patient's most recent lab work, culture data and imaging studies have all been personally reviewed. Blood and urine cultures have shown no growth to date. Respiratory viral panel was negative. Sputum culture is currently pending. Coronavirus RNA was detected on July 20. General: - - Remains intubated and mechanically ventilated. No dyssynchrony. Patient texting on his cell phone. HEENT: Atraumatic, PERRLA, Normocephalic Oral: Moist Mucosa, No Gingival or Mucosal Lesions/ Ulcerations, - - Endotracheal and OG tubes remain in place. Neck: Supple, No Nodes, Trachea Midline Lungs: No rhonchi, No wheeze, No rales, Diminished, Tachypneic Cardiovascular: Regular rate, Regular Rhythm, Normal S1, Normal S2, No murmurs Abdomen: Bowel Sounds Present, Soft, Non Tender, Obese Extremities: No clubbing, No cyanosis Skin: No breakdown Musculoskeletal: No Muscle Wasting Lymphatic: No Cervical, Supraclavicular, or Inguinal Adenopathy Neurological: Neuro grossly intact, - - Alert and follows commands. Moves extremities spontaneously. Vital Signs Temp Pulse Resp BP Pulse Ox 99.5 F H 77 26 H 112/80 93 07/25/19 06:00 07/25/19 06:00 07/25/19 06:00 07/25/19 06:00 07/25/19 06:00 Oxygen Flow Rate (L/min) 45 Oxygen Delivery Method Mechanical Ventilator Weight: 212 lb 15.465 oz Body Mass Index (BMI) 31.1 Intake and Output for Last 24 Hours 07/23/19 07/24/19 07/25/19 23:59 23:59 23:59 Intake Total 3504.65 / 3532.25 2830.43 / 3380.33 1047.00 / 1047.00 Output Total 2050 / 205 2600 / 4000 1750 / 1750 Balance 1454.65 / 1482.25 230.43 / -619.67 -703.00 / -703.00 Labs (Last 48 Hours) 07/23/19 07/24/19 07/24/19 07:54 08:25 08:25 WBC 10.3 RBC 3.95 L Hgb 11.7 L Hct 34.4 L MCV 87.1 MCH 29.6 MCHC 34.0 RDW Std Deviation 40.3 RDW Coeff of David 12.7 Plt Count 322 MPV 12.3 H Immature Gran % (Auto) 2.800 H Neut % (Auto) 70.1 H Lymph % (Auto) 13.2 L [place] % (Auto) 9.6 Eos % (Auto) 3.8 Baso % (Auto) 0.5 Absolute Neuts (auto) 7.2 Absolute Lymphs (auto) 1.35 Nucleated RBC % 0 Specimen Type ART Sample Site R BRACHIAL pH 7.46 H Bicarbonate Actual 24.9 POC Total CO2 26 Base Excess 1 O2 Saturation 91 L O2 % 45 ABG pCO2 34.8 L ABG pO2 57 L Respiration Rate 16 O2 Delivery Device Vent Vent Mode A-C [place]idal Volume 450 POC PEEP 8 Blood Gas Notified Whom ICU MD Blood Gas Notified Time 754 Sodium Potassium Chloride Carbon Dioxide Anion Gap BUN Creatinine Estim Creat Clear Calc Est GFR (MDRD) Af Amer Est GFR (MDRD) Non-Af BUN/Creatinine Ratio Glucose Calcium Phosphorus Magnesium B-Natriuretic Peptide 19.8 07/24/19 07/25/19 07/25/19 08:25 05:15 05:15 WBC 8.7 RBC 4.11 L Hgb 12.0 L Hct 35.9 L MCV 87.3 MCH 29.2 MCHC 33.4 RDW Std Deviation 40.7 RDW Coeff of David 12.7 Plt Count 385 MPV 11.9 Immature Gran % (Auto) 3.700 H Neut % (Auto) 61.3 Lymph % (Auto) 18.3 L [place] % (Auto) 11.2 H Eos % (Auto) 4.9 Baso % (Auto) 0.6 Absolute Neuts (auto) 5.3 Absolute Lymphs (auto) 1.58 Nucleated RBC % 0 Specimen Type Sample Site pH Bicarbonate Actual POC Total CO2 Base Excess O2 Saturation O2 % ABG pCO2 ABG pO2 Respiration Rate O2 Delivery Device Vent Mode Tidal Volume POC PEEP Blood Gas Notified Whom Blood Gas Notified Time Sodium 140 141 Potassium 3.7 3.4 L Chloride 106 103 Carbon Dioxide 28.0 32.0 Anion Gap 6 6 BUN 33 H 37 H Creatinine 1.00 0.98 Estim Creat Clear Calc 80.10 81.73 Est GFR (MDRD) Af Amer 98 100 Est GFR (MDRD) Non-Af 81 82 BUN/Creatinine Ratio 33.1 H 37.8 H Glucose 178 H 162 H Calcium 8.5 8.8 Phosphorus 3.0 Magnesium 2.5 B-Natriuretic Peptide Microbiology 07/19/19 16:15 Blood Culture (Wb) - Left Forearm Blood Culture - Final No growth in 5 days. 07/19/19 16:06 Blood Culture (Wb) - Anticubital Right Blood Culture - Final No growth in 5 days. 07/23/19 16:20 Sputum, Induced/Lukens Gram Stain - Final 07/23/19 16:20 Sputum, Induced/Lukens Respiratory Culture - Preliminary Appears to be normal respiratory lesli. Further studies to follow. Clinical Impression(s) from Imaging Studies Chest X-Ray 07/19/19 16:23 IMPRESSION: Thickening multifocal bilateral pulmonary opacities most consistent with acute infection. Electronically Signed: Damaso Parra, at 17:44 EDT Tel , Service support , Chest X-Ray 07/19/19 17:20 IMPRESSION: Endotracheal tube tip is in the midthoracic trachea. Enteric tube tip is in the stomach. Similar-appearing multifocal pulmonary opacities bilaterally. Electronically Signed: Damaso Parra, at 17:49 EDT Tel , Service support , Chest X-Ray 07/23/19 08:39 IMPRESSION: Similar appearance of patchy airspace disease within the bilateral lung parenchyma with no evidence of new focal consolidation. Electronically Signed: Shaheen Rosado DO at 10:39 EDT , Service support , Medical Necessity - Tobacco Use Smoking Status: Never smoker Assessment/Plan All Active Problems (Last Reviewed 04/01/17 @ 13:34 by Leandra Duarte) COVID-19 (Acute) ARDS (adult respiratory distress syndrome) (Acute) Sepsis (Acute) Acute respiratory failure with hypoxia (Acute) Bilateral pneumonia (Acute) RECOMMENDATIONS: 1. Continue twice daily Lasix as tolerated by renal function. 2. Continue antimicrobials and hydroxychloroquine, per ID recommendations. 3. Continue tube feeds as tolerated. 4. Continue lung protective ventilatory strategy. Wean FiO2 and PEEP to maintain oxygen saturations at or above 90%. 5. Continue appropriate ICU prophylaxis. IMPRESSIONS: 1. Acute hypoxemic respiratory failure secondary to ARDS due to COVID 19 Infection Continue current supportive measures with invasive mechanical ventilatory support, employing a lung protective strategy, along with antimicrobials and hydroxychloroquine per ID recommendations. Wean FiO2 and PEEP to maintain oxygen saturations at or above 90%. Continue twice daily scheduled Lasix. Continue propofol and fentanyl for sedation, along with tube feeds as tolerated. 2. Chronic pain syndrome/obesity Complicates care, management, recovery and prognosis. TIME: 38 minutes of critical care time, independent of procedures, was spent addressing the patient's acute hypoxemic respiratory failure, ARDS secondary to coronavirus infection, review of all data and collaboration with the care team. [id number]) [phone] [id number] Critical care first hour
[2019-07-25] MEDS: Potassium Chloride 10mEq/100mL 10 MEQ/100 ML IV.SOLN. 100 MEQ IV BOLUS ×4 (06:57→13:00)
[2019-07-25] MEDS: fentaNYL drip 100 ML 10 MCG IV ×2 (08:00→18:00)
[2019-07-25] MEDS: Furosemide 40 MG/4 ML Vial IV ×2 (08:27→16:34)
[2019-07-25] MEDS: Famotidine 20 MG Tablet 40 MG GT (08:28)
[2019-07-25] MEDS: Enoxaparin 40 MG/0.4 ML Syringe SC (08:28)
[2019-07-25] MEDS: CHLORHEXIDINE GLUC 2% CLOTH 1 EACH TOWELETTE TOPICAL (08:32)
[2019-07-25] MEDS: Chlorhexidine 15 ML PO ×2 (08:33→21:11)
--- NOTE | 2019-07-25 09:43 | PN_ITS ---
Patient Problems: Active and Suspected Problems (Last Reviewed 04/01/17 @ 13:34 by Leandra Duarte) ARDS (adult respiratory distress syndrome) (Acute) Acute respiratory failure with hypoxia (Acute) Bilateral pneumonia (Acute) Subjective: Intubated, but alert. No issues overnight Vitals/I&O's: Vital Signs Temp Pulse Resp BP Pulse Ox 99.4 F H 76 27 H 125/77 H 91 07/25/19 08:00 07/25/19 08:00 07/25/19 08:00 07/25/19 08:00 07/25/19 08:00 Oxygen Flow Rate (L/min) 45 Oxygen Delivery Method Mechanical Ventilator Weight: 212 lb 15.465 oz Body Mass Index (BMI) 31.1 Intake and Output for Last 24 Hours 07/23/19 07/24/19 07/25/19 23:59 23:59 23:59 Intake Total 3504.65 / 3532.25 2830.43 / 3380.33 1860.90 / 1860.90 Output Total 2050 / 0 2600 / 4000 1750 / 1750 Balance 1454.65 / 1482.25 230.43 / -619.67 110.90 / 110.90 General: Alert, Oriented x3, Cooperative, No apparent distress, - - Intubated HEENT: Atraumatic, PERRLA, EOMI, Normocephalic Oral: Moist Mucosa Neck: Supple, No JVD Lungs: No rhonchi, No wheeze, No rales, Diminished Cardiovascular: Regular rate, Regular Rhythm, Normal S1, Normal S2, No murmurs Abdomen: Soft, Non Tender, Non-Distended, No Hepato-splenomegaly Extremities: No edema, Capillary Refill Less than 3 Seconds Skin: No rashes, No breakdown Neurological: Neuro grossly intact, Sensory exam intact to light touch and pain, - - Intubated but not sedated Psych/Mental Status: Normal Affect, Appropriate Microbiology Past 72 Hours 07/19/19 16:15 Blood Culture (Wb) - Left Forearm Blood Culture - Final No growth in 5 days. 07/19/19 16:06 Blood Culture (Wb) - Anticubital Right Blood Culture - Final No growth in 5 days. 07/23/19 16:20 Sputum, Induced/Lukens Gram Stain - Final 07/23/19 16:20 Sputum, Induced/Lukens Respiratory Culture - Preliminary Appears to be normal respiratory lesli. Further studies to follow. 07/19/19 18:13 Urine, Clean Catch Urine Culture - Final Culture exhibits no growth. Laboratory Results 07/25/19 05:15: WBC 8.7, RBC 4.11 L, Hgb 12.0 L, Hct 35.9 L, MCV 87.3, MCH 29.2, MCHC 33.4, RDW Std Deviation 40.7, RDW Coeff of David 12.7, Plt Count 385, MPV 11.9, Immature Gran % (Auto) 3.700 H, Neut % (Auto) 61.3, Lymph % (Auto) 18.3 L, [place] % (Auto) 11.2 H, Eos % (Auto) 4.9, Baso % (Auto) 0.6, Absolute Neuts (auto) 5.3, Absolute Lymphs (auto) 1.58, Nucleated RBC % 0 07/25/19 05:15: Sodium 141, Potassium 3.4 L, Chloride 103, Carbon Dioxide 32.0, Anion Gap 6, BUN 37 H, Creatinine 0.98, Estim Creat Clear Calc 81.73, Est GFR (MDRD) Af Amer 100, Est GFR (MDRD) Non-Af 82, BUN/Creatinine Ratio 37.8 H, Glucose 162 H, Calcium 8.8 Current Medications Acetaminophen (Tylenol Liquid) 650 mg NG Q6H PRN PRN PRN Reason: Pain Score 1-10/Temp > 100.7 F Last Admin: 07/24/19 21:39 Dose: 650 mg Documented by: Albuterol Sulfate (Ventolin Aerosols) 2.5 mg INHALATION Q2H PRN PRN PRN Reason: SOB &/OR WHEEZING Last Admin: 07/23/19 23:56 Dose: 2.5 mg Documented by: Bisacodyl (Dulcolax) 10 mg RECTAL DAILY PRN PRN Reason: Constipation Chlorhexidine Gluconate () 15 ml PO BID [facility] Last Admin: 07/25/19 08:33 Dose: 15 ml Documented by: Chlorhexidine Gluconate () 1 each TOPICAL DAILY [facility] Last Admin: 07/25/19 08:32 Dose: 1 each Documented by: Hydroxychloroquine Sulfate 200 mg/ Compound Med 4 ml/Compound Med 4 ml mg GT BID [facility] Stop: 07/25/19 22:01 Last Admin: 07/25/19 08:28 Dose: 8 ml Documented by: Enoxaparin Sodium (Lovenox) 40 mg SC DAILY [facility] Last Admin: 07/25/19 08:28 Dose: 40 mg Documented by: Famotidine (Pepcid) 40 mg GT DAILY [facility] Last Admin: 07/25/19 08:28 Dose: 40 mg Documented by: Furosemide (Lasix) 40 mg IV BID@1000,1800 [facility] Last Admin: 07/25/19 08:27 Dose: 40 mg Documented by: Guaifenesin (Robitussin) 10 ml GT Q6H [facility] Last Admin: 07/25/19 08:28 Dose: 10 ml Documented by: Fentanyl () 100 mls @ 2.5 mls/hr IV UD [facility]; Protocol Last Admin: 07/25/19 08:00 Dose: 100 mcg/hr, 10 mls/hr Documented by: Propofol (Diprivan) 1,000 mg in 100 mls @ 5.904 mls/hr CONT INF .Q12H [facility]; Protocol Last Titration: 07/25/19 07:00 Dose: 15 mcg/kg/min, 8.9 mls/hr Documented by: Sodium Chloride () 250 mls @ 15 mls/hr IV .[id number] PRN PRN Reason: Saline Flush Last Infusion: 07/24/19 00:13 Dose: Infused Documented by: Sodium Chloride () 250 mls @ 15 mls/hr IV .[id number] PRN PRN Reason: Additional IVPB Infusion Last Infusion: 07/23/19 16:06 Dose: Infused Documented by: Enteral Nutritional Formula (Vital Af 1.2 [place] Liquid) 1,000 mls @ 65 mls/hr GT .[id number] [facility] Last Admin: 07/25/19 00:30 Dose: 65 mls/hr Documented by: Azithromycin 500 mg/ Dextrose 255 mls @ 250 mls/hr IV Q24 [facility] Stop: 07/25/19 11:02 Last Infusion: 07/24/19 12:32 Dose: Infused Documented by: Ceftriaxone Sodium 2 gm/ (Sodium Chloride) 50 mls @ 100 mls/hr IV Q24 [facility] Stop: 07/25/19 10:29 Last Infusion: 07/24/19 11:00 Dose: Infused Documented by: Potassium Chloride () 10 meq in 100 mls @ 100 mls/hr IV BOLUS Q1H [facility] Stop: 07/25/19 10:59 Last Admin: 07/25/19 09:30 Dose: 100 mls/hr Documented by: Ondansetron HCl (Zofran) 4 mg IV Q8H PRN PRN PRN Reason: NAUSEA/VOMITING Senna/Docusate Sodium (Senokot-S, Arlette-Colace) 2 tablet GT BID [facility] Last Admin: 07/25/19 08:28 Dose: Not Given Documented by: Sodium Chloride () 10 - 40 ml IV UD PRN PRN Reason: SALINE FLUSH Last Admin: 07/24/19 17:53 Dose: 10 ml Documented by: STROKE Vital Signs/Narrative: Vital Signs Temp Pulse Resp BP Pulse Ox 07/25/19 08:00 99.4 F H 76 27 H 125/77 H 91 07/25/19 07:07 69 24 H 93 07/25/19 07:00 99.5 F H 70 28 H 112/77 92 07/25/19 06:00 99.5 F H 77 26 H 112/80 93 Medical Necessity - Tobacco Use Smoking Status: Never smoker Assessment/Plan All Active Problems (Last Reviewed 04/01/17 @ 13:34 by Leandra Duarte) COVID-19 (Acute) ARDS (adult respiratory distress syndrome) (Acute) Sepsis (Acute) Acute respiratory failure with hypoxia (Acute) Bilateral pneumonia (Acute) 1. Acute hypoxic respiratory failure secondary to ARDS from COVID-19 pneumonia/sepsis -intubated. FiO2 is at 65%, he is also on fentanyl and propofol though he is alert and able to communicate via writing -He is on Rocephin and azithromycin as well as Plaquenil -We will continue with Lasix twice daily since he is almost 5 L positive -Culture data is negative for any coinfection DVT: Lovenox Inpatient E&M: [id number] Subs Hosp L2
--- NOTE | 2019-07-25 10:48 | PCM.PN.ID ---
Patient Problems: Active and Suspected Problems (Last Reviewed 04/01/17 @ 13:34 by Leandra Duarte) ARDS (adult respiratory distress syndrome) (Acute) Acute respiratory failure with hypoxia (Acute) Bilateral pneumonia (Acute) Subjective: Feeling ok, some dyspnea, mild cough, still with fever - Physical Exam Vitals/I&O's: Vital Signs Temp Pulse Resp BP Pulse Ox 99.4 F H 72 26 H 117/86 H 90 07/25/19 08:00 07/25/19 09:00 07/25/19 09:00 07/25/19 09:00 07/25/19 09:00 Oxygen Flow Rate (L/min) 45 Oxygen Delivery Method Mechanical Ventilator Weight: 96.6 kg Body Mass Index (BMI) 31.1 Intake and Output for Last 24 Hours 07/23/19 07/24/19 07/25/19 23:59 23:59 23:59 Intake Total 3504.65 / 3532.25 2830.43 / 3380.33 1860.90 / 1860.90 Output Total 2049 / 2049 2600 / 4000 1750 / 1750 Balance 1454.65 / 1482.25 230.43 / -619.67 110.90 / 110.90 General: Alert, Cooperative, No apparent distress Lungs: Rhonchi - mild Cardiovascular: Regular rate, Regular Rhythm Abdomen: Soft, Non Tender, Non-Distended Skin: No rashes Microbiology Past 72 Hours 07/19/19 16:15 Blood Culture (Wb) - Left Forearm Blood Culture - Final No growth in 5 days. 07/19/19 16:06 Blood Culture (Wb) - Anticubital Right Blood Culture - Final No growth in 5 days. 07/23/19 16:20 Sputum, Induced/Lukens Gram Stain - Final 07/23/19 16:20 Sputum, Induced/Lukens Respiratory Culture - Preliminary Appears to be normal respiratory lesli. Further studies to follow. 07/19/19 18:13 Urine, Clean Catch Urine Culture - Final Culture exhibits no growth. Laboratory Results 07/19/19 18:40: COVID-19 (JESSICA) Detected 07/25/19 05:15: WBC 8.7, RBC 4.11 L, Hgb 12.0 L, Hct 35.9 L, MCV 87.3, MCH 29.2, MCHC 33.4, RDW Std Deviation 40.7, RDW Coeff of David 12.7, Plt Count 385, MPV 11.9, Immature Gran % (Auto) 3.700 H, Neut % (Auto) 61.3, Lymph % (Auto) 18.3 L, [place] % (Auto) 11.2 H, Eos % (Auto) 4.9, Baso % (Auto) 0.6, Absolute Neuts (auto) 5.3, Absolute Lymphs (auto) 1.58, Nucleated RBC % 0 07/25/19 05:15: Sodium 141, Potassium 3.4 L, Chloride 103, Carbon Dioxide 32.0, Anion Gap 6, BUN 37 H, Creatinine 0.98, Estim Creat Clear Calc 81.73, Est GFR (MDRD) Af Amer 100, Est GFR (MDRD) Non-Af 82, BUN/Creatinine Ratio 37.8 H, Glucose 162 H, Calcium 8.8 Current Medications Acetaminophen (Tylenol Liquid) 650 mg NG Q6H PRN PRN PRN Reason: Pain Score 1-10/Temp > 100.7 F Last Admin: 07/24/19 21:39 Dose: 650 mg Documented by: Albuterol Sulfate (Ventolin Aerosols) 2.5 mg INHALATION Q2H PRN PRN PRN Reason: SOB &/OR WHEEZING Last Admin: 07/23/19 23:56 Dose: 2.5 mg Documented by: Bisacodyl (Dulcolax) 10 mg RECTAL DAILY PRN PRN Reason: Constipation Chlorhexidine Gluconate () 15 ml PO BID [facility] Last Admin: 07/25/19 08:33 Dose: 15 ml Documented by: Chlorhexidine Gluconate () 1 each TOPICAL DAILY [facility] Last Admin: 07/25/19 08:32 Dose: 1 each Documented by: Hydroxychloroquine Sulfate 200 mg/ Compound Med 4 ml/Compound Med 4 ml mg GT BID [facility] Stop: 07/25/19 22:01 Last Admin: 07/25/19 08:28 Dose: 8 ml Documented by: Enoxaparin Sodium (Lovenox) 40 mg SC DAILY [facility] Last Admin: 07/25/19 08:28 Dose: 40 mg Documented by: Famotidine (Pepcid) 40 mg GT DAILY [facility] Last Admin: 07/25/19 08:28 Dose: 40 mg Documented by: Furosemide (Lasix) 40 mg IV BID@1000,1800 [facility] Last Admin: 07/25/19 08:27 Dose: 40 mg Documented by: Guaifenesin (Robitussin) 10 ml GT Q6H [facility] Last Admin: 07/25/19 08:28 Dose: 10 ml Documented by: Fentanyl () 100 mls @ 2.5 mls/hr IV UD [facility]; Protocol Last Admin: 07/25/19 08:00 Dose: 100 mcg/hr, 10 mls/hr Documented by: Propofol (Diprivan) 1,000 mg in 100 mls @ 5.904 mls/hr CONT INF .Q12H [facility]; Protocol Last Titration: 07/25/19 07:00 Dose: 15 mcg/kg/min, 8.9 mls/hr Documented by: Sodium Chloride () 250 mls @ 15 mls/hr IV .[id number] PRN PRN Reason: Saline Flush Last Infusion: 07/24/19 00:13 Dose: Infused Documented by: Sodium Chloride () 250 mls @ 15 mls/hr IV .[id number] PRN PRN Reason: Additional IVPB Infusion Last Infusion: 07/23/19 16:06 Dose: Infused Documented by: Enteral Nutritional Formula (Vital Af 1.2 [place] Liquid) 1,000 mls @ 65 mls/hr GT .[id number] [facility] Last Admin: 07/25/19 00:30 Dose: 65 mls/hr Documented by: Azithromycin 500 mg/ Dextrose 255 mls @ 250 mls/hr IV Q24 [facility] Stop: 07/25/19 11:02 Last Infusion: 07/24/19 12:32 Dose: Infused Documented by: Potassium Chloride () 10 meq in 100 mls @ 100 mls/hr IV BOLUS Q1H [facility] Stop: 07/25/19 10:59 Last Admin: 07/25/19 09:30 Dose: 100 mls/hr Documented by: Ondansetron HCl (Zofran) 4 mg IV Q8H PRN PRN PRN Reason: NAUSEA/VOMITING Senna/Docusate Sodium (Senokot-S, Arlette-Colace) 2 tablet GT BID [facility] Last Admin: 07/25/19 08:28 Dose: Not Given Documented by: Sodium Chloride () 10 - 40 ml IV UD PRN PRN Reason: SALINE FLUSH Last Admin: 07/24/19 17:53 Dose: 10 ml Documented by: Medical Necessity - Tobacco Use Smoking Status: Never smoker Route of nutrition/ use of supplements: [] Nutritional Intake: [] IV Site: [] [place] Catheter: [] - Assessment/Plan Antibiotics: [] Assessment/Plan: [] Active and Suspected Problems (Last Reviewed 04/01/17 @ 13:34 by Leandra Duarte) Suspected 2019 novel coronavirus infection (Acute) ARDS (adult respiratory distress syndrome) (Acute) Sepsis (Acute) Acute respiratory failure with hypoxia (Acute) Bilateral pneumonia (Acute) Acute hypoxic resp failure with sepsis - covid (+). Wbc normal now, still having fever. Resp pcr panel was neg. /3 started empiric 5 day course of azithro/plaquenil due to high suspicion for COVID. Monitoring qtc. On ceftriaxone. Completes abx today. Will follow, d/w Dr. Masterson
[2019-07-25] MEDS: Propofol 10MG/Ml 1,000 MG/100 ML Bottle 8.9 MG CONT INF ×2 (13:00→19:45)
[2019-07-25] MEDS: Acetaminophen 650 MG/20 ML UDC NG (16:36)
[2019-07-25] MEDS: Senna/Docusate Sodium 1 Tablet 2 TABLET GT (21:11)
[2019-07-25] MEDS: 0.9% Saline Lock 10 ML Syringe IV (21:23)
[2019-07-26] VITALS (37 sets, daily range): BP systolic 94–150; BP diastolic 61–95; PULSE 69–83; RESP 16–29; TEMP 37.2–38.2; O2SAT 90–95
[2019-07-26] MEDS: guaiFENesin 10 ML UDC (200MG/10ML) GT ×4 (04:00→21:11)
[2019-07-26] MEDS: Propofol 10MG/Ml 1,000 MG/100 ML Bottle 8.9 MG CONT INF (04:10)
[2019-07-26] MEDS: fentaNYL drip 100 ML 10 MCG IV ×2 (04:10→12:00)
[2019-07-26] MEDS: Vital AF 1.2 Cal Liquid 1,000 ML 65 ML GT ×2 (04:15→16:55)
[2019-07-26 04:18] LABS: Absolute Lymphocyte Count 1.46 X10^3/uL (0.83-4.51); Absolute Neutrophil Count 4.7 X10^3/uL (2.0-7.7); Basophil# 0.05 X10^3/uL; Basophil% 0.6 % (0-1); Eosinophil# 0.44 X10^3/uL; Eosinophils% 5.7 % (0-5); Hematocrit 36.5 % (40-54); Hemoglobin 12.4 g/dL (13.0-16.5); Lymphocyte # 1.46 X10^3/ul (4.0); Lymphocyte % 18.8 % (19-41); Mean Corpuscular Hgb 29.9 pg (27.0-32.0); Mean Platelet Vol. 11.2 fl (6.2-12.0); Monocyte# 0.85 X10^3/uL; NRBC Flagged by Analyzer 0 % (0-5); Neutrophil # 4.69 X10^3/uL (2.7-7.7); Neutrophil % 60.5 % (47-70); Platelet Count 398 K/mm3 (150-450); RBC Distribution Width CV 12.6 % (11.6-14.6); RBC Distribution Width SD 40.5 fl (35.1-43.9); Red Blood Count 4.15 M/mm3 (4.6-6.2); White Blood Count 7.8 K/mm3 (4.4-11.0)
[2019-07-26 04:30] LABS: Anion Gap 4 (5-15); BUN 42 mg/dL (7-18); BUN/Creat Ratio 44.7 RATIO (10-20); Calcium,Total 8.9 mg/dL (8.5-10.1); Chloride 102 mmol/L (98-107); Creatinine, Serum 0.94 mg/dL (0.70-1.30); EST Glomerular Filtration Rate 87 mL/min (>60); Est Glom Filt Rate - Afr Amer 105 mL/min (>60); Estimated Creatinine Clearance 85.21 ml/min; Glucose 161 mg/dL (74-106); Potassium 3.6 mmol/L (3.5-5.1); Sodium Level 139 mmol/L (136-145)
[2019-07-26] MEDS: CHLORHEXIDINE GLUC 2% CLOTH 1 EACH TOWELETTE TOPICAL (04:30)
--- NOTE | 2019-07-26 04:48 | RAD_ITS ---
STUDY: X-RAY CHEST REASON FOR EXAM: Male, 63 years old. Respiratory failure -- covid TECHNIQUE: Single AP portable view of the chest. COMPARISON: Comparison is made with prior examination dated July 23, 2019. FINDINGS: An endotracheal tube is in situ. The tip is at 3 cm proximal to the jena. EKG electrodes are seen. Since prior study, there has been progressive infiltrates in the peripheral aspects of both lungs. There is no demonstrated pleural abnormality. Normal size heart. Normal mediastinum and jose. Normal visualized pulmonary arteries. Normal visualized aortic arch and descending thoracic aorta. There are degenerative changes of the visualized thoracic spine. Normal visualized ribs, clavicles, and shoulders. There is no demonstrated abnormality of the visualized soft tissue structures of the upper abdomen. RAD/Chest 1 View (Portable) IMPRESSION: The endotracheal tube is at the 3 cm proximal to the jena. Since prior study, there has been progressive bilateral peripheral based infiltrates. Electronically Signed: Lambert Cason, at 8:16 EDT , Service support ,
--- NOTE | 2019-07-26 06:10 | PN_ITS ---
Subjective: The patient was seen and examined at the bedside this morning. Events from the last 24 hours have been reviewed. The patient continues to have low-grade fevers. He remains hemodynamically stable. The patient remains on assist control mode of mechanical ventilation with an FiO2 requirement of 65% and PEEP of 12. Repeat arterial blood gas from this morning revealed a pH of 7.49, PCO2 of 44 and PO2 of 73. Oxygen saturation was 95%. Repeat chest x-ray from this morning continues to demonstrate significant bilateral airspace disease. The adriana wright completed his treatment course of antimicrobials and Plaquenil yesterday. He continues to tolerate tube feeds. The patient's Lasix was discontinued this morning due to rising serum bicarbonate level. Objective: The patient's most recent lab work, culture data and imaging studies have all been personally reviewed. Blood and urine cultures have shown no growth to date. Respiratory viral panel was negative. Sputum culture was negative. Coronavirus RNA was detected on July 20. General: - - Remains intubated and mechanically ventilated. No ventilator synchrony. Patient appears quite comfortable sitting upright in bed. HEENT: Atraumatic, Normocephalic Oral: Moist Mucosa, - - Endotracheal and OG tubes in place Neck: Supple, No Nodes, Trachea Midline Lungs: No rhonchi, No wheeze, No rales, Diminished Cardiovascular: Regular rate, Regular Rhythm, Normal S1, Normal S2, No murmurs Abdomen: Bowel Sounds Present, Soft, Non Tender Extremities: No clubbing, No cyanosis Skin: No breakdown Musculoskeletal: No Muscle Wasting Lymphatic: No Cervical, Supraclavicular, or Inguinal Adenopathy Neurological: - - No focal neurological deficits. Moves extremities spontaneously. Alert and interactive. Vital Signs Temp Pulse Resp BP Pulse Ox 100.5 F H 76 24 H 116/77 93 07/26/19 03:00 07/26/19 03:00 07/26/19 03:00 07/26/19 03:00 07/26/19 03:00 Oxygen Flow Rate (L/min) 45 Oxygen Delivery Method Mechanical Ventilator Weight: 212 lb 1.355 oz Body Mass Index (BMI) 31.1 Intake and Output for Last 24 Hours 07/24/19 07/25/19 07/26/19 23:59 23:59 23:59 Intake Total 2830.43 / 3380.33 4403.31 / 4422.21 75.6 / 75.6 Output Total 2600 / 4000 19251 / 86255 Balance 230.43 / -619.67 -6096.69 / -6077.79 75.6 / 75.6 Labs (Last 48 Hours) 07/19/19 07/24/19 07/24/19 18:40 08:25 08:25 WBC 10.3 RBC 3.95 L Hgb 11.7 L Hct 34.4 L MCV 87.1 MCH 29.6 MCHC 34.0 RDW Std Deviation 40.3 RDW Coeff of David 12.7 Plt Count 322 MPV 12.3 H Immature Gran % (Auto) 2.800 H Neut % (Auto) 70.1 H Lymph % (Auto) 13.2 L [place] % (Auto) 9.6 Eos % (Auto) 3.8 Baso % (Auto) 0.5 Absolute Neuts (auto) 7.2 Absolute Lymphs (auto) 1.35 Nucleated RBC % 0 Sodium Potassium Chloride Carbon Dioxide Anion Gap BUN Creatinine Estim Creat Clear Calc Est GFR (MDRD) Af Amer Est GFR (MDRD) Non-Af BUN/Creatinine Ratio Glucose Calcium Phosphorus Magnesium B-Natriuretic Peptide 19.8 COVID-19 (JESSICA) Detected 07/24/19 07/25/19 07/25/19 08:25 05:15 05:15 WBC 8.7 RBC 4.11 L Hgb 12.0 L Hct 35.9 L MCV 87.3 MCH 29.2 MCHC 33.4 RDW Std Deviation 40.7 RDW Coeff of David 12.7 Plt Count 385 MPV 11.9 Immature Gran % (Auto) 3.700 H Neut % (Auto) 61.3 Lymph % (Auto) 18.3 L [place] % (Auto) 11.2 H Eos % (Auto) 4.9 Baso % (Auto) 0.6 Absolute Neuts (auto) 5.3 Absolute Lymphs (auto) 1.58 Nucleated RBC % 0 Sodium 140 141 Potassium 3.7 3.4 L Chloride 106 103 Carbon Dioxide 28.0 32.0 Anion Gap 6 6 BUN 33 H 37 H Creatinine 1.00 0.98 Estim Creat Clear Calc 80.10 81.73 Est GFR (MDRD) Af Amer 98 100 Est GFR (MDRD) Non-Af 81 82 BUN/Creatinine Ratio 33.1 H 37.8 H Glucose 178 H 162 H Calcium 8.5 8.8 Phosphorus 3.0 Magnesium 2.5 B-Natriuretic Peptide COVID-19 (JESSICA) 07/26/19 07/26/19 04:10 04:10 WBC 7.8 RBC 4.15 L Hgb 12.4 L Hct 36.5 L MCV 88.0 MCH 29.9 MCHC 34.0 RDW Std Deviation 40.5 RDW Coeff of David 12.6 Plt Count 398 MPV 11.2 Immature Gran % (Auto) 3.400 H Neut % (Auto) 60.5 Lymph % (Auto) 18.8 L [place] % (Auto) 11.0 H Eos % (Auto) 5.7 H Baso % (Auto) 0.6 Absolute Neuts (auto) 4.7 Absolute Lymphs (auto) 1.46 Nucleated RBC % 0 Sodium 139 Potassium 3.6 Chloride 102 Carbon Dioxide 33.0 H Anion Gap 4 L BUN 42 H Creatinine 0.94 Estim Creat Clear Calc 85.21 Est GFR (MDRD) Af Amer 105 Est GFR (MDRD) Non-Af 87 BUN/Creatinine Ratio 44.7 H Glucose 161 H Calcium 8.9 Phosphorus Magnesium B-Natriuretic Peptide COVID-19 (JESSICA) Microbiology 07/19/19 16:15 Blood Culture (Wb) - Left Forearm Blood Culture - Final No growth in 5 days. 07/19/19 16:06 Blood Culture (Wb) - Anticubital Right Blood Culture - Final No growth in 5 days. 07/23/19 16:20 Sputum, Induced/Lukens Gram Stain - Final 07/23/19 16:20 Sputum, Induced/Lukens Respiratory Culture - Preliminary Appears to be normal respiratory lesli. Further studies to follow. Clinical Impression(s) from Imaging Studies Chest X-Ray 07/19/19 16:23 IMPRESSION: Thickening multifocal bilateral pulmonary opacities most consistent with acute infection. Electronically Signed: Damaso Parra, at 17:44 EDT Tel , Service support , Chest X-Ray 07/19/19 17:20 IMPRESSION: Endotracheal tube tip is in the midthoracic trachea. Enteric tube tip is in the stomach. Similar-appearing multifocal pulmonary opacities bilaterally. Electronically Signed: Damaso Parra at 17:49 EDT Tel , Service support , Chest X-Ray 07/23/19 08:39 IMPRESSION: Similar appearance of patchy airspace disease within the bilateral lung parenchyma with no evidence of new focal consolidation. Electronically Signed: Shaheen Rosado, DO at 10:39 EDT , Service support , Medical Necessity - Tobacco Use Smoking Status: Never smoker Assessment/Plan All Active Problems (Last Reviewed 04/01/17 @ 13:34 by Leandra Duarte) COVID-19 (Acute) ARDS (adult respiratory distress syndrome) (Acute) Sepsis (Acute) Acute respiratory failure with hypoxia (Acute) Bilateral pneumonia (Acute) RECOMMENDATIONS: 1. Stop Lasix over concerns for contraction alkalosis. 2. Obtain repeat arterial blood gas and plain film chest x-ray. 3. Continue tube feeds as tolerated. 4. Continue lung protective ventilatory strategy. Wean FiO2 and PEEP to maintain oxygen saturations at or above 90%. 5. Continue appropriate ICU prophylaxis. IMPRESSIONS: 1. Acute hypoxemic respiratory failure secondary to ARDS due to COVID 19 Infection Continue current supportive measures with invasive mechanical ventilatory support, employing a lung protective strategy. The patient has now completed a 5-day course of azithromycin, ceftriaxone and Plaquenil. Infectious diseases is currently following. Lasix has been discontinued due to what appears to be the development of a contraction alkalosis. Wean FiO2 and PEEP to maintain oxygen saturations at or above 90%. Continue propofol and fentanyl for sedation, along with tube feeds as tolerated. 2. Chronic pain syndrome/obesity Complicates care, management, recovery and prognosis. TIME: 37 minutes of critical care time, independent of procedures, was spent addressin g the patient's acute hypoxemic respiratory failure, ARDS secondary to coronavirus infection, review of all data and collaboration with the care team. [id number]) [phone]: [id number] Critical care first hour
[2019-07-26 06:33] LABS: CPK Total, Creatine Kinase 21 U/L (39-308); Triglycerides 155 mg/dL
[2019-07-26] MEDS: TITRATION PARAMETER CHANGE 1 EACH IV (07:06)
[2019-07-26 08:46] LABS: Base Excess 11 mmol/L (-2 to +2); Bicarbonate 33.8 mmol/L (22-26); PO2 73 mmHG (75-100); SO2 95 % (95-99); Total Carbon Dioxide 35 mmol/L; pCO2 44.1 mmHg (35-45); pH 7.49 (7.35-7.45)
--- NOTE | 2019-07-26 09:40 | CASEMGMT ---
MELISA IBRAHIM Note: Participated in ICU interdisciplinary rounds. Pt remains intubated, on ventilator. Failed mobility for today, PT/OT to resume when medically stable. DC planning deferred at this time. Mariana YARBROUGHN MELISA CM
[2019-07-26] MEDS: Chlorhexidine 15 ML PO ×2 (10:42→21:14)
[2019-07-26] MEDS: Enoxaparin 40 MG/0.4 ML Syringe SC (10:42)
[2019-07-26] MEDS: Famotidine 20 MG Tablet 40 MG GT (10:43)
[2019-07-26] MEDS: Senna/Docusate Sodium 1 Tablet 2 TABLET GT ×2 (10:43→21:11)
[2019-07-26 10:56] LABS: Allen Test POS; Blood Gas Specimen Type ART; Mode A-C; O2 Delivery Device Vent; SITE L RADIAL
[2019-07-26 10:57] LABS: FI02 70; PEEP 12; RR 16; Time Given 725; Vt 450
[2019-07-26] MEDS: Propofol 10MG/Ml 1,000 MG/100 ML Bottle 8.7 MG CONT INF ×2 (12:00→19:00)
--- NOTE | 2019-07-26 12:30 | PCM.PN.HOSP ---
Patient Problems: Active and Suspected Problems (Last Reviewed 04/01/17 @ 13:34 by Leandra Duarte) ARDS (adult respiratory distress syndrome) (Acute) Acute respiratory failure with hypoxia (Acute) Bilateral pneumonia (Acute) Subjective: Much the same, continues to be intubated and had to have his PEEP and FiO2 increased yesterday. Vitals/I&O's: Vital Signs Temp Pulse Resp BP Pulse Ox 99.0 F 69 16 128/74 H 94 07/26/19 12:00 07/26/19 12:00 07/26/19 12:00 07/26/19 12:00 07/26/19 12:00 Oxygen Flow Rate (L/min) 45 Oxygen Delivery Method Mechanical Ventilator Weight: 212 lb 1.355 oz Body Mass Index (BMI) 31.1 Intake and Output for Last 24 Hours 07/24/19 07/25/19 07/26/19 23:59 23:59 23:59 Intake Total 2830.43 / 3380.33 4403.31 / 4422.21 646.93 / 646.93 Output Total 2600 / 4000 50853 / 68975 350 / 350 Balance 230.43 / -619.67 -6096.69 / -6077.79 296.93 / 296.93 General: Alert, Oriented x3, Cooperative, No apparent distress, - - Intubated HEENT: Atraumatic, PERRLA, EOMI, Normocephalic Oral: Moist Mucosa Neck: Supple, No JVD Lungs: No rhonchi, No wheeze, No rales, Diminished Cardiovascular: Regular rate, Regular Rhythm, Normal S1, Normal S2, No murmurs Abdomen: Soft, Non Tender, Non-Distended, No Hepato-splenomegaly Extremities: No edema, Capillary Refill Less than 3 Seconds Skin: No rashes, No breakdown Neurological: Neuro grossly intact, Sensory exam intact to light touch and pain, - - Intubated but not sedated Psych/Mental Status: Normal Affect, Appropriate Microbiology Past 72 Hours 07/23/19 16:20 Sputum, Induced/Lukens Gram Stain - Final 07/23/19 16:20 Sputum, Induced/Lukens Respiratory Culture - Final 07/19/19 16:15 Blood Culture (Wb) - Left Forearm Blood Culture - Final No growth in 5 days. 07/19/19 16:06 Blood Culture (Wb) - Anticubital Right Blood Culture - Final No growth in 5 days. Laboratory Results 07/26/19 04:10: WBC 7.8, RBC 4.15 L, Hgb 12.4 L, Hct 36.5 L, MCV 88.0, MCH 29.9, MCHC 34.0, RDW Std Deviation 40.5, RDW Coeff of David 12.6, Plt Count 398, MPV 11.2, Immature Gran % (Auto) 3.400 H, Neut % (Auto) 60.5, Lymph % (Auto) 18.8 L, [place] % (Auto) 11.0 H, Eos % (Auto) 5.7 H, Baso % (Auto) 0.6, Absolute Neuts (auto) 4.7, Absolute Lymphs (auto) 1.46, Nucleated RBC % 0 07/26/19 04:10: Sodium 139, Potassium 3.6, Chloride 102, Carbon Dioxide 33.0 H, Anion Gap 4 L, BUN 42 H, Creatinine 0.94, Estim Creat Clear Calc 85.21, Est GFR (MDRD) Af Amer 105, Est GFR (MDRD) Non-Af 87, BUN/Creatinine Ratio 44.7 H, Glucose 161 H, Calcium 8.9 07/26/19 04:10: Total Creatine Kinase 21 L, Triglycerides 155 07/26/19 07:25: Specimen Type ART, Sample Site L RADIAL, pH 7.49 H, Bicarbonate Actual 33.8 H, POC Total CO2 35, Base Excess 11 H, O2 Saturation 95, O2 % 70, ABG pCO2 44.1, ABG pO2 73 L, Test POS, Respiration Rate 16, O2 Delivery Device Vent, Vent Mode A-C, Tidal Volume 450, POC PEEP 12, Blood Gas Notified Whom ICU MD, Blood Gas Notified Time 725 Current Medications Acetaminophen (Tylenol Liquid) 650 mg NG Q6H PRN PRN PRN Reason: Pain Score 1-10/Temp > 100.7 F Last Admin: 07/25/19 16:36 Dose: 650 mg Documented by: Albuterol Sulfate (Ventolin Aerosols) 2.5 mg INHALATION Q2H PRN PRN PRN Reason: SOB &/OR WHEEZING Last Admin: 07/23/19 23:56 Dose: 2.5 mg Documented by: Bisacodyl (Dulcolax) 10 mg RECTAL DAILY PRN PRN Reason: Constipation Chlorhexidine Gluconate () 15 ml PO BID [facility] Last Admin: 07/26/19 10:42 Dose: 15 ml Documented by: Chlorhexidine Gluconate () 1 each TOPICAL DAILY [facility] Last Admin: 07/26/19 04:30 Dose: 1 each Documented by: Enoxaparin Sodium (Lovenox) 40 mg SC DAILY [facility] Last Admin: 07/26/19 10:42 Dose: 40 mg Documented by: Famotidine (Pepcid) 40 mg GT DAILY [facility] Last Admin: 07/26/19 10:43 Dose: 40 mg Documented by: Guaifenesin (Robitussin) 10 ml GT Q6H [facility] Last Admin: 07/26/19 10:43 Dose: 10 ml Documented by: Fentanyl () 100 mls @ 2.5 mls/hr IV UD [facility]; Protocol Last Titration: 07/26/19 09:00 Dose: 100 mcg/hr, 10 mls/hr Documented by: Propofol (Diprivan) 1,000 mg in 100 mls @ 5.772 mls/hr CONT INF .Q12H [facility]; Protocol Last Titration: 07/26/19 09:00 Dose: 15 mcg/kg/min, 8.7 mls/hr Documented by: Sodium Chloride () 250 mls @ 15 mls/hr IV .[id number] PRN PRN Reason: Saline Flush Last Infusion: 07/24/19 00:13 Dose: Infused Documented by: Sodium Chloride () 250 mls @ 15 mls/hr IV .[id number] PRN PRN Reason: Additional IVPB Infusion Last Infusion: 07/23/19 16:06 Dose: Infused Documented by: Enteral Nutritional Formula (Vital Af 1.2 [place] Liquid) 1,000 mls @ 65 mls/hr GT .[id number] [facility] Last Admin: 07/26/19 04:15 Dose: 65 mls/hr Documented by: Ondansetron HCl (Zofran) 4 mg IV Q8H PRN PRN PRN Reason: NAUSEA/VOMITING Senna/Docusate Sodium (Senokot-S, Arlette-Colace) 2 tablet GT BID [facility] Last Admin: 07/26/19 10:43 Dose: 2 tablet Documented by: Sodium Chloride () 10 - 40 ml IV UD PRN PRN Reason: SALINE FLUSH Last Admin: 07/25/19 21:23 Dose: 10 ml Documented by: LYUBOV Vital Signs/Narrative: Vital Signs Temp Pulse Resp BP BP Pulse Ox 07/26/19 12:00 99.0 F 69 16 128/74 H 94 07/26/19 11:26 71 21 H 93 07/26/19 11:00 73 23 H 127/79 H 92 07/26/19 10:00 99.3 F H 73 26 H 132/77 H 92 07/26/19 09:00 99.5 F H 77 16 150/95 H 94 Medical Necessity - Tobacco Use Smoking Status: Never smoker Assessment/Plan All Active Problems (Last Reviewed 04/01/17 @ 13:34 by Leandra Duarte) COVID-19 (Acute) ARDS (adult respiratory distress syndrome) (Acute) Sepsis (Acute) Acute respiratory failure with hypoxia (Acute) Bilateral pneumonia (Acute) 1. Acute hypoxic respiratory failure secondary to ARDS from COVID-19 pneumonia/sepsis -intubated. FiO2 is at 65%, he is also on fentanyl and propofol though he is alert and able to communicate via writing -He has completed 5 days of Plaquenil, Rocephin, azithromycin -We will discontinue his Lasix for an elevation in his bicarb -Culture data is negative for any coinfection DVT: Lovenox Inpatient E&M: [id number] Subs Hosp L2
[2019-07-26] MEDS: 0.9% Saline Lock 10 ML Syringe IV (19:59)
[2019-07-26] MEDS: fentaNYL drip 100 ML 12.5 MCG IV (21:00)
[2019-07-26] MEDS: Acetaminophen 650 MG/20 ML UDC NG (21:14)
[2019-07-27] VITALS (34 sets, daily range): BP systolic 111–145; BP diastolic 71–108; PULSE 68–91; RESP 16–33; TEMP 37.4–38; O2SAT 91–98
[2019-07-27] MEDS: Propofol 10MG/Ml 1,000 MG/100 ML Bottle 14.4 MG CONT INF (00:30)
[2019-07-27] MEDS: guaiFENesin 10 ML UDC (200MG/10ML) GT ×4 (04:23→21:31)
[2019-07-27 04:41] LABS: Absolute Lymphocyte Count 1.76 X10^3/uL (0.83-4.51); Absolute Neutrophil Count 5.2 X10^3/uL (2.0-7.7); Basophil# 0.06 X10^3/uL; Basophil% 0.7 % (0-1); Eosinophil# 0.41 X10^3/uL; Eosinophils% 4.8 % (0-5); Hematocrit 36.6 % (40-54); Hemoglobin 12.2 g/dL (13.0-16.5); Lymphocyte # 1.76 X10^3/ul (4.0); Lymphocyte % 20.5 % (19-41); Mean Corp Hgb Conc 33.3 g/dL (32-36); Mean Corpuscular Hgb 29.2 pg (27.0-32.0); Mean Corpuscular Volume 87.6 fL (80-94); Mean Platelet Vol. 11.1 fl (6.2-12.0); Monocyte% 11.6 % (0-10); NRBC Flagged by Analyzer 0 % (0-5); Neutrophil # 5.16 X10^3/uL (2.7-7.7); Neutrophil % 60.1 % (47-70); Platelet Count 460 K/mm3 (150-450); RBC Distribution Width CV 12.4 % (11.6-14.6); RBC Distribution Width SD 39.8 fl (35.1-43.9); Red Blood Count 4.18 M/mm3 (4.6-6.2); White Blood Count 8.6 K/mm3 (4.4-11.0)
[2019-07-27 04:58] LABS: ALB/GLOB Ratio 0.5 RATIO (0.9-2.4); AST(SGOT) 385 U/L (15-37); Alanine Aminotransfer ALT/SGPT 342 U/L (16-61); Albumin, Serum 2.1 g/dL (3.2-5.0); Alkaline Phosphatase 134 U/L (45-117); Anion Gap 5 (5-15); BUN 38 mg/dL (7-18); BUN/Creat Ratio 42.8 RATIO (10-20); Calcium,Total 8.7 mg/dL (8.5-10.1); Chloride 102 mmol/L (98-107); Creatinine, Serum 0.89 mg/dL (0.70-1.30); EST Glomerular Filtration Rate 92 mL/min (>60); Est Glom Filt Rate - Afr Amer 112 mL/min (>60); Globulin 4.6 g/dL (2.2-4.2); Glucose 138 mg/dL (74-106); Potassium 3.7 mmol/L (3.5-5.1); Protein, Total 6.7 g/dL (6.4-8.2); Sodium Level 140 mmol/L (136-145)
[2019-07-27] MEDS: fentaNYL drip 100 ML 12.5 MCG IV (05:00)
[2019-07-27] MEDS: TITRATION PARAMETER CHANGE 1 EACH IV (05:21)
--- NOTE | 2019-07-27 06:12 | US_ITS ---
STUDY: ABDOMINAL ULTRASOUND - RIGHT UPPER QUADRANT REASON FOR VISIT: Male, 63 years old TRANSAMINITIS LIMITED EXAM - COVID + TECHNIQUE: Ultrasound evaluation of the right upper quadrant was performed with real-time and static shah-scale imaging. TECHNICAL QUALITY: Limited. Examination limited due to the patient?s condition. COMPARISON: None. FINDINGS: Liver: The liver measures 15.9 cm. There is a heterogeneous echogenicity of the liver. The bile ducts are within normal limits. There is hepatic color flow. The direction of portal flow is hepatopetal. There is a 1.4 cm x 1.5 cm x 1.4 cm echogenic nodule in the right lobe suggestive of a small hemangioma. Gallbladder: Normal distended gallbladder. The gallbladder wall is slightly thickened and measures 4.1 mm. There is a negative sonographic Resendiz''s sign. There is no pericholecystic fluid. There are no gallstones. A small amount of sludge is seen within the gallbladder lumen. Common Bile Duct (C.B.D.): The common bile duct measures 4.0 mm. Pancreas: Normal size of the head, body and tail of the pancreas. There is normal echogenicity of the pancreas. There is no demonstrated pancreatic mass or cyst. Right Kidney: Normal size of the right kidney. The right kidney measures 12.2 cm x 4.9 cm x 5.8 cm. Normal renal cortex. The right cortex measures 1.7 cm. There is no demonstrated renal mass or cyst. There is no right hydronephrosis. US/Liver IMPRESSION: Mild heterogeneous echotexture of the hepatic parenchyma. 1.4 cm x 1.5 cm x 1.4 cm echogenic nodule in the central right lobe of the liver suggestive of an hemangioma. Sludge is seen within the gallbladder lumen. Electronically Signed: Lambert Cason, at 10:41 EDT , Service support ,
[2019-07-27 06:33] LABS: Lipase 315 U/L (73-393)
[2019-07-27] MEDS: Propofol 10MG/Ml 1,000 MG/100 ML Bottle 11.4 MG CONT INF ×2 (06:45→15:00)
--- NOTE | 2019-07-27 07:13 | PCM.PN.INT ---
Subjective: The patient was seen and examined at the bedside this morning. Events from the last 24 hours have been reviewed. The patient continues to have low-grade fevers, but remains hemodynamically stable. Ventilator requirements are largely unchanged on assist control with an FiO2 requirement of 60% and PEEP of 10. Chemistry profile from this morning revealed an elevated AST to 385, ALT to 342 and alkaline phosphatase of 134. Lipase was within normal limits. Objective: The patient's most recent lab work, culture data and imaging studies have all been personally reviewed. Blood and urine cultures have shown no growth to date. Respiratory viral panel was negative. Sputum culture was negative. Coronavirus RNA was detected on July 20. General: Alert, No apparent distress, - - Remains intubated and mechanically ventilated. HEENT: Atraumatic, PERRLA, Normocephalic Oral: Moist Mucosa, No Gingival or Mucosal Lesions/ Ulcerations, - - Endotracheal and OG tubes remain in place Neck: Supple, No Nodes, Trachea Midline Lungs: No rhonchi, No wheeze, No rales, Diminished Cardiovascular: Regular rate, Regular Rhythm, Normal S1, Normal S2 Abdomen: Bowel Sounds Present, Soft, Non Tender Extremities: No clubbing, No cyanosis, No edema Skin: No breakdown Musculoskeletal: No Muscle Wasting Lymphatic: No Cervical, Supraclavicular, or Inguinal Adenopathy Neurological: - - No focal neurological deficits. The patient is unrestrained and moves extremities spontaneously. Alert and follows commands. Vital Signs Temp Pulse Resp BP Pulse Ox 99.6 F H 74 25 H 145/98 H 93 07/27/19 07:00 07/27/19 07:00 07/27/19 07:00 07/27/19 07:00 07/27/19 07:00 Oxygen Flow Rate (L/min) 45 Oxygen Delivery Method Mechanical Ventilator Weight: 209 lb 3.499 oz Body Mass Index (BMI) 31.1 Intake and Output for Last 24 Hours 07/25/19 07/26/19 07/27/19 23:59 23:59 23:59 Intake Total 4403.31 / 4422.21 2029.00 / 2155.90 1260.15 / 1260.15 Output Total 49953 / 44871 1300 / 1750 850 / 850 Balance -6096.69 / -6077.79 729.00 / 405.90 410.15 / 410.15 Labs (Last 48 Hours) 07/19/19 07/26/19 07/26/19 18:40 04:10 04:10 WBC 7.8 RBC 4.15 L Hgb 12.4 L Hct 36.5 L MCV 88.0 MCH 29.9 MCHC 34.0 RDW Std Deviation 40.5 RDW Coeff of David 12.6 Plt Count 398 MPV 11.2 Immature Gran % (Auto) 3.400 H Neut % (Auto) 60.5 Lymph % (Auto) 18.8 L [place]comb % (Auto) 11.0 H Eos % (Auto) 5.7 H Baso % (Auto) 0.6 Absolute Neuts (auto) 4.7 Absolute Lymphs (auto) 1.46 Nucleated RBC % 0 Specimen Type Sample Site pH Bicarbonate Actual POC Total CO2 Base Excess O2 Saturation O2 % ABG pCO2 ABG pO2 Test Respiration Rate O2 Delivery Device Vent Mode Tidal Volume POC PEEP Blood Gas Notified Whom Blood Gas Notified Time Sodium 139 Potassium 3.6 Chloride 102 Carbon Dioxide 33.0 H Anion Gap 4 L BUN 42 H Creatinine 0.94 Estim Creat Clear Calc 85.21 Est GFR (MDRD) Af Amer 105 Est GFR (MDRD) Non-Af 87 BUN/Creatinine Ratio 44.7 H Glucose 161 H Calcium 8.9 Total Bilirubin AST ALT Alkaline Phosphatase Total Creatine Kinase Total Protein Albumin Globulin Albumin/Globulin Ratio Triglycerides Lipase COVID-19 (JESSICA) Detected 07/26/19 07/26/19 07/27/19 04:10 07:25 04:30 WBC 8.6 RBC 4.18 L Hgb 12.2 L Hct 36.6 L MCV 87.6 MCH 29.2 MCHC 33.3 RDW Std Deviation 39.8 RDW Coeff of David 12.4 Plt Count 460 H MPV 11.1 Immature Gran % (Auto) 2.300 H Neut % (Auto) 60.1 Lymph % (Auto) 20.5 Lipscomb % (Auto) 11.6 H Eos % (Auto) 4.8 Baso % (Auto) 0.7 Absolute Neuts (auto) 5.2 Absolute Lymphs (auto) 1.76 Nucleated RBC % 0 Specimen Type ART Sample Site L RADIAL pH 7.49 H Bicarbonate Actual 33.8 H POC Total CO2 35 Base Excess 11 H O2 Saturation 95 O2 % 70 ABG pCO2 44.1 ABG pO2 73 L Test POS Respiration Rate 16 O2 Delivery Device Vent Vent Mode A-C Tidal Volume 450 POC PEEP 12 Blood Gas Notified Whom ICU MD Blood Gas Notified Time 725 Sodium Potassium Chloride Carbon Dioxide Anion Gap BUN Creatinine Estim Creat Clear Calc Est GFR (MDRD) Af Amer Est GFR (MDRD) Non-Af BUN/Creatinine Ratio Glucose Calcium Total Bilirubin AST ALT Alkaline Phosphatase Total Creatine Kinase 21 L Total Protein Albumin Globulin Albumin/Globulin Ratio Triglycerides 155 Lipase COVID-19 (JESSICA) 07/27/19 07/27/19 04:30 04:30 WBC RBC Hgb Hct MCV MCH MCHC RDW Std Deviation RDW Coeff of David Plt Count MPV Immature Gran % (Auto) Neut % (Auto) Lymph % (Auto) [place]comb % (Auto) Eos % (Auto) Baso % (Auto) Absolute Neuts (auto) Absolute Lymphs (auto) Nucleated RBC % Specimen Type Sample Site pH Bicarbonate Actual POC Total CO2 Base Excess O2 Saturation O2 % ABG pCO2 ABG pO2 Test Respiration Rate O2 Delivery Device Vent Mode Tidal Volume POC PEEP Blood Gas Notified Whom Blood Gas Notified Time Sodium 140 Potassium 3.7 Chloride 102 Carbon Dioxide 33.0 H Anion Gap 5 BUN 38 H Creatinine 0.89 Estim Creat Clear Calc 90.00 Est GFR (MDRD) Af Amer 112 Est GFR (MDRD) Non-Af 92 BUN/Creatinine Ratio 42.8 H Glucose 138 H Calcium 8.7 Total Bilirubin 0.50 AST 385 H ALT 342 H Alkaline Phosphatase 134 H Total Creatine Kinase Total Protein 6.7 Albumin 2.1 L Globulin 4.6 H Albumin/Globulin Ratio 0.5 L Triglycerides Lipase 315 COVID-19 (JESSICA) Microbiology 07/23/19 16:20 Sputum, Induced/Lukens Gram Stain - Final 07/23/19 16:20 Sputum, Induced/Lukens Respiratory Culture - Final Clinical Impression(s) from Imaging Studies Chest X-Ray 07/19/19 16:23 IMPRESSION: Thickening multifocal bilateral pulmonary opacities most consistent with acute infection. Electronically Signed: Damaso Parra, at 17:44 EDT Tel , Service support , Chest X-Ray 07/19/19 17:20 IMPRESSION: Endotracheal tube tip is in the midthoracic trachea. Enteric tube tip is in the stomach. Similar-appearing multifocal pulmonary opacities bilaterally. Electronically Signed: Damaso Parra, at 17:49 EDT Tel , Service support , Chest X-Ray 07/23/19 08:39 IMPRESSION: Similar appearance of patchy airspace disease within the bilateral lung parenchyma with no evidence of new focal consolidation. Electronically Signed: Shaheen Rosado, at 10:39 EDT , Service support , Chest X-Ray 07/26/19 04:48 IMPRESSION: The endotracheal tube is at the 3 cm proximal to the jena. Since prior study, there has been progressive bilateral peripheral based infiltrates. Electronically Signed: Lambert Cason, at 8:16 EDT , Service support , Medical Necessity - Tobacco Use Smoking Status: Never smoker Assessment/Plan All Active Problems (Last Reviewed 04/01/17 @ 13:34 by Leandra Duarte) COVID-19 (Acute) ARDS (adult respiratory distress syndrome) (Acute) Sepsis (Acute) Acute respiratory failure with hypoxia (Acute) Bilateral pneumonia (Acute) RECOMMENDATIONS: 1. Reposition pulse ox given discoordinate readings. 2. Continue to wean FiO2 and PEEP to maintain oxygen saturations at or above 90%. 3. Continue tube feeds as tolerated. 4. Continue appropriate ICU prophylaxis. 5. Continue propofol and fentanyl for sedation. 6. Obtain liver ultrasound. 7. Physical therapy to work with the patient today. IMPRESSIONS: 1. Acute hypoxemic respiratory failure secondary to ARDS due to COVID 19 Infection Continue current supportive measures with invasive mechanical ventilatory support, employing a lung protective strategy. The patient has now completed a 5-day course of azithromycin, ceftriaxone and Plaquenil. Infectious diseases is currently following. Lasix has been discontinued due to what appears to be the development of a contraction alkalosis. Wean FiO2 and PEEP to maintain oxygen saturations at or above 90%. Continue propofol and fentanyl for sedation, along with tube feeds as tolerated. 2. Chronic pain syndrome/obesity/elevated transaminases of unclear etiology Complicates care, management, recovery and prognosis. Will obtain liver ultrasound today as well. Physical therapy to work with the patient today. TIME: 38 minutes of critical care time, independent of procedures, was spent addressing the patient's acute hypoxemic respiratory failure, ARDS secondary to coronavirus infection, review of all data and collaboration with the care team. [id number]) [phone] [id number] Critical care first hour
[2019-07-27] MEDS: Famotidine 20 MG Tablet 40 MG GT (08:47)
[2019-07-27] MEDS: CHLORHEXIDINE GLUC 2% CLOTH 1 EACH TOWELETTE TOPICAL (08:47)
[2019-07-27] MEDS: Enoxaparin 40 MG/0.4 ML Syringe SC (08:47)
[2019-07-27] MEDS: Chlorhexidine 15 ML PO ×2 (08:48→21:27)
[2019-07-27] MEDS: Vital AF 1.2 Cal Liquid 1,000 ML 65 ML GT (08:48)
[2019-07-27] MEDS: Senna/Docusate Sodium 1 Tablet 2 TABLET GT ×2 (08:49→21:31)
[2019-07-27] MEDS: 0.9% Saline Lock 10 ML Syringe IV (09:00)
--- NOTE | 2019-07-27 10:24 | PCM.PN.ID ---
Patient Problems: Active and Suspected Problems (Last Reviewed 04/01/17 @ 13:34 by Leandra Duarte) ARDS (adult respiratory distress syndrome) (Acute) Acute respiratory failure with hypoxia (Acute) Bilateral pneumonia (Acute) Subjective: Feeling a little better, denies fever, no abd pain - Physical Exam Vitals/I&O's: Vital Signs Temp Pulse Resp BP Pulse Ox 99.6 F H 72 25 H 145/98 H 93 07/27/19 07:00 07/27/19 07:35 07/27/19 07:35 07/27/19 07:00 07/27/19 07:35 Oxygen Flow Rate (L/min) 45 Oxygen Delivery Method Mechanical Ventilator Weight: 94.9 kg Body Mass Index (BMI) 31.1 Intake and Output for Last 24 Hours 07/25/19 07/26/19 07/27/19 23:59 23:59 23:59 Intake Total 4403.31 / 4422.21 2029.00 / 2155.90 1363.00 / 1363.00 Output Total 07122 / 08794 1300 / 1750 850 / 850 Balance -6096.69 / -6077.79 729.00 / 405.90 513.00 / 513.00 General: Alert, Cooperative, No apparent distress Lungs: Rhonchi - faint Cardiovascular: Regular rate, Regular Rhythm Abdomen: Soft, Non Tender, Non-Distended Skin: No rashes Microbiology Past 72 Hours 07/23/19 16:20 Sputum, Induced/Lukens Gram Stain - Final 07/23/19 16:20 Sputum, Induced/Lukens Respiratory Culture - Final 07/19/19 16:15 Blood Culture (Wb) - Left Forearm Blood Culture - Final No growth in 5 days. 07/19/19 16:06 Blood Culture (Wb) - Anticubital Right Blood Culture - Final No growth in 5 days. Laboratory Results 07/26/19 07:25: Specimen Type ART, Sample Site L RADIAL, O2 % 70, Test POS, Respiration Rate 16, O2 Delivery Device Vent, Vent Mode A-C, Tidal Volume 450, POC PEEP 12, Blood Gas Notified Whom ICU MD, Blood Gas Notified Time 725 07/27/19 04:30: WBC 8.6, RBC 4.18 L, Hgb 12.2 L, Hct 36.6 L, MCV 87.6, MCH 29.2, MCHC 33.3, RDW Std Deviation 39.8, RDW Coeff of David 12.4, Plt Count 460 H, MPV 11.1, Immature Gran % (Auto) 2.300 H, Neut % (Auto) 60.1, Lymph % (Auto) 20.5, [place] % (Auto) 11.6 H, Eos % (Auto) 4.8, Baso % (Auto) 0.7, Absolute Neuts (auto) 5.2, Absolute Lymphs (auto) 1.76, Nucleated RBC % 0 07/27/19 04:30: Sodium 140, Potassium 3.7, Chloride 102, Carbon Dioxide 33.0 H, Anion Gap 5, BUN 38 H, Creatinine 0.89, Estim Creat Clear Calc 90.00, Est GFR (MDRD) Af Amer 112, Est GFR (MDRD) Non-Af 92, BUN/Creatinine Ratio 42.8 H, Glucose 138 H, Calcium 8.7, Total Bilirubin 0.50, AST 385 H, ALT 342 H, Alkaline Phosphatase 134 H, Total Protein 6.7, Albumin 2.1 L, Globulin 4.6 H, Albumin/Globulin Ratio 0.5 L 07/27/19 04:30: Lipase 315 Current Medications Acetaminophen (Tylenol Liquid) 650 mg NG Q6H PRN PRN PRN Reason: Pain Score 1-10/Temp > 100.7 F Last Admin: 07/26/19 21:14 Dose: 650 mg Documented by: Albuterol Sulfate (Ventolin Aerosols) 2.5 mg INHALATION Q2H PRN PRN PRN Reason: SOB &/OR WHEEZING Last Admin: 07/23/19 23:56 Dose: 2.5 mg Documented by: Bisacodyl (Dulcolax) 10 mg RECTAL DAILY PRN PRN Reason: Constipation Chlorhexidine Gluconate () 15 ml PO BID [facility] Last Admin: 07/27/19 08:48 Dose: 15 ml Documented by: Chlorhexidine Gluconate () 1 each TOPICAL DAILY [facility] Last Admin: 07/27/19 08:47 Dose: 1 each Documented by: Enoxaparin Sodium (Lovenox) 40 mg SC DAILY [facility] Last Admin: 07/27/19 08:47 Dose: 40 mg Documented by: Famotidine (Pepcid) 40 mg GT DAILY [facility] Last Admin: 07/27/19 08:47 Dose: 40 mg Documented by: Guaifenesin (Robitussin) 10 ml GT Q6H [facility] Last Admin: 07/27/19 08:47 Dose: 10 ml Documented by: Fentanyl () 100 mls @ 2.5 mls/hr IV UD [facility]; Protocol Last Titration: 07/27/19 07:00 Dose: 100 mcg/hr, 10 mls/hr Documented by: Propofol (Diprivan) 1,000 mg in 100 mls @ 5.694 mls/hr CONT INF .Q12H [facility]; Protocol Last Titration: 07/27/19 07:15 Dose: 20 mcg/kg/min, 11.4 mls/hr Documented by: Sodium Chloride () 250 mls @ 15 mls/hr IV .[id number] PRN PRN Reason: Saline Flush Last Infusion: 07/24/19 00:13 Dose: Infused Documented by: Sodium Chloride () 250 mls @ 15 mls/hr IV .[id number] PRN PRN Reason: Additional IVPB Infusion Last Infusion: 07/23/19 16:06 Dose: Infused Documented by: Enteral Nutritional Formula (Vital Af 1.2 [place] Liquid) 1,000 mls @ 65 mls/hr GT .[id number] [facility] Last Admin: 07/27/19 08:48 Dose: 65 mls/hr Documented by: Ondansetron HCl (Zofran) 4 mg IV Q8H PRN PRN PRN Reason: NAUSEA/VOMITING Senna/Docusate Sodium (Senokot-S, Arlette-Colace) 2 tablet GT BID [facility] Last Admin: 07/27/19 08:49 Dose: 2 tablet Documented by: Sodium Chloride () 10 - 40 ml IV UD PRN PRN Reason: SALINE FLUSH Last Admin: 07/27/19 09:00 Dose: 10 ml Documented by: Zinc Sulfate (Zinc Sulfate) 220 mg GT TID [facility] Last Admin: 07/27/19 05:22 Dose: 220 mg Documented by: Medical Necessity - Tobacco Use Smoking Status: Never smoker Route of nutrition/ use of supplements: [] Nutritional Intake: [] IV Site: [] [place] Catheter: [] - Assessment/Plan Antibiotics: [] Assessment/Plan: [] Active and Suspected Problems (Last Reviewed 04/01/17 @ 13:34 by Leandra Duarte) Suspected 2019 novel coronavirus infection (Acute) ARDS (adult respiratory distress syndrome) (Acute) Sepsis (Acute) Acute respiratory failure with hypoxia (Acute) Bilateral pneumonia (Acute) Acute hypoxic resp failure with sepsis - covid (+). Wbc normal now, fever curve improved. Resp pcr panel was neg. / started empiric 5 day course of azithro/plaquenil. Now some transaminitis, possibly related to plaquenil. Liver u/s pending. Fio2 60% today. Will follow, d/w Dr. Mastersno
--- NOTE | 2019-07-27 11:09 | CASEMGMT ---
Participated in interdisciplinary rounds. Pt continues to be intubated. Passes mobility screen and therapy will attempt to see pt later today. Will defer d/c planning at this time and continue to follow. GIORGIO Banegas
[2019-07-27] MEDS: fentaNYL drip 100 ML 10 MCG IV (14:30)
--- NOTE | 2019-07-27 15:18 | PN_ITS ---
Patient Problems: Active and Suspected Problems (Last Reviewed 04/01/17 @ 13:34 by Leandra Duarte) ARDS (adult respiratory distress syndrome) (Acute) Acute respiratory failure with hypoxia (Acute) Bilateral pneumonia (Acute) Subjective: No change from previous, no issues overnight Vitals/I&O's: Vital Signs Temp Pulse Resp BP Pulse Ox 99.7 F H 74 20 H 112/71 94 07/27/19 12:00 07/27/19 15:00 07/27/19 15:00 07/27/19 15:00 07/27/19 15:00 Oxygen Flow Rate (L/min) 45 Oxygen Delivery Method Mechanical Ventilator Weight: 209 lb 3.499 oz Body Mass Index (BMI) 31.1 Intake and Output for Last 24 Hours 07/25/19 07/26/19 07/27/19 23:59 23:59 23:59 Intake Total 4403.31 / 4422.21 2029.00 / 2155.90 2342.35 / 2342.35 Output Total 78195 / 50724 1300 / 1750 1400 / 1400 Balance -6096.69 / -6077.79 729.00 / 405.90 942.35 / 942.35 General: Alert, Oriented x3, Cooperative, No apparent distress, - - Intubated HEENT: Atraumatic, PERRLA, EOMI, Normocephalic Oral: Moist Mucosa Neck: Supple, No JVD Lungs: No rhonchi, No wheeze, No rales, Diminished Cardiovascular: Regular rate, Regular Rhythm, Normal S1, Normal S2, No murmurs Abdomen: Soft, Non Tender, Non-Distended, No Hepato-splenomegaly Extremities: No edema, Capillary Refill Less than 3 Seconds Skin: No rashes, No breakdown Neurological: Neuro grossly intact, Sensory exam intact to light touch and pain, - - Intubated but not sedated Psych/Mental Status: Normal Affect, Appropriate Microbiology Past 72 Hours 07/23/19 16:20 Sputum, Induced/Lukens Gram Stain - Final 07/23/19 16:20 Sputum, Induced/Lukens Respiratory Culture - Final 07/19/19 16:15 Blood Culture (Wb) - Left Forearm Blood Culture - Final No growth in 5 days. 07/19/19 16:06 Blood Culture (Wb) - Anticubital Right Blood Culture - Final No growth in 5 days. Laboratory Results 07/27/19 04:30: WBC 8.6, RBC 4.18 L, Hgb 12.2 L, Hct 36.6 L, MCV 87.6, MCH 29.2, MCHC 33.3, RDW Std Deviation 39.8, RDW Coeff of David 12.4, Plt Count 460 H, MPV 1 1.1, Immature Gran % (Auto) 2.300 H, Neut % (Auto) 60.1, Lymph % (Auto) 20.5, [place] % (Auto) 11.6 H, Eos % (Auto) 4.8, Baso % (Auto) 0.7, Absolute Neuts (auto) 5.2, Absolute Lymphs (auto) 1.76, Nucleated RBC % 0 07/27/19 04:30: Sodium 140, Potassium 3.7, Chloride 102, Carbon Dioxide 33.0 H, Anion Gap 5, BUN 38 H, Creatinine 0.89, Estim Creat Clear Calc 90.00, Est GFR (MDRD) Af Amer 112, Est GFR (MDRD) Non-Af 92, BUN/Creatinine Ratio 42.8 H, Glucose 138 H, Calcium 8.7, Total Bilirubin 0.50, AST 385 H, ALT 342 H, Alkaline Phosphatase 134 H, Total Protein 6.7, Albumin 2.1 L, Globulin 4.6 H, Albumin/Globulin Ratio 0.5 L 07/27/19 04:30: Lipase 315 Current Medications Acetaminophen (Tylenol Liquid) 650 mg NG Q6H PRN PRN PRN Reason: Pain Score 1-10/Temp > 100.7 F Last Admin: 07/26/19 21:14 Dose: 650 mg Documented by: Albuterol Sulfate (Ventolin Aerosols) 2.5 mg INHALATION Q2H PRN PRN PRN Reason: SOB &/OR WHEEZING Last Admin: 07/23/19 23:56 Dose: 2.5 mg Documented by: Bisacodyl (Dulcolax) 10 mg RECTAL DAILY PRN PRN Reason: Constipation Chlorhexidine Gluconate () 15 ml PO BID [facility] Last Admin: 07/27/19 08:48 Dose: 15 ml Documented by: Chlorhexidine Gluconate () 1 each TOPICAL DAILY [facility] Last Admin: 07/27/19 08:47 Dose: 1 each Documented by: Enoxaparin Sodium (Lovenox) 40 mg SC DAILY [facility] Last Admin: 07/27/19 08:47 Dose: 40 mg Documented by: Famotidine (Pepcid) 40 mg GT DAILY [facility] Last Admin: 07/27/19 08:47 Dose: 40 mg Documented by: Guaifenesin (Robitussin) 10 ml GT Q6H [facility] Last Admin: 07/27/19 13:16 Dose: 10 ml Documented by: Fentanyl () 100 mls @ 2.5 mls/hr IV UD [facility]; Protocol Last Titration: 07/27/19 15:00 Dose: 100 mcg/hr, 10 mls/hr Documented by: Propofol (Diprivan) 1,000 mg in 100 mls @ 5.694 mls/hr CONT INF .Q12H [facility]; Protocol Last Admin: 07/27/19 15:00 Dose: 20 mcg/kg/min, 11.4 mls/hr Documented by: Sodium Chloride () 250 mls @ 15 mls/hr IV .[id number] PRN PRN Reason: Saline Flush Last Infusion: 07/24/19 00:13 Dose: Infused Documented by: Sodium Chloride () 250 mls @ 15 mls/hr IV .[id number] PRN PRN Reason: Additional IVPB Infusion Last Infusion: 07/23/19 16:06 Dose: Infused Documented by: Enteral Nutritional Formula (Vital Af 1.2 [place] Liquid) 1,000 mls @ 65 mls/hr GT .[id number] [facility] Last Admin: 07/27/19 08:48 Dose: 65 mls/hr Documented by: Ondansetron HCl (Zofran) 4 mg IV Q8H PRN PRN PRN Reason: NAUSEA/VOMITING Senna/Docusate Sodium (Senokot-S, Arlette-Colace) 2 tablet GT BID [facility] Last Admin: 07/27/19 08:49 Dose: 2 tablet Documented by: Sodium Chloride () 10 - 40 ml IV UD PRN PRN Reason: SALINE FLUSH Last Admin: 07/27/19 09:00 Dose: 10 ml Documented by: Zinc Sulfate (Zinc Sulfate) 220 mg GT TID [facility] Last Admin: 07/27/19 13:16 Dose: 220 mg Documented by: STROKE Vital Signs/Narrative: Vital Signs Temp Pulse Resp BP BP Pulse Ox 07/27/19 15:00 74 20 H 112/71 94 07/27/19 14:00 75 22 H 124/79 H 94 07/27/19 13:00 77 22 H 128/81 H 95 07/27/19 12:50 81 33 H 95 07/27/19 12:00 99.7 F H 81 30 H 132/85 H 94 07/27/19 11:31 74 Medical Necessity - Tobacco Use Smoking Status: Never smoker Assessment/Plan All Active Problems (Last Reviewed 04/01/17 @ 13:34 by Leandra Duarte) COVID-19 (Acute) ARDS (adult respiratory distress syndrome) (Acute) Sepsis (Acute) Acute respiratory failure with hypoxia (Acute) Bilateral pneumonia (Acute) 1. Acute hypoxic respiratory failure secondary to ARDS from COVID-19 pneumonia/sepsis -intubated. FiO2 is at 65%, he is also on fentanyl and propofol though he is alert and able to communicate via writing -He has completed 5 days of Plaquenil, Rocephin, azithromycin -We will discontinue his Lasix for an elevation in his bicarb -Culture data is negative for any coinfection -Transaminitis, liver US obtained this morning is unremarkable DVT: Lovenox Inpatient E&M: [id number] Subs Hosp L2
[2019-07-27] MEDS: Propofol 10MG/Ml 1,000 MG/100 ML Bottle 14.2 MG CONT INF (22:35)
--- NOTE | 2019-07-27 23:26 | CPS ---
FiO2 increased to meet pt.'s oxygenation needs
[2019-07-28] VITALS (34 sets, daily range): BP systolic 106–148; BP diastolic 70–93; PULSE 61–91; RESP 16–39; TEMP 36.3–37.8; O2SAT 90–97
[2019-07-28] MEDS: fentaNYL drip 100 ML 12.5 MCG IV
[2019-07-28] MEDS: guaiFENesin 10 ML UDC (200MG/10ML) GT ×4 (03:23→22:22)
--- NOTE | 2019-07-28 06:30 | PN_ITS ---
Subjective: The patient was seen and examined at the bedside this morning. Events from the last 24 hours have been reviewed. The patient is currently afebrile, hemodynamically stable and maintaining appropriate oxygen saturations on a spontaneous mode of mechanical ventilation with an FiO2 requirement of 50%. The patient has made improvements in his overall ventilatory requirements over the last 24 hours. He currently has a PEEP of 5. The patient has been doing well this morning on a spontaneous breathing trial. No overnight issues were identified by the nursing staff. Objective: The patient's most recent lab work, culture data and imaging studies have all been personally reviewed. Blood and urine cultures have shown no growth to date. Respiratory viral panel was negative. Sputum culture was negative. Coronavirus RNA was detected on July 20. General: Alert, No apparent distress, - - Currently tolerating spontaneous mode of mechanical ventilation without issue. Oxygen saturations are currently in the low 90s. HEENT: Atraumatic, Normocephalic Oral: Moist Mucosa, - - Endotracheal and OG tubes remain in place. Neck: Supple, No Nodes, Trachea Midline Lungs: No rhonchi, No wheeze, No rales, Diminished, Tachypneic Cardiovascular: Regular rate, Regular Rhythm, Normal S1, Normal S2, No murmurs Abdomen: Bowel Sounds Present, Soft, Non Tender Extremities: No clubbing, No cyanosis, No edema Skin: No breakdown Musculoskeletal: No Muscle Wasting Lymphatic: No Cervical, Supraclavicular, or Inguinal Adenopathy Neurological: - - No focal neurological deficits. Although the patient is sedated, he is alert and able to follow commands appropriately. Vital Signs Temp Pulse Resp BP Pulse Ox 99 F 79 28 H 138/88 H 91 07/28/19 06:00 07/28/19 06:00 07/28/19 06:00 07/28/19 06:00 07/28/19 06:00 Oxygen Flow Rate (L/min) 45 Oxygen Delivery Method Mechanical Ventilator Weight: 209 lb 7.026 oz Body Mass Index (BMI) 31.1 Intake and Output for Last 24 Hours 07/26/19 07/27/19 07/28/19 23:59 23:59 23:59 Intake Total 2029.00 / 2155.90 3040.85 / 3525.55 674.78 / 674.78 Output Total 1300 / 1750 1700 / 2225 725 / 725 Balance 729.00 / 405.90 1340.85 / 1300.55 -50.22 / -50.22 Labs (Last 48 Hours) 07/26/19 07/26/19 07/27/19 04:10 07:25 04:30 WBC 8.6 RBC 4.18 L Hgb 12.2 L Hct 36.6 L MCV 87.6 MCH 29.2 MCHC 33.3 RDW Std Deviation 39.8 RDW Coeff of David 12.4 Plt Count 460 H MPV 11.1 Immature Gran % (Auto) 2.300 H Neut % (Auto) 60.1 Lymph % (Auto) 20.5 [place] % (Auto) 11.6 H Eos % (Auto) 4.8 Baso % (Auto) 0.7 Absolute Neuts (auto) 5.2 Absolute Lymphs (auto) 1.76 Nucleated RBC % 0 Specimen Type ART Sample Site L RADIAL pH 7.49 H Bicarbonate Actual 33.8 H POC Total CO2 35 Base Excess 11 H O2 Saturation 95 O2 % 70 ABG pCO2 44.1 ABG pO2 73 L Test POS Respiration Rate 16 O2 Delivery Device Vent Vent Mode A-C Tidal Volume 450 POC PEEP 12 Blood Gas Notified Whom ICU MD Blood Gas Notified Time 725 Sodium Potassium Chloride Carbon Dioxide Anion Gap BUN Creatinine Estim Creat Clear Calc Est GFR (MDRD) Af Amer Est GFR (MDRD) Non-Af BUN/Creatinine Ratio Glucose Calcium Total Bilirubin AST ALT Alkaline Phosphatase Total Creatine Kinase 21 L Total Protein Albumin Globulin Albumin/Globulin Ratio Triglycerides 155 Lipase 07/27/19 07/27/19 04:30 04:30 WBC RBC Hgb Hct MCV MCH MCHC RDW Std Deviation RDW Coeff of David Plt Count MPV Immature Gran % (Auto) Neut % (Auto) Lymph % (Auto) [place] % (Auto) Eos % (Auto) Baso % (Auto) Absolute Neuts (auto) Absolute Lymphs (auto) Nucleated RBC % Specimen Type Sample Site pH Bicarbonate Actual POC Total CO2 Base Excess O2 Saturation O2 % ABG pCO2 ABG pO2 Test Respiration Rate O2 Delivery Device Vent Mode Tidal Volume POC PEEP Blood Gas Notified Whom Blood Gas Notified Time Sodium 140 Potassium 3.7 Chloride 102 Carbon Dioxide 33.0 H Anion Gap 5 BUN 38 H Creatinine 0.89 Estim Creat Clear Calc 90.00 Est GFR (MDRD) Af Amer 112 Est GFR (MDRD) Non-Af 92 BUN/Creatinine Ratio 42.8 H Glucose 138 H Calcium 8.7 Total Bilirubin 0.50 AST 385 H ALT 342 H Alkaline Phosphatase 134 H Total Creatine Kinase Total Protein 6.7 Albumin 2.1 L Globulin 4.6 H Albumin/Globulin Ratio 0.5 L Triglycerides Lipase 315 Microbiology 07/23/19 16:20 Sputum, Induced/Lukens Gram Stain - Final 07/23/19 16:20 Sputum, Induced/Lukens Respiratory Culture - Final Clinical Impression(s) from Imaging Studies Chest X-Ray 07/19/19 16:23 IMPRESSION: Thickening multifocal bilateral pulmonary opacities most consistent with acute infection. Electronically Signed: Damaso Parra, at 17:44 EDT Tel , Service support , Chest X-Ray 07/19/19 17:20 IMPRESSION: Endotracheal tube tip is in the midthoracic trachea. Enteric tube tip is in the stomach. Similar-appearing multifocal pulmonary opacities bilaterally. Electronically Signed: Damaso Parra, at 17:49 EDT Tel , Service support , Chest X-Ray 07/23/19 08:39 IMPRESSION: Similar appearance of patchy airspace disease within the bilateral lung parenchyma with no evidence of new focal consolidation. Electronically Signed: Shaheen Rosado DO at 10:39 EDT , Service support , Chest X-Ray 07/26/19 04:48 IMPRESSION: The endotracheal tube is at the 3 cm proximal to the jena. Since prior study, there has been progressive bilateral peripheral based infiltrates. Electronically Signed: Lambert Cason, at 8:16 EDT , Service support , Liver Ultrasound 07/27/19 06:12 IMPRESSION: Mild heterogeneous echotexture of the hepatic parenchyma. 1.4 cm x 1.5 cm x 1.4 cm echogenic nodule in the central right lobe of the liver suggestive of an hemangioma. Sludge is seen within the gallbladder lumen. Electronically Signed: Lambert Cason, at 10:41 EDT , Service support , Medical Necessity - Tobacco Use Smoking Status: Never smoker Assessment/Plan All Active Problems (Last Reviewed 04/01/17 @ 13:34 by Leandra Duarte) COVID-19 (Acute) ARDS (adult respiratory distress syndrome) (Acute) Sepsis (Acute) Acute respiratory failure with hypoxia (Acute) Bilateral pneumonia (Acute) RECOMMENDATIONS: 1. Continue patient on spontaneous breathing trial throughout the morning as tolerated. 2. Continue to wean FiO2 to maintain oxygen saturations at or above 90%. 3. Continue tube feeds as tolerated. 4. Continue appropriate ICU prophylaxis. 5. Continue propofol and fentanyl for sedation. 6. Physical therapy to work with the patient. IMPRESSIONS: 1. Acute hypoxemic respiratory failure secondary to ARDS due to COVID 19 Infection Continue current supportive measures with invasive mechanical ventilatory support, employing a lung protective strategy. The patient has now completed a 5-day course of azithromycin, ceftriaxone and Plaquenil. Infectious diseases is currently following. Lasix has been discontinued due to what appears to be the development of a contraction alkalosis. Wean FiO2 and PEEP to maintain oxygen saturations at or above 90%. Continue propofol and fentanyl for sedation, along with tube feeds as tolerated. 2. Chronic pain syndrome/obesity/elevated transaminases of unclear etiology Complicates care, management, recovery and prognosis. Physical therapy to work with the patient today. TIME: 39 minutes of critical care time, independent of procedures, was spent addressing the patient's acute hypoxemic respiratory failure, ARDS secondary to coronavirus infection, review of all data and collaboration with the care team. ([id number]) [id number] Critical care first hour
[2019-07-28 08:30] LABS: Absolute Lymphocyte Count 1.55 X10^3/uL (0.83-4.51); Absolute Neutrophil Count 6.3 X10^3/uL (2.0-7.7); Basophil# 0.07 X10^3/uL; Basophil% 0.8 % (0-1); Eosinophil# 0.24 X10^3/uL; Eosinophils% 2.6 % (0-5); Hematocrit 36.7 % (40-54); Hemoglobin 12.2 g/dL (13.0-16.5); Lymphocyte # 1.55 X10^3/ul (4.0); Lymphocyte % 16.9 % (19-41); Mean Corp Hgb Conc 33.2 g/dL (32-36); Mean Corpuscular Hgb 29.3 pg (27.0-32.0); Mean Platelet Vol. 11.4 fl (6.2-12.0); Monocyte# 0.89 X10^3/uL; Monocyte% 9.7 % (0-10); NRBC Flagged by Analyzer 0 % (0-5); Neutrophil # 6.27 X10^3/uL (2.7-7.7); Neutrophil % 68.2 % (47-70); Platelet Count 450 K/mm3 (150-450); RBC Distribution Width CV 12.3 % (11.6-14.6); RBC Distribution Width SD 39.8 fl (35.1-43.9); Red Blood Count 4.17 M/mm3 (4.6-6.2); White Blood Count 9.2 K/mm3 (4.4-11.0)
[2019-07-28 08:43] LABS: Anion Gap 6 (5-15); BUN 33 mg/dL (7-18); BUN/Creat Ratio 40.1 RATIO (10-20); Calcium,Total 8.7 mg/dL (8.5-10.1); Chloride 104 mmol/L (98-107); Creatinine, Serum 0.82 mg/dL (0.70-1.30); EST Glomerular Filtration Rate 101 mL/min (>60); Est Glom Filt Rate - Afr Amer 122 mL/min (>60); Estimated Creatinine Clearance 97.68 ml/min; Glucose 137 mg/dL (74-106); Potassium 3.8 mmol/L (3.5-5.1); Sodium Level 140 mmol/L (136-145)
[2019-07-28] MEDS: Chlorhexidine 15 ML PO ×2 (09:34→22:22)
[2019-07-28] MEDS: Enoxaparin 40 MG/0.4 ML Syringe SC (09:34)
[2019-07-28] MEDS: Senna/Docusate Sodium 1 Tablet 2 TABLET GT (09:34)
[2019-07-28] MEDS: CHLORHEXIDINE GLUC 2% CLOTH 1 EACH TOWELETTE TOPICAL (09:35)
[2019-07-28] MEDS: Famotidine 20 MG Tablet 40 MG GT (09:35)
[2019-07-28 12:35] LABS: AST(SGOT) 346 U/L (15-37); Alanine Aminotransfer ALT/SGPT 391 U/L (16-61); Albumin, Serum 2.2 g/dL (3.2-5.0); Alkaline Phosphatase 116 U/L (45-117); Bilirubin, Direct 0.28 mg/dL (0.00-0.30); Globulin 4.6 g/dL (2.2-4.2); Protein, Total 6.8 g/dL (6.4-8.2)
--- NOTE | 2019-07-28 13:57 | PN.ID_ITS ---
Patient Problems: Active and Suspected Problems (Last Reviewed 04/01/17 @ 13:34 by Leandra Duarte) ARDS (adult respiratory distress syndrome) (Acute) Acute respiratory failure with hypoxia (Acute) Bilateral pneumonia (Acute) Subjective: Feeling better, no dyspnea, no fever, no abd pain - Physical Exam Vitals/I&O's: Vital Signs Temp Pulse Resp BP Pulse Ox 98.9 F 69 30 H 134/89 H 90 07/28/19 13:00 07/28/19 13:00 07/28/19 13:00 07/28/19 13:00 07/28/19 13:00 Oxygen Flow Rate (L/min) 45 Oxygen Delivery Method Mechanical Ventilator Weight: 95 kg Body Mass Index (BMI) 31.1 Intake and Output for Last 24 Hours 07/26/19 07/27/19 07/28/19 23:59 23:59 23:59 Intake Total 2029.00 / 2155.90 3040.85 / 3525.55 881.54 / 881.54 Output Total 1300 / 1750 1700 / 2225 1375 / 1375 Balance 729.00 / 405.90 1340.85 / 1300.55 -493.46 / -493.46 General: Alert, Cooperative, No apparent distress Lungs: Clear to auscultation, Normal air movement Cardiovascular: Regular rate, Regular Rhythm Abdomen: Soft, Non Tender, Non-Distended Skin: No rashes Microbiology Past 72 Hours 07/23/19 16:20 Sputum, Induced/Lukens Gram Stain - Final 07/23/19 16:20 Sputum, Induced/Lukens Respiratory Culture - Final Laboratory Results 07/28/19 07:50: WBC 9.2, RBC 4.17 L, Hgb 12.2 L, Hct 36.7 L, MCV 88.0, MCH 29.3, MCHC 33.2, RDW Std Deviation 39.8, RDW Coeff of David 12.3, Plt Count 450, MPV 11.4, Immature Gran % (Auto) 1.800 H, Neut % (Auto) 68.2, Lymph % (Auto) 16.9 L, Delta % (Auto) 9.7, Eos % (Auto) 2.6, Baso % (Auto) 0.8, Absolute Neuts (auto) 6.3, Absolute Lymphs (auto) 1.55, Nucleated RBC % 0 07/28/19 07:50: Sodium 140, Potassium 3.8, Chloride 104, Carbon Dioxide 30.0, Anion Gap 6, BUN 33 H, Creatinine 0.82, Estim Creat Clear Calc 97.68, Est GFR (MDRD) Af Amer 122, Est GFR (MDRD) Non-Af 101, BUN/Creatinine Ratio 40.1 H, Glucose 137 H, Calcium 8.7 07/28/19 07:50: Total Bilirubin 0.60, Direct Bilirubin 0.28, AST 346 H, ALT 391 H, Alkaline Phosphatase 116, Total Protein 6.8, Albumin 2.2 L, Globulin 4.6 H Current Medications Acetaminophen (Tylenol Liquid) 650 mg NG Q6H PRN PRN PRN Reason: Pain Score 1-10/Temp > 100.7 F Last Admin: 07/26/19 21:14 Dose: 650 mg Documented by: Albuterol Sulfate (Ventolin Aerosols) 2.5 mg INHALATION Q2H PRN PRN PRN Reason: SOB &/OR WHEEZING Last Admin: 07/23/19 23:56 Dose: 2.5 mg Documented by: Bisacodyl (Dulcolax) 10 mg RECTAL DAILY PRN PRN Reason: Constipation Chlorhexidine Gluconate () 15 ml PO BID [facility] Last Admin: 07/28/19 09:34 Dose: 15 ml Documented by: Chlorhexidine Gluconate () 1 each TOPICAL DAILY [facility] Last Admin: 07/28/19 09:35 Dose: 1 each Documented by: Enoxaparin Sodium (Lovenox) 40 mg SC DAILY [facility] Last Admin: 07/28/19 09:34 Dose: 40 mg Documented by: Famotidine (Pepcid) 40 mg GT DAILY [facility] Last Admin: 07/28/19 09:35 Dose: 40 mg Documented by: Guaifenesin (Robitussin) 10 ml GT Q6H [facility] Last Admin: 07/28/19 09:34 Dose: 10 ml Documented by: Fentanyl () 100 mls @ 2.5 mls/hr IV UD [facility]; Protocol Last Titration: 07/28/19 13:00 Dose: 50 mcg/hr, 5 mls/hr Documented by: Propofol (Diprivan) 1,000 mg in 100 mls @ 5.694 mls/hr CONT INF .Q12H [facility]; Protocol Last Titration: 07/28/19 13:00 Dose: 0 mcg/kg/min, 0 mls/hr Documented by: Sodium Chloride () 250 mls @ 15 mls/hr IV .[id number] PRN PRN Reason: Saline Flush Last Infusion: 07/24/19 00:13 Dose: Infused Documented by: Sodium Chloride () 250 mls @ 15 mls/hr IV .[id number] PRN PRN Reason: Additional IVPB Infusion Last Infusion: 07/23/19 16:06 Dose: Infused Documented by: Enteral Nutritional Formula (Vital Af 1.2 [place] Liquid) 1,000 mls @ 65 mls/hr GT .[id number] [facility] Last Admin: 07/28/19 08:58 Dose: Not Given Documented by: Ondansetron HCl (Zofran) 4 mg IV Q8H PRN PRN PRN Reason: NAUSEA/VOMITING Senna/Docusate Sodium (Senokot-S, Arlette-Colace) 2 tablet GT BID [facility] Last Admin: 07/28/19 09:34 Dose: 2 tablet Documented by: Sodium Chloride () 10 - 40 ml IV UD PRN PRN Reason: SALINE FLUSH Last Admin: 07/27/19 09:00 Dose: 10 ml Documented by: Zinc Sulfate (Zinc Sulfate) 220 mg GT TID@0100,1000,1700 [facility] Medical Necessity - Tobacco Use Smoking Status: Never smoker Route of nutrition/ use of supplements: [] Nutritional Intake: [] IV Site: [] [place] Catheter: [] - Assessment/Plan Antibiotics: [] Assessment/Plan: [] Active and Suspected Problems (Last Reviewed 04/01/17 @ 13:34 by Leandra Duarte) Suspected 2018 novel coronavirus infection (Acute) ARDS (adult respiratory distress syndrome) (Acute) Sepsis (Acute) Acute respiratory failure with hypoxia (Acute) Bilateral pneumonia (Acute) Acute hypoxic resp failure with sepsis - covid (+). Wbc normal now, fever curve improved. Resp pcr panel was neg. 4/3 started empiric 5 day course of azithro/plaquenil. Now some transaminitis, possibly related to plaquenil. Liver u/s done. Fio2 40% today. Overall much improved. Will follow, d/w Dr. Masterson
[2019-07-28] MEDS: fentaNYL drip 100 ML 5 MCG IV (14:00)
--- NOTE | 2019-07-28 15:58 | PCM.PN.HOSP ---
Patient Problems: Active and Suspected Problems (Last Reviewed 04/01/17 @ 13:34 by Leandra Duarte) ARDS (adult respiratory distress syndrome) (Acute) Acute respiratory failure with hypoxia (Acute) Bilateral pneumonia (Acute) Subjective: Improved, down to 40% on his FiO2 as well as 5 of PEEP currently on spontaneous breathing trial will likely place back on the vent overnight Vitals/I&O's: Vital Signs Temp Pulse Resp BP Pulse Ox 99.1 F 73 29 H 126/85 H 93 07/28/19 14:00 07/28/19 14:00 07/28/19 14:00 07/28/19 14:00 07/28/19 14:00 Oxygen Flow Rate (L/min) 45 Oxygen Delivery Method Mechanical Ventilator Weight: 209 lb 7.026 oz Body Mass Index (BMI) 31.1 Intake and Output for Last 24 Hours 07/26/19 07/27/19 07/28/19 23:59 23:59 23:59 Intake Total 2029.00 / 2155.90 3040.85 / 3525.55 886.54 / 886.54 Output Total 1300 / 1750 1700 / 2225 1375 / 1375 Balance 729.00 / 405.90 1340.85 / 1300.55 -488.46 / -488.46 General: Alert, Oriented x3, Cooperative, No apparent distress, - - Intubated HEENT: Atraumatic, PERRLA, EOMI, Normocephalic Oral: Moist Mucosa Neck: Supple, No JVD Lungs: No rhonchi, No wheeze, No rales, Diminished, tachypneic Cardiovascular: Regular rate, Regular Rhythm, Normal S1, Normal S2, No murmurs Abdomen: Soft, Non Tender, Non-Distended, No Hepato-splenomegaly Extremities: No edema, Capillary Refill Less than 3 Seconds Skin: No rashes, No breakdown Neurological: Neuro grossly intact, Sensory exam intact to light touch and pain, - - Intubated but not sedated Psych/Mental Status: Normal Affect, Appropriate Microbiology Past 72 Hours 07/23/19 16:20 Sputum, Induced/Lukens Gram Stain - Final 07/23/19 16:20 Sputum, Induced/Lukens Respiratory Culture - Final Laboratory Results 07/28/19 07:50: WBC 9.2, RBC 4.17 L, Hgb 12.2 L, Hct 36.7 L, MCV 88.0, MCH 29.3, MCHC 33.2, RDW Std Deviation 39.8, RDW Coeff of David 12.3, Plt Count 450, MPV 11.4, Immature Gran % (Auto) 1.800 H, Neut % (Auto) 68.2, Lymph % (Auto) 16.9 L, [place] % (Auto) 9.7, Eos % (Auto) 2.6, Baso % (Auto) 0.8, Absolute Neuts (auto) 6.3, Absolute Lymphs (auto) 1.55, Nucleated RBC % 0 07/28/19 07:50: Sodium 140, Potassium 3.8, Chloride 104, Carbon Dioxide 30.0, Anion Gap 6, BUN 33 H, Creatinine 0.82, Estim Creat Clear Calc 97.68, Est GFR (MDRD) Af Amer 122, Est GFR (MDRD) Non-Af 101, BUN/Creatinine Ratio 40.1 H, Glucose 137 H, Calcium 8.7 07/28/19 07:50: Total Bilirubin 0.60, Direct Bilirubin 0.28, AST 346 H, ALT 391 H, Alkaline Phosphatase 116, Total Protein 6.8, Albumin 2.2 L, Globulin 4.6 H Current Medications Acetaminophen (Tylenol Liquid) 650 mg NG Q6H PRN PRN PRN Reason: Pain Score 1-10/Temp > 100.7 F Last Admin: 07/26/19 21:14 Dose: 650 mg Documented by: Albuterol Sulfate (Ventolin Aerosols) 2.5 mg INHALATION Q2H PRN PRN PRN Reason: SOB &/OR WHEEZING Last Admin: 07/23/19 23:56 Dose: 2.5 mg Documented by: Bisacodyl (Dulcolax) 10 mg RECTAL DAILY PRN PRN Reason: Constipation Chlorhexidine Gluconate () 15 ml PO BID [facility] Last Admin: 07/28/19 09:34 Dose: 15 ml Documented by: Chlorhexidine Gluconate () 1 each TOPICAL DAILY [facility] Last Admin: 07/28/19 09:35 Dose: 1 each Documented by: Enoxaparin Sodium (Lovenox) 40 mg SC DAILY [facility] Last Admin: 07/28/19 09:34 Dose: 40 mg Documented by: Famotidine (Pepcid) 40 mg GT DAILY [facility] Last Admin: 07/28/19 09:35 Dose: 40 mg Documented by: Guaifenesin (Robitussin) 10 ml GT Q6H [facility] Last Admin: 07/28/19 09:34 Dose: 10 ml Documented by: Fentanyl () 100 mls @ 2.5 mls/hr IV UD [facility]; Protocol Last Admin: 07/28/19 14:00 Dose: 50 mcg/hr, 5 mls/hr Documented by: Propofol (Diprivan) 1,000 mg in 100 mls @ 5.694 mls/hr CONT INF .Q12H [facility]; Protocol Last Titration: 07/28/19 14:00 Dose: 0 mcg/kg/min, 0 mls/hr Documented by: Sodium Chloride () 250 mls @ 15 mls/hr IV .[id number] PRN PRN Reason: Saline Flush Last Infusion: 07/24/19 00:13 Dose: Infused Documented by: Sodium Chloride () 250 mls @ 15 mls/hr IV .[id number] PRN PRN Reason: Additional IVPB Infusion Last Infusion: 07/23/19 16:06 Dose: Infused Documented by: Enteral Nutritional Formula (Vital Af 1.2 [place] Liquid) 1,000 mls @ 65 mls/hr GT .[id number] [facility] Last Admin: 07/28/19 08:58 Dose: Not Given Documented by: Ondansetron HCl (Zofran) 4 mg IV Q8H PRN PRN PRN Reason: NAUSEA/VOMITING Senna/Docusate Sodium (Senokot-S, Arlette-Colace) 2 tablet GT BID [facility] Last Admin: 07/28/19 09:34 Dose: 2 tablet Documented by: Sodium Chloride () 10 - 40 ml IV UD PRN PRN Reason: SALINE FLUSH Last Admin: 07/27/19 09:00 Dose: 10 ml Documented by: Zinc Sulfate (Zinc Sulfate) 220 mg GT TID@0100,1000,1700 [facility] Vital Signs/Narrative: Vital Signs Temp Pulse Resp BP BP Pulse Ox 07/28/19 14:00 99.1 F 73 29 H 126/85 H 93 07/28/19 13:00 98.9 F 74 35 H 134/89 H 94 07/28/19 12:00 99.0 F 72 34 H 134/89 H 135/83 H 94 Medical Necessity - Tobacco Use Smoking Status: Never smoker Assessment/Plan All Active Problems (Last Reviewed 04/01/17 @ 13:34 by Leandra Duarte) COVID-19 (Acute) ARDS (adult respiratory distress syndrome) (Acute) Sepsis (Acute) Acute respiratory failure with hypoxia (Acute) Bilateral pneumonia (Acute) 1. Acute hypoxic respiratory failure secondary to ARDS from COVID-19 pneumonia/sepsis -intubated. FiO2 is at 40% with PEEP of 5, he is also on fentanyl and off propofol though he is alert and able to communicate via writing -He has completed 5 days of Plaquenil, Rocephin, azithromycin -Continue with spontaneous breathing trial and likely rest overnight and try another spontaneous breathing trial in the morning -We will discontinue his Lasix for an elevation in his bicarb -Culture data is negative for any coinfection -Transaminitis, liver US was unremarkable DVT: Lovenox Inpatient E&M: [id number] Subs Hosp L2
[2019-07-29] VITALS (27 sets, daily range): BP systolic 120–154; BP diastolic 79–101; PULSE 62–87; RESP 16–33; TEMP 36.7–37.7; O2SAT 90–100
[2019-07-29] MEDS: guaiFENesin 10 ML UDC (200MG/10ML) GT ×2 (04:55→16:30)
[2019-07-29 05:37] LABS: Absolute Neutrophil Count 6.5 X10^3/uL (2.0-7.7); Basophil# 0.08 X10^3/uL; Basophil% 0.9 % (0-1); Eosinophil# 0.17 X10^3/uL; Eosinophils% 1.8 % (0-5); Hematocrit 35.5 % (40-54); Hemoglobin 11.9 g/dL (13.0-16.5); Lymphocyte % 16.1 % (19-41); Mean Corp Hgb Conc 33.5 g/dL (32-36); Mean Corpuscular Hgb 29.5 pg (27.0-32.0); Mean Corpuscular Volume 87.9 fL (80-94); Mean Platelet Vol. 10.6 fl (6.2-12.0); Monocyte% 9.7 % (0-10); NRBC Flagged by Analyzer 0 % (0-5); Neutrophil # 6.52 X10^3/uL (2.7-7.7); Neutrophil % 69.9 % (47-70); Platelet Count 468 K/mm3 (150-450); RBC Distribution Width CV 12.1 % (11.6-14.6); Red Blood Count 4.04 M/mm3 (4.6-6.2); White Blood Count 9.3 K/mm3 (4.4-11.0)
[2019-07-29 05:46] LABS: Anion Gap 7 (5-15); BUN 35 mg/dL (7-18); BUN/Creat Ratio 40.7 RATIO (10-20); Calcium,Total 8.5 mg/dL (8.5-10.1); Chloride 106 mmol/L (98-107); Creatinine, Serum 0.86 mg/dL (0.70-1.30); EST Glomerular Filtration Rate 96 mL/min (>60); Est Glom Filt Rate - Afr Amer 116 mL/min (>60); Estimated Creatinine Clearance 93.14 ml/min; Glucose 124 mg/dL (74-106); Potassium 3.9 mmol/L (3.5-5.1); Sodium Level 140 mmol/L (136-145)
--- NOTE | 2019-07-29 06:11 | PCM.PN.INT ---
Subjective: The patient was seen and examined at the bedside this morning. Events from the last 24 hours have been reviewed. The patient is currently afebrile, hemodynamically stable and maintaining appropriate oxygen saturations on a spontaneous breathing trial with an FiO2 requirement of 35%. No overnight issues were identified by the nursing staff. The patient is currently alert, appropriately interactive and following commands. Therefore, the decision was made to proceed with a trial of extubation this morning. Objective: The patient's most recent lab work, culture data and imaging studies have all been personally reviewed. Blood and urine cultures have shown no growth to date. Respiratory viral panel was negative. Sputum culture was negative. Coronavirus RNA was detected on July 20. General: Alert, Cooperative, No apparent distress, - - Remains intubated and mechanically ventilated. HEENT: Atraumatic, Normocephalic Oral: Moist Mucosa, - - Endotracheal and OG tubes currently in place Neck: Supple, No Nodes, Trachea Midline Lungs: No rhonchi, No wheeze, No rales, Diminished Cardiovascular: Regular rate, Regular Rhythm, Normal S1, Normal S2, No murmurs Abdomen: Bowel Sounds Present, Soft, Non Tender Extremities: No clubbing, No cyanosis, No edema Skin: No breakdown Musculoskeletal: No Muscle Wasting Lymphatic: No Cervical, Supraclavicular, or Inguinal Adenopathy Neurological: Neuro grossly intact, - - Moves all extremities spontaneously. Follows commands appropriately. Vital Signs Temp Pulse Resp BP Pulse Ox 99.0 F 68 23 H 120/80 96 07/29/19 06:00 07/29/19 06:00 07/29/19 06:00 07/29/19 06:00 07/29/19 06:00 Oxygen Flow Rate (L/min) 45 Oxygen Delivery Method Mechanical Ventilator Weight: 209 lb 7.026 oz Body Mass Index (BMI) 31.1 Intake and Output for Last 24 Hours 07/27/19 07/28/19 07/29/19 23:59 23:59 23:59 Intake Total 3040.85 / 3525.55 991.54 / 996.54 Output Total 1700 / 2225 2175 / 2175 Balance 1340.85 / 1300.55 -1183.46 / -1178.46 Labs (Last 48 Hours) 07/27/19 07/28/19 07/28/19 04:30 07:50 07:50 WBC 9.2 RBC 4.17 L Hgb 12.2 L Hct 36.7 L MCV 88.0 MCH 29.3 MCHC 33.2 RDW Std Deviation 39.8 RDW Coeff of David 12.3 Plt Count 450 MPV 11.4 Immature Gran % (Auto) 1.800 H Neut % (Auto) 68.2 Lymph % (Auto) 16.9 L [place] % (Auto) 9.7 Eos % (Auto) 2.6 Baso % (Auto) 0.8 Absolute Neuts (auto) 6.3 Absolute Lymphs (auto) 1.55 Nucleated RBC % 0 Sodium 140 Potassium 3.8 Chloride 104 Carbon Dioxide 30.0 Anion Gap 6 BUN 33 H Creatinine 0.82 Estim Creat Clear Calc 97.68 Est GFR (MDRD) Af Amer 122 Est GFR (MDRD) Non-Af 101 BUN/Creatinine Ratio 40.1 H Glucose 137 H Calcium 8.7 Total Bilirubin Direct Bilirubin AST ALT Alkaline Phosphatase Total Protein Albumin Globulin Lipase 315 07/28/19 07/29/19 07/29/19 07:50 05:15 05:15 WBC 9.3 RBC 4.04 L Hgb 11.9 L Hct 35.5 L MCV 87.9 MCH 29.5 MCHC 33.5 RDW Std Deviation 39.0 RDW Coeff of David 12.1 Plt Count 468 H MPV 10.6 Immature Gran % (Auto) 1.600 H Neut % (Auto) 69.9 Lymph % (Auto) 16.1 L [place] % (Auto) 9.7 Eos % (Auto) 1.8 Baso % (Auto) 0.9 Absolute Neuts (auto) 6.5 Absolute Lymphs (auto) 1.50 Nucleated RBC % 0 Sodium 140 Potassium 3.9 Chloride 106 Carbon Dioxide 27.0 Anion Gap 7 BUN 35 H Creatinine 0.86 Estim Creat Clear Calc 93.14 Est GFR (MDRD) Af Amer 116 Est GFR (MDRD) Non-Af 96 BUN/Creatinine Ratio 40.7 H Glucose 124 H Calcium 8.5 Total Bilirubin 0.60 Direct Bilirubin 0.28 AST 346 H ALT 391 H Alkaline Phosphatase 116 Total Protein 6.8 Albumin 2.2 L Globulin 4.6 H Lipase Clinical Impression(s) from Imaging Studies Chest X-Ray 07/19/19 16:23 IMPRESSION: Thickening multifocal bilateral pulmonary opacities most consistent with acute infection. Electronically Signed: Damaso Parra, at 17:44 EDT Tel , Service support , Chest X-Ray 07/19/19 17:20 IMPRESSION: Endotracheal tube tip is in the midthoracic trachea. Enteric tube tip is in the stomach. Similar-appearing multifocal pulmonary opacities bilaterally. Electronically Signed: Damaso Parra, at 17:49 EDT Tel , Service support , Chest X-Ray 07/23/19 08:39 IMPRESSION: Similar appearance of patchy airspace disease within the bilateral lung parenchyma with no evidence of new focal consolidation. Electronically Signed: Shaheen Rosado DO at 10:39 EDT , Service support , Chest X-Ray 07/26/19 04:48 IMPRESSION: The endotracheal tube is at the 3 cm proximal to the jena. Since prior study, there has been progressive bilateral peripheral based infiltrates. Electronically Signed: Lambert Cason, at 8:16 EDT , Service support , Liver Ultrasound 07/27/19 06:12 IMPRESSION: Mild heterogeneous echotexture of the hepatic parenchyma. 1.4 cm x 1.5 cm x 1.4 cm echogenic nodule in the central right lobe of the liver suggestive of an hemangioma. Sludge is seen within the gallbladder lumen. Electronically Signed: Lambert Cason, at 10:41 EDT , Service support , Medical Necessity - Tobacco Use Smoking Status: Never smoker Assessment/Plan All Active Problems (Last Reviewed 04/01/17 @ 13:34 by Leandra Duarte) COVID-19 (Acute) ARDS (adult respiratory distress syndrome) (Acute) Sepsis (Acute) Acute respiratory failure with hypoxia (Acute) Bilateral pneumonia (Acute) RECOMMENDATIONS: 1. Proceed with a trial of extubation this morning. 2. Once extubated, wean supplemental oxygen to maintain saturations at or above 90%. 3. The patient will require a formal speech therapy evaluation, prior to advancing diet. 4. Encourage incentive spirometer use and mobilize patient as tolerated. 5. Physical therapy to continue to work with the patient. 6. Patient to remain in COVID precautions following extubation. IMPRESSIONS: 1. Acute hypoxemic respiratory failure secondary to ARDS due to COVID 19 Infection Continue current supportive measures with invasive mechanical ventilatory support, employing a lung protective strategy. The patient has now completed a 5-day course of azithromycin, ceftriaxone and Plaquenil. Infectious diseases is currently following. The patient passed his spontaneous breathing trial and was extubated on the morning of July 28. His supplemental oxygen will be weaned to maintain saturations at or above 90%. I would recommend that speech therapy evaluate the patient prior to advancing his diet. Encourage incentive spirometer use and mobilize patient as tolerated. Physical therapy to continue to work with the patient. 2. Chronic pain syndrome/obesity/elevated transaminases of unclear etiology Complicates care, management, recovery and prognosis. Physical therapy to work with the patient. TIME: 35 minutes of critical care time, independent of procedures, was spent addressing the patient's acute hypoxemic respiratory failure, ARDS secondary to coronavirus infection, review of all data and collaboration with the care team. ([id number]) [id number] Critical care first hour
[2019-07-29] MEDS: Enoxaparin 40 MG/0.4 ML Syringe SC (10:45)
--- NOTE | 2019-07-29 12:45 | CM.UR ---
Participated in interdisciplinary rounds this am. Patient was extubated and is on 4 Liters o2 per NC. CM will continue to follow and see what PT/OT recommends after seeing patient again. Claudia Alexandre RN, CCM.
--- NOTE | 2019-07-29 13:13 | PCM.PN.HOSP ---
Patient Problems: Active and Suspected Problems (Last Reviewed 04/01/17 @ 13:34 by Leandra Duarte) ARDS (adult respiratory distress syndrome) (Acute) Acute respiratory failure with hypoxia (Acute) Bilateral pneumonia (Acute) Subjective: Currently extubated and doing well. Maintaining his oxygen sats on 4 L. He is slightly tachypneic and still has to write questions down because he lost his voice. Vitals/I&O's: Vital Signs Temp Pulse Resp BP Pulse Ox 98.5 F 68 21 H 129/90 H 91 07/29/19 12:00 07/29/19 12:00 07/29/19 12:00 07/29/19 12:00 07/29/19 12:00 Oxygen Flow Rate (L/min) 4 Oxygen Delivery Method Nasal Cannula Weight: 212 lb 8.41 oz Body Mass Index (BMI) 31.1 Intake and Output for Last 24 Hours 07/27/19 07/28/19 07/29/19 23:59 23:59 23:59 Intake Total 3040.85 / 3525.55 991.54 / 996.54 112.38 / 112.38 Output Total 1700 / 2225 2175 / 2175 700 / 700 Balance 1340.85 / 1300.55 -1183.46 / -1178.46 -587.62 / -587.62 General: Alert, Oriented x3, Cooperative, No apparent distress, HEENT: Atraumatic, PERRLA, EOMI, Normocephalic Oral: Moist Mucosa Neck: Supple, No JVD Lungs: No rhonchi, No wheeze, No rales, Diminished, tachypneic Cardiovascular: Regular rate, Regular Rhythm, Normal S1, Normal S2, No murmurs Abdomen: Soft, Non Tender, Non-Distended, No Hepato-splenomegaly Extremities: No edema, Capillary Refill Less than 3 Seconds Skin: No rashes, No breakdown Neurological: Neuro grossly intact, Sensory exam intact to light touch and pain, Psych/Mental Status: Normal Affect, Appropriate Laboratory Results 07/29/19 05:15: WBC 9.3, RBC 4.04 L, Hgb 11.9 L, Hct 35.5 L, MCV 87.9, MCH 29.5, MCHC 33.5, RDW Std Deviation 39.0, RDW Coeff of David 12.1, Plt Count 468 H, MPV 10.6, Immature Gran % (Auto) 1.600 H, Neut % (Auto) 69.9, Lymph % (Auto) 16.1 L, [place] % (Auto) 9.7, Eos % (Auto) 1.8, Baso % (Auto) 0.9, Absolute Neuts (auto) 6.5, Absolute Lymphs (auto) 1.50, Nucleated RBC % 0 07/29/19 05:15: Sodium 140, Potassium 3.9, Chloride 106, Carbon Dioxide 27.0, Anion Gap 7, BUN 35 H, Creatinine 0.86, Estim Creat Clear Calc 93.14, Est GFR (MDRD) Af Amer 116, Est GFR (MDRD) Non-Af 96, BUN/Creatinine Ratio 40.7 H, Glucose 124 H, Calcium 8.5 Current Medications Acetaminophen (Tylenol Liquid) 650 mg NG Q6H PRN PRN PRN Reason: Pain Score 1-10/Temp > 100.7 F Last Admin: 07/26/19 21:14 Dose: 650 mg Documented by: Albuterol Sulfate (Ventolin Aerosols) 2.5 mg INHALATION Q2H PRN PRN PRN Reason: SOB &/OR WHEEZING Last Admin: 07/23/19 23:56 Dose: 2.5 mg Documented by: Bisacodyl (Dulcolax) 10 mg RECTAL DAILY PRN PRN Reason: Constipation Chlorhexidine Gluconate () 1 each TOPICAL DAILY [facility] Last Admin: 07/28/19 09:35 Dose: 1 each Documented by: Enoxaparin Sodium (Lovenox) 40 mg SC DAILY [facility] Last Admin: 07/29/19 10:45 Dose: 40 mg Documented by: Guaifenesin (Robitussin) 10 ml GT Q6H [facility] Last Admin: 07/29/19 11:55 Dose: Not Given Documented by: Sodium Chloride () 250 mls @ 15 mls/hr IV .[id number] PRN PRN Reason: Saline Flush Last Infusion: 07/24/19 00:13 Dose: Infused Documented by: Sodium Chloride () 250 mls @ 15 mls/hr IV .[id number] PRN PRN Reason: Additional IVPB Infusion Last Infusion: 07/23/19 16:06 Dose: Infused Documented by: Ondansetron HCl (Zofran) 4 mg IV Q8H PRN PRN PRN Reason: NAUSEA/VOMITING Senna/Docusate Sodium (Senokot-S, Arlette-Colace) 2 tablet GT BID [facility] Last Admin: 07/29/19 11:55 Dose: Not Given Documented by: Sodium Chloride () 10 - 40 ml IV UD PRN PRN Reason: SALINE FLUSH Last Admin: 07/27/19 09:00 Dose: 10 ml Documented by: Zinc Sulfate (Zinc Sulfate) 220 mg GT TID@0100,1000,1700 [facility] Last Admin: 07/29/19 11:55 Dose: Not Given Documented by: STROKE Vital Signs/Narrative: Vital Signs Temp Pulse Resp BP BP Pulse Ox 07/29/19 12:00 98.5 F 68 21 H 129/90 H 91 07/29/19 11:00 98.7 F 72 26 H 133/89 H 92 07/29/19 10:00 98.7 F 69 24 H 138/92 H 93 Medical Necessity - Tobacco Use Smoking Status: Never smoker Assessment/Plan All Active Problems (Last Reviewed 04/01/17 @ 13:34 by Leandra Duarte) COVID-19 (Acute) ARDS (adult respiratory distress syndrome) (Acute) Sepsis (Acute) Acute respiratory failure with hypoxia (Acute) Bilateral pneumonia (Acute) 1. Acute hypoxic respiratory failure secondary to ARDS from COVID-19 pneumonia/sepsis -Extubated and maintaining sats on 4 L NC -He has completed 5 days of Plaquenil, Rocephin, azithromycin -We will discontinue his Lasix for an elevation in his bicarb -Culture data is negative for any coinfection -Transaminitis, liver US was unremarkable DVT: Lovenox Inpatient E&M: [id number] Subs Hosp L2
[2019-07-29] MEDS: CHLORHEXIDINE GLUC 2% CLOTH 1 EACH TOWELETTE TOPICAL (16:15)
[2019-07-29] MEDS: guaiFENesin 1,200 MG Tablet 1200 MG PO (21:21)
[2019-07-30] VITALS (15 sets, daily range): BP systolic 107–145; BP diastolic 57–105; PULSE 63–75; RESP 18–30; TEMP 36.4–37.3; O2SAT 93–99
[2019-07-30 05:09] LABS: Absolute Lymphocyte Count 1.58 X10^3/uL (0.83-4.51); Absolute Neutrophil Count 3.2 X10^3/uL (2.0-7.7); Basophil# 0.08 X10^3/uL; Basophil% 1.3 % (0-1); Eosinophil# 0.18 X10^3/uL; Hematocrit 34.8 % (40-54); Hemoglobin 11.7 g/dL (13.0-16.5); Lymphocyte # 1.58 X10^3/ul (4.0); Lymphocyte % 26.6 % (19-41); Mean Corp Hgb Conc 33.6 g/dL (32-36); Mean Corpuscular Hgb 29.6 pg (27.0-32.0); Mean Corpuscular Volume 88.1 fL (80-94); Mean Platelet Vol. 11.5 fl (6.2-12.0); Monocyte# 0.81 X10^3/uL; Monocyte% 13.6 % (0-10); NRBC Flagged by Analyzer 0 % (0-5); Neutrophil # 3.22 X10^3/uL (2.7-7.7); Neutrophil % 54.3 % (47-70); Platelet Count 449 K/mm3 (150-450); RBC Distribution Width CV 11.9 % (11.6-14.6); RBC Distribution Width SD 38.2 fl (35.1-43.9); Red Blood Count 3.95 M/mm3 (4.6-6.2); White Blood Count 5.9 K/mm3 (4.4-11.0)
[2019-07-30 05:20] LABS: Anion Gap 6 (5-15); BUN 31 mg/dL (7-18); Calcium,Total 8.6 mg/dL (8.5-10.1); Chloride 106 mmol/L (98-107); Creatinine, Serum 0.74 mg/dL (0.70-1.30); EST Glomerular Filtration Rate 114 mL/min (>60); Est Glom Filt Rate - Afr Amer 138 mL/min (>60); Estimated Creatinine Clearance 108.24 ml/min; Glucose 99 mg/dL (74-106); Potassium 3.5 mmol/L (3.5-5.1); Sodium Level 138 mmol/L (136-145)
--- NOTE | 2019-07-30 05:59 | PCM.PN.INT ---
Subjective: The patient was seen and examined at the bedside this morning. Events from the last 24 hours have been reviewed. The patient is currently afebrile, hemodynamically stable and maintaining appropriate oxygen saturations on 4 L/min via nasal cannula. The patient has done well from a respiratory perspective following extubation yesterday. The patient was evaluated by speech therapy yesterday who recommended a pur?ed diet with thin liquids and aspiration precautions. Vocal phonation is limited this morning. He is able to give me a thumbs up and shakes his head no to any respiratory complaints. Objective: The patient's most recent lab work, culture data and imaging studies have all been personally reviewed. Blood and urine cultures have shown no growth to date. Respiratory viral panel was negative. Sputum culture was negative. Coronavirus RNA was detected on July 20. General: Alert, Cooperative, No apparent distress HEENT: Atraumatic, Normocephalic Oral: Moist Mucosa Neck: Supple, No Nodes, Trachea Midline Lungs: No rhonchi, No wheeze, No rales, Diminished Cardiovascular: Regular rate, Regular Rhythm, Normal S1, Normal S2, No murmurs Abdomen: Bowel Sounds Present, Soft, Non Tender Extremities: No clubbing, No cyanosis, No edema Skin: No breakdown Musculoskeletal: No Muscle Wasting Lymphatic: No Cervical, Supraclavicular, or Inguinal Adenopathy Neurological: - - No focal neurological deficits. Vital Signs Temp Pulse Resp BP Pulse Ox 97.8 F 63 21 H 145/93 H 99 07/30/19 00:00 07/30/19 02:00 07/30/19 02:00 07/30/19 02:00 07/30/19 02:00 Oxygen Flow Rate (L/min) 4 Oxygen Delivery Method Nasal Cannula Weight: 202 lb 13.204 oz Body Mass Index (BMI) 31.1 Intake and Output for Last 24 Hours 07/28/19 07/29/19 07/30/19 23:59 23:59 23:59 Intake Total 991.54 / 996.54 472.38 / 922.38 450 / 450 Output Total 2175 / 2175 1250 / 1750 500 / 500 Balance -1183.46 / -1178.46 -777.62 / -827.62 -50 / -50 Labs (Last 48 Hours) 07/28/19 07/28/19 07/28/19 07:50 07:50 07:50 WBC 9.2 RBC 4.17 L Hgb 12.2 L Hct 36.7 L MCV 88.0 MCH 29.3 MCHC 33.2 RDW Std Deviation 39.8 RDW Coeff of David 12.3 Plt Count 450 MPV 11.4 Immature Gran % (Auto) 1.800 H Neut % (Auto) 68.2 Lymph % (Auto) 16.9 L [place] % (Auto) 9.7 Eos % (Auto) 2.6 Baso % (Auto) 0.8 Absolute Neuts (auto) 6.3 Absolute Lymphs (auto) 1.55 Nucleated RBC % 0 Sodium 140 Potassium 3.8 Chloride 104 Carbon Dioxide 30.0 Anion Gap 6 BUN 33 H Creatinine 0.82 Estim Creat Clear Calc 97.68 Est GFR (MDRD) Af Amer 122 Est GFR (MDRD) Non-Af 101 BUN/Creatinine Ratio 40.1 H Glucose 137 H Calcium 8.7 Total Bilirubin 0.60 Direct Bilirubin 0.28 AST 346 H ALT 391 H Alkaline Phosphatase 116 Total Protein 6.8 Albumin 2.2 L Globulin 4.6 H 07/29/19 07/29/19 07/30/19 05:15 05:15 03:15 WBC 9.3 5.9 RBC 4.04 L 3.95 L Hgb 11.9 L 11.7 L Hct 35.5 L 34.8 L MCV 87.9 88.1 MCH 29.5 29.6 MCHC 33.5 33.6 RDW Std Deviation 39.0 38.2 RDW Coeff of David 12.1 11.9 Plt Count 468 H 449 MPV 10.6 11.5 Immature Gran % (Auto) 1.600 H 1.200 H Neut % (Auto) 69.9 54.3 Lymph % (Auto) 16.1 L 26.6 [place] % (Auto) 9.7 13.6 H Eos % (Auto) 1.8 3.0 Baso % (Auto) 0.9 1.3 H Absolute Neuts (auto) 6.5 3.2 Absolute Lymphs (auto) 1.50 1.58 Nucleated RBC % 0 0 Sodium 140 Potassium 3.9 Chloride 106 Carbon Dioxide 27.0 Anion Gap 7 BUN 35 H Creatinine 0.86 Estim Creat Clear Calc 93.14 Est GFR (MDRD) Af Amer 116 Est GFR (MDRD) Non-Af 96 BUN/Creatinine Ratio 40.7 H Glucose 124 H Calcium 8.5 Total Bilirubin Direct Bilirubin AST ALT Alkaline Phosphatase Total Protein Albumin Globulin 07/30/19 03:15 WBC RBC Hgb Hct MCV MCH MCHC RDW Std Deviation RDW Coeff of David Plt Count MPV Immature Gran % (Auto) Neut % (Auto) Lymph % (Auto) [place] % (Auto) Eos % (Auto) Baso % (Auto) Absolute Neuts (auto) Absolute Lymphs (auto) Nucleated RBC % Sodium 138 Potassium 3.5 Chloride 106 Carbon Dioxide 26.0 Anion Gap 6 BUN 31 H Creatinine 0.74 Estim Creat Clear Calc 108.24 Est GFR (MDRD) Af Amer 138 Est GFR (MDRD) Non-Af 114 BUN/Creatinine Ratio 42.0 H Glucose 99 Calcium 8.6 Total Bilirubin Direct Bilirubin AST ALT Alkaline Phosphatase Total Protein Albumin Globulin Clinical Impression(s) from Imaging Studies Chest X-Ray 07/19/19 16:23 IMPRESSION: Thickening multifocal bilateral pulmonary opacities most consistent with acute infection. Electronically Signed: Damaso Parra, at 17:44 EDT Tel , Service support , Chest X-Ray 07/19/19 17:20 IMPRESSION: Endotracheal tube tip is in the midthoracic trachea. Enteric tube tip is in the stomach. Similar-appearing multifocal pulmonary opacities bilaterally. Electronically Signed: Damaso Parra at 17:49 EDT Tel , Service support , Chest X-Ray 07/23/19 08:39 IMPRESSION: Similar appearance of patchy airspace disease within the bilateral lung parenchyma with no evidence of new focal consolidation. Electronically Signed: Shaheen Rosado DO at 10:39 EDT , Service support , Chest X-Ray 07/26/19 04:48 IMPRESSION: The endotracheal tube is at the 3 cm proximal to the jena. Since prior study, there has been progressive bilateral peripheral based infiltrates. Electronically Signed: Lambert Cason, at 8:16 EDT , Service support , Liver Ultrasound 07/27/19 06:12 IMPRESSION: Mild heterogeneous echotexture of the hepatic parenchyma. 1.4 cm x 1.5 cm x 1.4 cm echogenic nodule in the central right lobe of the liver suggestive of an hemangioma. Sludge is seen within the gallbladder lumen. Electronically Signed: Lambert Cason, at 10:41 EDT , Service support , Medical Necessity - Tobacco Use Smoking Status: Never smoker Assessment/Plan All Active Problems (Last Reviewed 04/01/17 @ 13:34 by Leandra Duarte) COVID-19 (Acute) ARDS (adult respiratory distress syndrome) (Acute) Sepsis (Acute) Acute respiratory failure with hypoxia (Acute) Bilateral pneumonia (Acute) RECOMMENDATIONS: 1. Continue to wean supplemental oxygen to maintain saturations at or above 90%. 2. Continue modified diet with aspiration precautions per speech therapy recommendations. 3. Encourage incentive spirometer use and mobilize patient as tolerated. 4. Physical therapy to continue to work with the patient. 5. Patient to remain in COVID precautions. 6. The patient is medically stable for transfer out of the intensive care unit. IMPRESSIONS: 1. Acute hypoxemic respiratory failure secondary to ARDS due to COVID 19 Infection Continue current supportive measures with invasive mechanical ventilatory support, employing a lung protective strategy. The patient has now completed a 5-day course of azithromycin, ceftriaxone and Plaquenil. Infectious diseases is currently following. The patient passed his spontaneous breathing trial and was extubated on the morning of July 28. His supplemental oxygen will be weaned to maintain saturations at or above 90%. He will remain on a modified diet with aspiration precautions per speech therapy recommendations. Encourage incentive spirometer use and mobilize patient as tolerated. Physical therapy to continue to work with the patient. 2. Chronic pain syndrome/obesity/elevated transaminases of unclear etiology Complicates care, management, recovery and prognosis. Physical therapy to work with the patient. This note was generated with [employer] software. It may contain incorrect words, spelling, and punctuation that were not noted in checking the note before signing. Inpatient E&M: 43325 Subs Hosp L3
[2019-07-30] MEDS: Enoxaparin 40 MG/0.4 ML Syringe SC (08:04)
[2019-07-30] MEDS: guaiFENesin 1,200 MG Tablet 1200 MG PO ×2 (08:04→22:58)
[2019-07-30] MEDS: CHLORHEXIDINE GLUC 2% CLOTH 1 EACH TOWELETTE TOPICAL (08:05)
--- NOTE | 2019-07-30 14:03 | PCM.PN.HOSP ---
Patient Problems: Active and Suspected Problems (Last Reviewed 04/01/17 @ 13:34 by Leandra Duarte) ARDS (adult respiratory distress syndrome) (Acute) Acute respiratory failure with hypoxia (Acute) Bilateral pneumonia (Acute) Subjective: Doing well, no issues overnight. Still maintaining his oxygenation on 4 L nasal cannula. Vitals/I&O's: Vital Signs Temp Pulse Resp BP Pulse Ox 97.6 F L 64 20 H 127/83 H 96 07/30/19 12:30 07/30/19 12:30 07/30/19 12:30 07/30/19 12:30 07/30/19 12:30 Oxygen Flow Rate (L/min) 4 Oxygen Delivery Method Nasal Cannula Weight: 202 lb 13.204 oz Body Mass Index (BMI) 31.1 Intake and Output for Last 24 Hours 07/28/19 07/29/19 07/30/19 23:59 23:59 23:59 Intake Total 991.54 / 996.54 472.38 / 922.38 920 / 920 Output Total 2175 / 2175 1250 / 1750 950 / 950 Balance -1183.46 / -1178.46 -777.62 / -827.62 -30 / -30 General: Alert, Oriented x3, Cooperative, No apparent distress HEENT: Atraumatic, PERRLA, EOMI, Normocephalic Oral: Moist Mucosa Neck: Supple, No JVD Lungs: Clear to auscultation, Normal air movement, No rhonchi, No wheeze, No rales, Diminished Cardiovascular: Regular rate, Regular Rhythm, Normal S1, Normal S2, No murmurs Abdomen: Soft, Non Tender, Non-Distended, No Hepato-splenomegaly Extremities: No edema, Capillary Refill Less than 3 Seconds Skin: No rashes, No breakdown Neurological: Neuro grossly intact, Sensory exam intact to light touch and pain Psych/Mental Status: Normal Affect, Appropriate Laboratory Results 07/30/19 03:15: WBC 5.9, RBC 3.95 L, Hgb 11.7 L, Hct 34.8 L, MCV 88.1, MCH 29.6, MCHC 33.6, RDW Std Deviation 38.2, RDW Coeff of David 11.9, Plt Count 449, MPV 11.5, Immature Gran % (Auto) 1.200 H, Neut % (Auto) 54.3, Lymph % (Auto) 26.6, [place] % (Auto) 13.6 H, Eos % (Auto) 3.0, Baso % (Auto) 1.3 H, Absolute Neuts (auto) 3.2, Absolute Lymphs (auto) 1.58, Nucleated RBC % 0 07/30/19 03:15: Sodium 138, Potassium 3.5, Chloride 106, Carbon Dioxide 26.0, Anion Gap 6, BUN 31 H, Creatinine 0.74, Estim Creat Clear Calc 108.24, Est GFR (MDRD) Af Amer 138, Est GFR (MDRD) Non-Af 114, BUN/Creatinine Ratio 42.0 H, Glucose 99, Calcium 8.6 Current Medications Acetaminophen (Tylenol) 650 mg PO Q6H PRN PRN PRN Reason: Pain Score 1-10/Temp > 100.7 F Albuterol Sulfate (Ventolin Aerosols) 2.5 mg INHALATION Q2H PRN PRN PRN Reason: SOB &/OR WHEEZING Last Admin: 07/23/19 23:56 Dose: 2.5 mg Documented by: Bisacodyl (Dulcolax) 10 mg RECTAL DAILY PRN PRN Reason: Constipation Chlorhexidine Gluconate () 1 each TOPICAL DAILY [facility] Last Admin: 07/30/19 08:05 Dose: 1 each Documented by: Enoxaparin Sodium (Lovenox) 40 mg SC DAILY [facility] Last Admin: 07/30/19 08:04 Dose: 40 mg Documented by: Guaifenesin (Mucinex) 1,200 mg PO BID [facility] Last Admin: 07/30/19 08:04 Dose: 1,200 mg Documented by: Sodium Chloride () 250 mls @ 15 mls/hr IV .[id number] PRN PRN Reason: Saline Flush Last Infusion: 07/24/19 00:13 Dose: Infused Documented by: Sodium Chloride () 250 mls @ 15 mls/hr IV .[id number] PRN PRN Reason: Additional IVPB Infusion Last Infusion: 07/23/19 16:06 Dose: Infused Documented by: Ondansetron HCl (Zofran) 4 mg IV Q8H PRN PRN PRN Reason: NAUSEA/VOMITING Senna/Docusate Sodium (Senokot-S, Arlette-Colace) 2 tablet PO BID [facility] Last Admin: 07/30/19 08:04 Dose: Not Given Documented by: Sodium Chloride () 10 - 40 ml IV UD PRN PRN Reason: SALINE FLUSH Last Admin: 07/27/19 09:00 Dose: 10 ml Documented by: Zinc Sulfate (Zinc Sulfate) 220 mg PO TID@0100,1000,1700 [facility] Last Admin: 07/30/19 08:04 Dose: 220 mg Documented by: STROKE Vital Signs/Narrative: Vital Signs Temp Pulse Resp BP Pulse Ox 07/30/19 12:30 97.6 F L 64 20 H 127/83 H 96 07/30/19 10:30 97.9 F 70 23 H 107/57 L 95 Medical Necessity - Tobacco Use Smoking Status: Never smoker Assessment/Plan All Active Problems (Last Reviewed 04/01/17 @ 13:34 by Leandra Duarte) COVID-19 (Acute) ARDS (adult respiratory distress syndrome) (Acute) Sepsis (Acute) Acute respiratory failure with hypoxia (Acute) Bilateral pneumonia (Acute) 1. Acute hypoxic respiratory failure secondary to ARDS from COVID-19 pneumonia/sepsis -Extubated and maintaining sats on 4 L NC -He has completed 5 days of Plaquenil, Rocephin, azithromycin -We will discontinue his Lasix for an elevation in his bicarb -Culture data is negative for any coinfection -Transaminitis, liver US was unremarkable DVT: Lovenox Inpatient E&M: [id number] Subs Hosp L2
[2019-07-31 04:30] VITALS: BP 122/73; PULSE 61; RESP 20; TEMP 37.2; O2SAT 95
[2019-07-31 06:47] LABS: Absolute Lymphocyte Count 1.33 X10^3/uL (0.83-4.51); Absolute Neutrophil Count 3.1 X10^3/uL (2.0-7.7); Basophil# 0.06 X10^3/uL; Basophil% 1.1 % (0-1); Eosinophil# 0.15 X10^3/uL; Eosinophils% 2.8 % (0-5); Hematocrit 35.2 % (40-54); Hemoglobin 12.2 g/dL (13.0-16.5); Lymphocyte # 1.33 X10^3/ul (4.0); Lymphocyte % 24.6 % (19-41); Mean Corp Hgb Conc 34.7 g/dL (32-36); Mean Corpuscular Hgb 29.5 pg (27.0-32.0); Mean Corpuscular Volume 85.2 fL (80-94); Mean Platelet Vol. 10.4 fl (6.2-12.0); Monocyte# 0.74 X10^3/uL; Monocyte% 13.7 % (0-10); NRBC Flagged by Analyzer 0 % (0-5); Neutrophil # 3.07 X10^3/uL (2.7-7.7); Neutrophil % 56.9 % (47-70); Platelet Count 447 K/mm3 (150-450); RBC Distribution Width CV 11.9 % (11.6-14.6); RBC Distribution Width SD 36.5 fl (35.1-43.9); Red Blood Count 4.13 M/mm3 (4.6-6.2); White Blood Count 5.4 K/mm3 (4.4-11.0)
[2019-07-31 07:34] LABS: ALB/GLOB Ratio 0.5 RATIO (0.9-2.4); AST(SGOT) 179 U/L (15-37); Alanine Aminotransfer ALT/SGPT 321 U/L (16-61); Albumin, Serum 2.3 g/dL (3.2-5.0); Alkaline Phosphatase 102 U/L (45-117); Anion Gap 6 (5-15); BUN 21 mg/dL (7-18); BUN/Creat Ratio 26.8 RATIO (10-20); Calcium,Total 8.6 mg/dL (8.5-10.1); Chloride 108 mmol/L (98-107); Creatinine, Serum 0.78 mg/dL (0.70-1.30); EST Glomerular Filtration Rate 107 mL/min (>60); Est Glom Filt Rate - Afr Amer 129 mL/min (>60); Estimated Creatinine Clearance 102.69 ml/min; Globulin 4.3 g/dL (2.2-4.2); Glucose 103 mg/dL (74-106); Potassium 3.7 mmol/L (3.5-5.1); Protein, Total 6.6 g/dL (6.4-8.2); Sodium Level 139 mmol/L (136-145)
[2019-07-31 10:10] VITALS: BP 110/81; PULSE 72; RESP 18; TEMP 37.1; O2SAT 95
[2019-07-31] MEDS: guaiFENesin 1,200 MG Tablet 1200 MG PO ×2 (10:12→21:43)
[2019-07-31] MEDS: Enoxaparin 40 MG/0.4 ML Syringe SC (10:12)
--- NOTE | 2019-07-31 11:06 | PN_ITS ---
Subjective: Patient did well overnight. No acute issues were reported. Patient still having significant dyspnea with exertion, but feels comfortable at rest. No fever has been noted. Patient is denying any abdominal pain, nausea or vomiting. General: Alert, Oriented x3, Cooperative, No apparent distress, Well developed, Well nourished, - - Speaking in full sentences. HEENT: Atraumatic, PERRLA, EOMI, Normocephalic, - - No scleral icterus or injection noted Oral: Moist Mucosa, No Gingival or Mucosal Lesions/ Ulcerations Neck: Supple, No JVD, No Nodes, Trachea Midline Lungs: No rhonchi, No wheeze, No rales, Diminished, - - Symmetric expansion. No dullness to percussion. Cardiovascular: Regular rate, Regular Rhythm, Normal S1, Normal S2, No murmurs, No rub noted, No Gallop Abdomen: Bowel Sounds Present, Soft, Non Tender, Non-Distended Extremities: No clubbing, No cyanosis, No edema Skin: No rashes, No breakdown Musculoskeletal: No Tenderness to Palpation of Joints or Extremities Lymphatic: No Cervical, Supraclavicular, or Inguinal Adenopathy Neurological: Cranial nerves II-XII grossly intact, Neuro grossly intact, Motor Exam 5/5 strength throughout Psych/Mental Status: Alert and oriented to time, place, person, mood and affect Vital Signs Temp Pulse Resp BP Pulse Ox 37.1 C 72 18 110/81 H 95 07/31/19 10:10 07/31/19 10:10 07/31/19 10:10 07/31/19 10:10 07/31/19 10:10 Oxygen Flow Rate (L/min) 4 Oxygen Delivery Method Nasal Cannula Weight: 92.8 kg Body Mass Index (BMI) 31.1 Intake and Output for Last 24 Hours 07/29/19 07/30/19 07/31/19 23:59 23:59 23:59 Intake Total 472.38 / 922.38 1760 / 1760 120 / 120 Output Total 1250 / 1750 950 / 950 Balance -777.62 / -827.62 810 / 810 120 / 120 Labs (Last 48 Hours) 07/30/19 07/30/19 07/31/19 03:15 03:15 06:30 WBC 5.9 5.4 RBC 3.95 L 4.13 L Hgb 11.7 L 12.2 L Hct 34.8 L 35.2 L MCV 88.1 85.2 MCH 29.6 29.5 MCHC 33.6 34.7 RDW Std Deviation 38.2 36.5 RDW Coeff of David 11.9 11.9 Plt Count 449 447 MPV 11.5 10.4 Immature Gran % (Auto) 1.200 H 0.900 Neut % (Auto) 54.3 56.9 Lymph % (Auto) 26.6 24.6 [place] % (Auto) 13.6 H 13.7 H Eos % (Auto) 3.0 2.8 Baso % (Auto) 1.3 H 1.1 H Absolute Neuts (auto) 3.2 3.1 Absolute Lymphs (auto) 1.58 1.33 Nucleated RBC % 0 0 Sodium 138 Potassium 3.5 Chloride 106 Carbon Dioxide 26.0 Anion Gap 6 BUN 31 H Creatinine 0.74 Estim Creat Clear Calc 108.24 Est GFR (MDRD) Af Amer 138 Est GFR (MDRD) Non-Af 114 BUN/Creatinine Ratio 42.0 H Glucose 99 Calcium 8.6 Total Bilirubin AST ALT Alkaline Phosphatase Total Protein Albumin Globulin Albumin/Globulin Ratio 07/31/19 06:30 WBC RBC Hgb Hct MCV MCH MCHC RDW Std Deviation RDW Coeff of David Plt Count MPV Immature Gran % (Auto) Neut % (Auto) Lymph % (Auto) [place] % (Auto) Eos % (Auto) Baso % (Auto) Absolute Neuts (auto) Absolute Lymphs (auto) Nucleated RBC % Sodium 139 Potassium 3.7 Chloride 108 H Carbon Dioxide 25.0 Anion Gap 6 BUN 21 H Creatinine 0.78 Estim Creat Clear Calc 102.69 Est GFR (MDRD) Af Amer 129 Est GFR (MDRD) Non-Af 107 BUN/Creatinine Ratio 26.8 H Glucose 103 Calcium 8.6 Total Bilirubin 0.70 AST 179 H ALT 321 H Alkaline Phosphatase 102 Total Protein 6.6 Albumin 2.3 L Globulin 4.3 H Albumin/Globulin Ratio 0.5 L Medical Necessity - Tobacco Use Smoking Status: Never smoker Assessment/Plan All Active Problems (Last Reviewed 04/01/17 @ 13:34 by Leandra Duarte) COVID-19 (Acute) ARDS (adult respiratory distress syndrome) (Acute) Sepsis (Acute) Acute respiratory failure with hypoxia (Acute) Bilateral pneumonia (Acute) RECOMMENDATIONS: 1. Continue to wean supplemental oxygen to maintain saturations at or above 90%. 2. Continue modified diet with aspiration precautions per speech therapy recommendations. 3. Encourage incentive spirometer use and mobilize patient as tolerated. 4. Physical therapy to continue to work with the patient. 5. Patient to remain in COVID precautions. 6. Walking oximetry prior to discharge. IMPRESSIONS: 1. Acute hypoxemic respiratory failure secondary to ARDS due to COVID 19 Infection Continue current supportive measures with invasive mechanical ventilatory support, employing a lung protective strategy. The patient has completed a 5- day course of azithromycin, ceftriaxone and Plaquenil. Infectious diseases is currently following. The patient passed his spontaneous breathing trial and was extubated on the morning of July 28. His supplemental oxygen will be weaned to maintain saturations at or above 90%. Continue to wean oxygen as tolerated. Patient will need a walking oximetry prior to discharge. No previous oxygen requirements, but may require oxygen with exertion on discharge for a short period of time. Patient will need to follow-up in the pulmonary office following discharge. He will remain on a modified diet with aspiration precautions per speech therapy recommendations. Encourage incentive spirometer use and mobilize patient as tolerated. Physical therapy to continue to work with the patient. 2. Chronic pain syndrome/obesity/elevated transaminases of unclear etiology Complicates care, management, recovery and prognosis. Physical therapy to work with the patient. Inpatient E&M: [id number] [facility] L3
--- NOTE | 2019-07-31 12:34 | PN_ITS ---
Patient Problems: Active and Suspected Problems (Last Reviewed 04/01/17 @ 13:34 by Leandra Duarte) ARDS (adult respiratory distress syndrome) (Acute) Acute respiratory failure with hypoxia (Acute) Bilateral pneumonia (Acute) Subjective: Patient seen and examined. He has no complaints. Cough is improved and shortness of breath is better. He still remains on 4 L of oxygen. Review of systems otherwise negative. Vitals have remained stable. Vitals/I&O's: Vital Signs Temp Pulse Resp BP Pulse Ox 98.7 F 72 18 110/81 H 95 07/31/19 10:10 07/31/19 10:10 07/31/19 10:10 07/31/19 10:10 07/31/19 10:10 Oxygen Flow Rate (L/min) 4 Oxygen Delivery Method Nasal Cannula Weight: 204 lb 9.423 oz Body Mass Index (BMI) 31.1 Intake and Output for Last 24 Hours 07/29/19 07/30/19 07/31/19 23:59 23:59 23:59 Intake Total 472.38 / 922.38 1760 / 1760 120 / 120 Output Total 1250 / 1750 950 / 950 Balance -777.62 / -827.62 810 / 810 120 / 120 General: Alert, Oriented x3, Cooperative, No apparent distress HEENT: Atraumatic, PERRLA, EOMI, Normocephalic Oral: Moist Mucosa Neck: Supple, No JVD, Negative Carotid Bruits, No Nodes Lungs: Clear to auscultation, Normal air movement, No rhonchi, No wheeze, - - on 4L of oxygen Cardiovascular: Regular rate, Regular Rhythm, Normal S1, Normal S2, No murmurs Abdomen: Bowel Sounds Present, Soft, Non Tender, Non-Distended, No Hepato- splenomegaly Extremities: No clubbing, No cyanosis, No edema, Capillary Refill Less than 3 Seconds Skin: No rashes, No breakdown Musculoskeletal: No Tenderness to Palpation of Joints or Extremities Lymphatic: No Cervical, Supraclavicular, or Inguinal Adenopathy Neurological: Cranial nerves II-XII grossly intact, Neuro grossly intact, Motor Exam 5/5 strength throughout Psych/Mental Status: Normal Affect, Appropriate, Alert and oriented to time, place, person, mood and affect Laboratory Results 07/31/19 06:30: WBC 5.4, RBC 4.13 L, Hgb 12.2 L, Hct 35.2 L, MCV 85.2, MCH 29.5, MCHC 34.7, RDW Std Deviation 36.5, RDW Coeff of David 11.9, Plt Count 447, MPV 10.4, Immature Gran % (Auto) 0.900, Neut % (Auto) 56.9, Lymph % (Auto) 24.6, [place] % (Auto) 13.7 H, Eos % (Auto) 2.8, Baso % (Auto) 1.1 H, Absolute Neuts (au to) 3.1, Absolute Lymphs (auto) 1.33, Nucleated RBC % 0 07/31/19 06:30: Sodium 139, Potassium 3.7, Chloride 108 H, Carbon Dioxide 25.0, Anion Gap 6, BUN 21 H, Creatinine 0.78, Estim Creat Clear Calc 102.69, Est GFR (MDRD) Af Amer 129, Est GFR (MDRD) Non-Af 107, BUN/Creatinine Ratio 26.8 H, Glucose 103, Calcium 8.6, Total Bilirubin 0.70, AST 179 H, ALT 321 H, Alkaline Phosphatase 102, Total Protein 6.6, Albumin 2.3 L, Globulin 4.3 H, Albumin/Globulin Ratio 0.5 L Diagnostic Data Chest X-Ray 07/26/19 04:48 IMPRESSION: The endotracheal tube is at the 3 cm proximal to the jena. Since prior study, there has been progressive bilateral peripheral based infiltrates. Electronically Signed: Lambert Cason, at 8:16 EDT , Service support , Liver Ultrasound 07/27/19 06:12 IMPRESSION: Mild heterogeneous echotexture of the hepatic parenchyma. 1.4 cm x 1.5 cm x 1.4 cm echogenic nodule in the central right lobe of the liver suggestive of an hemangioma. Sludge is seen within the gallbladder lumen. Electronically Signed: Labmert Cason, at 10:41 EDT , Service support , Current Medications Acetaminophen (Tylenol) 650 mg PO Q6H PRN PRN PRN Reason: Pain Score 1-10/Temp > 100.7 F Albuterol Sulfate (Ventolin Aerosols) 2.5 mg INHALATION Q2H PRN PRN PRN Reason: SOB &/OR WHEEZING Last Admin: 07/23/19 23:56 Dose: 2.5 mg Documented by: Bisacodyl (Dulcolax) 10 mg RECTAL DAILY PRN PRN Reason: Constipation Chlorhexidine Gluconate () 1 each TOPICAL DAILY [facility] Last Admin: 07/30/19 08:05 Dose: 1 each Documented by: Enoxaparin Sodium (Lovenox) 40 mg SC DAILY [facility] Last Admin: 07/31/19 10:12 Dose: 40 mg Documented by: Guaifenesin (Mucinex) 1,200 mg PO BID [facility] Last Admin: 07/31/19 10:12 Dose: 1,200 mg Documented by: Sodium Chloride () 250 mls @ 15 mls/hr IV .[id number] PRN PRN Reason: Saline Flush Last Infusion: 07/24/19 00:13 Dose: Infused Documented by: Sodium Chloride () 250 mls @ 15 mls/hr IV .[id number] PRN PRN Reason: Additional IVPB Infusion Last Infusion: 07/23/19 16:06 Dose: Infused Documented by: Ondansetron HCl (Zofran) 4 mg IV Q8H PRN PRN PRN Reason: NAUSEA/VOMITING Senna/Docusate Sodium (Senokot-S, Arlette-Colace) 2 tablet PO BID [facility] Last Admin: 07/31/19 10:24 Dose: Not Given Documented by: Sodium Chloride () 10 - 40 ml IV UD PRN PRN Reason: SALINE FLUSH Last Admin: 07/27/19 09:00 Dose: 10 ml Documented by: Zinc Sulfate (Zinc Sulfate) 220 mg PO TID@0100,1000,1700 [facility] Last Admin: 07/31/19 10:12 Dose: 220 mg Documented by: STROKE Vital Signs/Narrative: Vital Signs Temp Pulse Resp BP Pulse Ox 07/31/19 10:10 98.7 F 72 18 110/81 H 95 Medical Necessity - Tobacco Use Smoking Status: Never smoker Assessment/Plan All Active Problems (Last Reviewed 04/01/17 @ 13:34 by Leandra Reddy COVID-19 (Acute) ARDS (adult respiratory distress syndrome) (Acute) Sepsis (Acute) Acute respiratory failure with hypoxia (Acute) Bilateral pneumonia (Acute) 1. Acute hypoxic respiratory failure due to COVID 19 pneumonia * was intubated for 11 days and subsequently extubated. * now on 4 L of oxygen. * Breathing treatments with duonebs. * Titrate oxygen to maintain sats>90% * 2. Sepsis due to pneumonia * completed 5 dfayus of IV azithromycin and plaquenil, as well as rocephin * stable 3. COVID 19 pneumonia * as under 2 DVT prophylaxis: lovenox Disposition: for likely DC tomorrow Inpatient E&M: [id number] [facility] Hosp L2
--- NOTE | 2019-07-31 12:37 | CASEMGMT ---
Addendum entered by Chucky Gross 07/31/19 13:00: Called again to [email or web address]. Per rep, phone # to call will be , option 3. For home oxygen- will need script and demographic sheet faxed to [email or web address] @ . Case will be reviewed, and authorization # given with name of [employer]. Then oxygen referral packet will need to be faxed to [facility] for processing. This often requires a 24 hour time to complete process. Luis Antonio MATHIAS Original Note: MELISA IBRAHIM Note: Pt remains on 4L NC currently. Per physical therapy note 07/29- no therapy recommended. Call to [employer] customer service to inquire re: [facility] YONI. (Lengthy call due to long wait times). Meron goes through [email or web address]. Call to [email or web address] to determine oxygen providers and process for setting up Home O2. # rang numerous times, no answer. Will need to call again. ([phone]). Luis Antonio DE LEON
--- NOTE | 2019-07-31 14:53 | PCM.PN.ID ---
Patient Problems: Active and Suspected Problems (Last Reviewed 04/01/17 @ 13:34 by Leandra Duarte) ARDS (adult respiratory distress syndrome) (Acute) Acute respiratory failure with hypoxia (Acute) Bilateral pneumonia (Acute) Subjective: Feeling better, mild sputum, mild dyspnea, no fever. Some sore throat. - Physical Exam Vitals/I&O's: Vital Signs Temp Pulse Resp BP Pulse Ox 98.7 F 72 18 110/81 H 95 07/31/19 10:10 07/31/19 10:10 07/31/19 10:10 07/31/19 10:10 07/31/19 10:10 Oxygen Flow Rate (L/min) 4 Oxygen Delivery Method Nasal Cannula Weight: 92.8 kg Body Mass Index (BMI) 31.1 Intake and Output for Last 24 Hours 07/29/19 07/30/19 07/31/19 23:59 23:59 23:59 Intake Total 472.38 / 922.38 1760 / 1760 370 / 370 Output Total 1250 / 1750 950 / 950 Balance -777.62 / -827.62 810 / 810 370 / 370 General: Alert, Cooperative, No apparent distress Lungs: Clear to auscultation, Normal air movement, Diminished Cardiovascular: Regular rate, Regular Rhythm Abdomen: Soft, Non Tender, Non-Distended Skin: No rashes Laboratory Results 07/31/19 06:30: WBC 5.4, RBC 4.13 L, Hgb 12.2 L, Hct 35.2 L, MCV 85.2, MCH 29.5, MCHC 34.7, RDW Std Deviation 36.5, RDW Coeff of David 11.9, Plt Count 447, MPV 10.4, Immature Gran % (Auto) 0.900, Neut % (Auto) 56.9, Lymph % (Auto) 24.6, [place] % (Auto) 13.7 H, Eos % (Auto) 2.8, Baso % (Auto) 1.1 H, Absolute Neuts (auto) 3.1, Absolute Lymphs (auto) 1.33, Nucleated RBC % 0 07/31/19 06:30: Sodium 139, Potassium 3.7, Chloride 108 H, Carbon Dioxide 25.0, Anion Gap 6, BUN 21 H, Creatinine 0.78, Estim Creat Clear Calc 102.69, Est GFR (MDRD) Af Amer 129, Est GFR (MDRD) Non-Af 107, BUN/Creatinine Ratio 26.8 H, Glucose 103, Calcium 8.6, Total Bilirubin 0.70, AST 179 H, ALT 321 H, Alkaline Phosphatase 102, Total Protein 6.6, Albumin 2.3 L, Globulin 4.3 H, Albumin/Globulin Ratio 0.5 L Current Medications Acetaminophen (Tylenol) 650 mg PO Q6H PRN PRN PRN Reason: Pain Score 1-10/Temp > 100.7 F Albuterol Sulfate (Ventolin Aerosols) 2.5 mg INHALATION Q2H PRN PRN PRN Reason: SOB &/OR WHEEZING Last Admin: 07/23/19 23:56 Dose: 2.5 mg Documented by: Bisacodyl (Dulcolax) 10 mg RECTAL DAILY PRN PRN Reason: Constipation Enoxaparin Sodium (Lovenox) 40 mg SC DAILY [facility] Last Admin: 07/31/19 10:12 Dose: 40 mg Documented by: Guaifenesin (Mucinex) 1,200 mg PO BID [facility] Last Admin: 07/31/19 10:12 Dose: 1,200 mg Documented by: Sodium Chloride () 250 mls @ 15 mls/hr IV .[id number] PRN PRN Reason: Saline Flush Last Infusion: 07/24/19 00:13 Dose: Infused Documented by: Sodium Chloride () 250 mls @ 15 mls/hr IV .[id number] PRN PRN Reason: Additional IVPB Infusion Last Infusion: 07/23/19 16:06 Dose: Infused Documented by: Ondansetron HCl (Zofran) 4 mg IV Q8H PRN PRN PRN Reason: NAUSEA/VOMITING Senna/Docusate Sodium (Senokot-S, Arlette-Colace) 2 tablet PO BID [facility] Last Admin: 07/31/19 10:24 Dose: Not Given Documented by: Sodium Chloride () 10 - 40 ml IV UD PRN PRN Reason: SALINE FLUSH Last Admin: 07/27/19 09:00 Dose: 10 ml Documented by: Zinc Sulfate (Zinc Sulfate) 220 mg PO TID@0100,1000,1700 [facility] Last Admin: 07/31/19 10:12 Dose: 220 mg Documented by: Medical Necessity - Tobacco Use Smoking Status: Never smoker Route of nutrition/ use of supplements: [] Nutritional Intake: [] IV Site: [] [place] Catheter: [] - Assessment/Plan Antibiotics: [] Assessment/Plan: [] Active and Suspected Problems (Last Reviewed 04/01/17 @ 13:34 by Leandra Duarte) Suspected 2019 novel coronavirus infection (Acute) ARDS (adult respiratory distress syndrome) (Acute) Sepsis (Acute) Acute respiratory failure with hypoxia (Acute) Bilateral pneumonia (Acute) Acute hypoxic resp failure with sepsis - covid (+). Wbc normal now, fever curve improved. Resp pcr panel was neg. / started empiric 5 day course of azithro/plaquenil. Now some transaminitis, possibly related to plaquenil. Liver u/s done. LFTs improving. Now off vent. Will follow
[2019-07-31 17:27] VITALS: BP 139/80; PULSE 70; RESP 18; TEMP 36.8; O2SAT 97
[2019-07-31 21:52] VITALS: BP 120/73; PULSE 74; RESP 20; TEMP 37.3; O2SAT 92
[2019-07-31 22:02] VITALS: PULSE 68; RESP 20; O2SAT 92
[2019-08-01] VITALS (9 sets, daily range): BP systolic 116–119; BP diastolic 73–79; PULSE 65–76; RESP 18–20; TEMP 37.1–37.3; O2SAT 85–94
--- NOTE | 2019-08-01 08:17 | PN_ITS ---
Subjective: Patient did well overnight. Patient has been able to be weaned to 2 L nasal cannula. Patient reports subjective improvement in exercise tolerance. Patient is not reporting any chest pain or productive cough. Patient states he can walk to the bathroom with little difficulty. Patient does not have supplemental oxygen at home General: Alert, Oriented x3, Cooperative, No apparent distress, Well developed, Well nourished, - - No conversational dyspnea. HEENT: Atraumatic, PERRLA, EOMI, Normocephalic, - - No scleral icterus or injection noted Oral: Moist Mucosa, No Gingival or Mucosal Lesions/ Ulcerations Neck: Supple, No JVD, No Nodes, Trachea Midline Lungs: No rhonchi, No wheeze, No rales, Diminished, - - Symmetric expansion. Better air exchange compared to yesterday. Cardiovascular: Regular rate, Regular Rhythm, Normal S1, Normal S2, No murmurs, No rub noted, No Gallop Abdomen: Bowel Sounds Present, Soft, Non Tender, Non-Distended Extremities: No clubbing, No cyanosis, No edema, Capillary Refill Less than 3 Seconds Skin: No rashes, No breakdown Musculoskeletal: No Tenderness to Palpation of Joints or Extremities Lymphatic: No Cervical, Supraclavicular, or Inguinal Adenopathy Neurological: Cranial nerves II-XII grossly intact, Neuro grossly intact, Motor Exam 5/5 strength throughout Psych/Mental Status: Alert and oriented to time, place, person, mood and affect Vital Signs Temp Pulse Resp BP Pulse Ox 37.1 C 68 20 H 117/73 94 08/01/19 04:00 08/01/19 04:10 08/01/19 04:10 08/01/19 04:00 08/01/19 04:10 Oxygen Flow Rate (L/min) 2 Oxygen Delivery Method Nasal Cannula Weight: 93.077 kg Body Mass Index (BMI) 31.1 Intake and Output for Last 24 Hours 07/30/19 07/31/19 08/01/19 23:59 23:59 23:59 Intake Total 1760 / 1760 1450 / 1450 200 / 200 Output Total 950 / 950 Balance 810 / 810 1450 / 1450 200 / 200 Labs (Last 48 Hours) 07/31/19 07/31/19 06:30 06:30 WBC 5.4 RBC 4.13 L Hgb 12.2 L Hct 35.2 L MCV 85.2 MCH 29.5 MCHC 34.7 RDW Std Deviation 36.5 RDW Coeff of David 11.9 Plt Count 447 MPV 10.4 Immature Gran % (Auto) 0.900 Neut % (Auto) 56.9 Lymph % (Auto) 24.6 [place] % (Auto) 13.7 H Eos % (Auto) 2.8 Baso % (Auto) 1.1 H Absolute Neuts (auto) 3.1 Absolute Lymphs (auto) 1.33 Nucleated RBC % 0 Sodium 139 Potassium 3.7 Chloride 108 H Carbon Dioxide 25.0 Anion Gap 6 BUN 21 H Creatinine 0.78 Estim Creat Clear Calc 102.69 Est GFR (MDRD) Af Amer 129 Est GFR (MDRD) Non-Af 107 BUN/Creatinine Ratio 26.8 H Glucose 103 Calcium 8.6 Total Bilirubin 0.70 AST 179 H ALT 321 H Alkaline Phosphatase 102 Total Protein 6.6 Albumin 2.3 L Globulin 4.3 H Albumin/Globulin Ratio 0.5 L Medical Necessity - Tobacco Use Smoking Status: Never smoker Assessment/Plan All Active Problems (Last Reviewed 04/01/17 @ 13:34 by Leandra Duarte) COVID-19 (Acute) ARDS (adult respiratory distress syndrome) (Acute) Sepsis (Acute) Acute respiratory failure with hypoxia (Acute) Bilateral pneumonia (Acute) RECOMMENDATIONS: 1. Continue to wean supplemental oxygen to maintain saturations at or above 90%. 2. Continue modified diet per speech therapy recommendations. 3. Encourage incentive spirometer use and mobilize patient as tolerated. 4. Physical therapy to continue to work with the patient. 5. Patient to remain in COVID precautions. 6. Walking oximetry prior to discharge. Proceed with discharge planning 7. Patient should have a pulse ox at home to monitor saturations. Patient can follow-up with a virtual visit in 4 to 6 weeks with nurse practitioner IMPRESSIONS: 1. Acute hypoxemic respiratory failure secondary to ARDS due to COVID 19 Infection Continue current supportive measures with invasive mechanical ventilatory support, employing a lung protective strategy. The patient has completed a 5- day course of azithromycin, ceftriaxone and Plaquenil. Infectious diseases is currently following. The patient passed his spontaneous breathing trial and was extubated on the morning of July 28. His supplemental oxygen will be weaned to maintain saturations at or above 90%. Continue to wean oxygen as tolerated. Patient will need a walking oximetry prior to discharge. No previous oxygen requirements, but may require oxygen with exertion on discharge for a short period of time. Patient will need to follow-up in the pulmonary office following discharge per recommendations above. Await further Speech therapy recommendations. Encourage incentive spirometer use and mobilize patient as tolerated. Physical therapy to continue to work with the patient. 2. Chronic pain syndrome/obesity/elevated transaminases of unclear etiology Complicates care, management, recovery and prognosis. Physical therapy to work with the patient. Inpatient E&M: [id number] [facility] Hosp L2
[2019-08-01] MEDS: guaiFENesin 1,200 MG Tablet 1200 MG PO (08:42)
[2019-08-01] MEDS: Enoxaparin 40 MG/0.4 ML Syringe SC (08:43)
--- NOTE | 2019-08-01 09:15 | NURSING ---
weaned oxygen to RA off the 2L pt was on.. cont. pulse ox placed to monitor pt saturations while in room.
--- NOTE | 2019-08-01 10:46 | NURSING ---
Addendum entered by Sharmila Coronel 08/01/19 10:56: RA walking was 85% not 88% Original Note: oxygen trial done in room... sitting on edge of bed RA 94% approx 5mins walked pt 10 laps around the room approx 5mins - RA 88% placed 2L 92% prone position in bed RA 88-91% approx 5mins laying flat on back in bed RA 88-89% RA approx 5mins HOB 30degrees RA 89-91% approx 5mins.
--- NOTE | 2019-08-01 11:12 | CASEMGMT ---
Addendum entered by Chucky Gross 08/01/19 12:40: Call to [employer], . Portable tank will be delivered to [facility] within the hour. No further information is needed. Luis Antonio BOND RN AC Original Note: MELISA IBRAHIM Note: Oxygen documentation, clinical and script faxed to [facility] @ . Call to [facility] -Requested information be given over phone to expedite authorization. # [id number] and [employer] will be providing oxygen. Per rep, they will contact [employer], give them all information and have portable tank delivered to hospital. Luis Antonio VINCENT CM
--- NOTE | 2019-08-01 11:17 | PN_ITS ---
Patient Problems: Active and Suspected Problems (Last Reviewed 04/01/17 @ 13:34 by Leandra Duarte) ARDS (adult respiratory distress syndrome) (Acute) Acute respiratory failure with hypoxia (Acute) Bilateral pneumonia (Acute) Subjective: Patient seen and examined. He felt well and had no complaints. Shortness of breath had improved and he denied any cough. Review of systems otherwise negative. Labs and vitals reviewed. Vitals/I&O's: Vital Signs Temp Pulse Resp BP Pulse Ox 98.7 F 76 18 119/79 94 08/01/19 08:40 08/01/19 08:40 08/01/19 08:40 08/01/19 08:40 08/01/19 10:46 Oxygen Flow Rate (L/min) [ 2 AMBULATION with Oxygen] Oxygen Flow Rate (L/min) 2 Oxygen Delivery Method Room Air Weight: 205 lb 3.2 oz Body Mass Index (BMI) 31.1 Intake and Output for Last 24 Hours 07/30/19 07/31/19 08/01/19 23:59 23:59 23:59 Intake Total 1760 / 1760 1450 / 1450 200 / 200 Output Total 950 / 950 Balance 810 / 810 1450 / 1450 200 / 200 General: Alert, Oriented x3, Cooperative, No apparent distress HEENT: Atraumatic, PERRLA, EOMI, Normocephalic Oral: Moist Mucosa Neck: Supple, No JVD, Negative Carotid Bruits, No Nodes Lungs: Clear to auscultation, Normal air movement, No rhonchi, No wheeze, - - on 2L of oxygen Cardiovascular: Regular rate, Regular Rhythm, Normal S1, Normal S2, No murmurs Abdomen: Bowel Sounds Present, Soft, Non Tender, Non-Distended, No Hepato- splenomegaly Extremities: No clubbing, No cyanosis, No edema, Capillary Refill Less than 3 Seconds Skin: No rashes, No breakdown Musculoskeletal: No Tenderness to Palpation of Joints or Extremities Lymphatic: No Cervical, Supraclavicular, or Inguinal Adenopathy Neurological: Cranial nerves II-XII grossly intact, Neuro grossly intact, Motor Exam 5/5 strength throughout Psych/Mental Status: Normal Affect, Appropriate, Alert and oriented to time, place, person, mood and affect Current Medications Acetaminophen (Tylenol) 650 mg PO Q6H PRN PRN PRN Reason: Pain Score 1-10/Temp > 100.7 F Albuterol Sulfate (Ventolin Aerosols) 2.5 mg INHALATION Q2H PRN PRN PRN Reason: SOB &/OR WHEEZING Last Admin: 07/23/19 23:56 Dose: 2.5 mg Documented by: Bisacodyl (Dulcolax) 10 mg RECTAL DAILY PRN PRN Reason: Constipation Enoxaparin Sodium (Lovenox) 40 mg SC DAILY [facility] Last Admin: 08/01/19 08:43 Dose: 40 mg Documented by: Guaifenesin (Mucinex) 1,200 mg PO BID [facility] Last Admin: 08/01/19 08:42 Dose: 1,200 mg Documented by: Sodium Chloride () 250 mls @ 15 mls/hr IV .[id number] PRN PRN Reason: Saline Flush Last Infusion: 07/24/19 00:13 Dose: Infused Documented by: Sodium Chloride () 250 mls @ 15 mls/hr IV .[id number] PRN PRN Reason: Additional IVPB Infusion Last Infusion: 07/23/19 16:06 Dose: Infused Documented by: Ondansetron HCl (Zofran) 4 mg IV Q8H PRN PRN PRN Reason: NAUSEA/VOMITING Senna/Docusate Sodium (Senokot-S, Arlette-Colace) 2 tablet PO BID [facility] Last Admin: 08/01/19 08:44 Dose: Not Given Documented by: Sodium Chloride () 10 - 40 ml IV UD PRN PRN Reason: SALINE FLUSH Last Admin: 07/27/19 09:00 Dose: 10 ml Documented by: Zinc Sulfate (Zinc Sulfate) 220 mg PO TID@0100,1000,1700 [facility] Last Admin: 08/01/19 08:43 Dose: 220 mg Documented by: STROKE Vital Signs/Narrative: Vital Signs Temp Pulse Resp BP Pulse Ox Pulse Ox Pulse Ox 08/01/19 10:46 85 92 08/01/19 10:45 85 08/01/19 09:17 91 08/01/19 08:59 92 08/01/19 08:40 98.7 F 76 18 119/79 94 Pulse Ox 08/01/19 10:46 94 08/01/19 10:45 08/01/19 09:17 08/01/19 08:59 08/01/19 08:40 Medical Necessity - Tobacco Use Smoking Status: Never smoker Assessment/Plan All Active Problems (Last Reviewed 04/01/17 @ 13:34 by Leandra Duarte) COVID-19 (Acute) ARDS (adult respiratory distress syndrome) (Acute) Sepsis (Acute) Acute respiratory failure with hypoxia (Acute) Bilateral pneumonia (Acute) 1. Acute hypoxic respiratory failure due to COVID 19 pneumonia * was intubated for 11 days and subsequently extubated. * weaned down from 4L to 2L of oxygen * Breathing treatments with duonebs. * Titrate oxygen to maintain sats>90% * ambulatory pulse ox showed that he was saturating at 85% with ambulation on room air, and required 2L of oxygen to come up to >90% * he therefore qualifies for home oxygen. * 2. Sepsis due to pneumonia * completed 5 dfayus of IV azithromycin and plaquenil, as well as rocephin * stable 3. COVID 19 pneumonia * as under 2 DVT prophylaxis: lovenox Disposition: for likely DC tomorrow, as he has to wait for insurance approval for oxygen. Inpatient E&M: 27974 Subs Hosp L2
--- NOTE | 2019-08-01 13:04 | DCINST_ITS ---
- Discharge Diagnoses Current Active Problems: Current Active and Chronic Problems (Last Reviewed 04/01/17 @ 13:34 by Leandra Duarte) ARDS (adult respiratory distress syndrome) (Acute) Acute respiratory failure with hypoxia (Acute) Bilateral pneumonia (Acute) You will use the following diet at home:: Cardiac Your food should be the consistency of: Regular Your liquids should be the consistency of: Regular/Thin Discharge Activity: Return to Normal Activity Call your doctor if you observe: Fever of 101 or Higher, Shortness of breath, Dizziness, Swelling in the ankles, Chest pain Instructions: Sepsis, Inside the ICU (Intensive Care Unit), Pneumonia, Treating Pneumonia Additional Instructions: use oxygen as needed for shortness of breath Allergies/Adverse Reactions: Allergies No Known Allergies Allergy (Verified 07/19/19 16:00) Medications to take at Discharge Aspirin E.C. [Ecotrin] 81 mg PO DAILY@0800 03/18/17 Albuterol Inhaler [Ventolin Hfa] 2 puff INHALATION Q4H PRN PRN #1 inhaler 07/17/19 Meloxicam 15 mg PO DAILY 07/17/19 Multivitamin [Multiple Vitamins] 1 tab PO DAILY 07/19/19 Tadalafil 10 mg PO DAILY PRN PRN 07/19/19 Primary Care Physician: Jewels Hernandez MD [Primary Care Provider] - Please follow up with your Primary Care Physician in: 1-2 weeks Test Results: Test results from this visit will be discussed in further detail at your follow- up appointment, if applicable. Please Follow Up With: Cristino Carroll MD When: 2-3 weeks Please Follow Up With: Mario Caldwell MD When: 2-4 weeks Proposed Discharge Date: 08/01/19
--- NOTE | 2019-08-01 13:09 | DS.PCM_ITS ---
Discharge Date and Diagnosis - Problem List Patient Problems: Active and Suspected Problems (Last Reviewed 04/01/17 @ 13:34 by Leandra Duarte) ARDS (adult respiratory distress syndrome) (Acute) Acute respiratory failure with hypoxia (Acute) Bilateral pneumonia (Acute) Date of Admission: 07/19/19 Date of Discharge: 08/01/19 - Primary Discharge Diagnosis Active and Suspected Problems (Last Reviewed 04/01/17 @ 13:34 by Leandra Duarte) ARDS (adult respiratory distress syndrome) (Acute) Acute respiratory failure with hypoxia (Acute) Bilateral pneumonia (Acute) COVID pneumonia Hospital Course and Treatment Imaging Results: Diagnostic Data Chest X-Ray 07/26/19 04:48 IMPRESSION: The endotracheal tube is at the 3 cm proximal to the jena. Since prior study, there has been progressive bilateral peripheral based infiltrates. Electronically Signed: Lambert Cason, at 8:16 EDT , Service support , Liver Ultrasound 07/27/19 06:12 IMPRESSION: Mild heterogeneous echotexture of the hepatic parenchyma. 1.4 cm x 1.5 cm x 1.4 cm echogenic nodule in the central right lobe of the liver suggestive of an hemangioma. Sludge is seen within the gallbladder lumen. Electronically Signed: Lambert Cason, at 10:41 EDT , Service support , pulmonology infectious disease Operations: None Procedures: None Summary of Care Provided: The patient is a 63 year old M with a past medical history as outlined was admitted through the ED on 07/19/2019 with a complaint of fever, cough and shortness of breath for about 5 days prior to admission. Patient had been seen in the ED on 07/16/2016 testing for influenza and RSV were negative. He was discharged on azithromycin and bronchodilator inhaler. However symptoms worsen so he came back to the ED on 07/19/2019. He was found to be hypoxic and saturating at 82% on 15 L of oxygen via nonrebreather mask. He was also febrile with temperature 101.9 ?F and tachycardic with respiratory rate of 57. On room air he was saturating at 71%. CBC showed WBC of 15.5 and ABG showed pH of 7.52 with PCO2 of 23.7. Chest x-ray showed thickly multifocal bilateral pulmonary opacities consistent with acute infection. He was emergently intubated in the ED and transferred to the ICU. He was admitted and managed for acute hypoxic respiratory failure due to pneumonia and suspected COVID infection. He was started on IV Zosyn and blood cultures were ordered. Pulmonology and infectious disease were consulted. Also on admission, PEEP had to be increased to 12 while she was intubated and also had a persistent fever which was responsive partially to Tylenol. He was subsequently also diagnosed with ARDS was in the ICU. His PEEP was gradually weaned down. Patient was intubated for 11 days and subsequently extubated on 07/29/2019. Blood cultures and urine culture showed no growth and sputum culture was negative. Coronavirus RNA was positive on July 21, 2019. Patient was also put on azithromycin and Plaquenil and completed a 5- day course of it. Zosyn was also transitioned to IV ceftriaxone and he completed 5 days of it. [] Patient was transferred to medical surgical unit after extubation. He remained stable and was initially requiring up to 4 L of supplemental oxygen by nasal cannula. However this was successfully weaned down to 2 L of oxygen. Patient remained stable and was discharged home on 08/01/2019. Ambulatory pulse ox done prior to discharge showed that the saturation dropped to 85% on room air with ambulation and it came up to 92% on 2 L of oxygen was ambulating. Patient therefore qualified for home oxygen of 2 L with ambulation. He was discharged home on 08/01/2019 with 2 L of oxygen and he is to follow-up with his primary care doctor, pulmonology and infectious diseases within 1 to 2 weeks. Patient seen and examined prior to discharge. He felt well and had no complaints. He denied any cough or shortness of breath, fever or chills, nausea vomiting. Review systems otherwise negative. Labs and vitals reviewed. Home medication reviewed and reconciled. o/e: Vital Signs Pulse Ox Pulse Ox Pulse Ox Pulse Ox 08/01/19 10:46 85 92 94 08/01/19 10:45 85 General: Alert, Oriented x3, Cooperative, No apparent distress HEENT: Atraumatic, PERRLA, EOMI, Normocephalic Oral: Moist Mucosa Neck: Supple, No JVD, Negative Carotid Bruits, No Nodes Lungs: Clear to auscultation, Normal air movement, No rhonchi, No wheeze, - - on 2L of oxygen Cardiovascular: Regular rate, Regular Rhythm, Normal S1, Normal S2, No murmurs Abdomen: Bowel Sounds Present, Soft, Non Tender, Non-Distended, No Hepato- splenomegaly Extremities: No clubbing, No cyanosis, No edema, Capillary Refill Less than 3 Seconds Skin: No rashes, No breakdown Musculoskeletal: No Tenderness to Palpation of Joints or Extremities Lymphatic: No Cervical, Supraclavicular, or Inguinal Adenopathy Neurological: Cranial nerves II-XII grossly intact, Neuro grossly intact, Motor Exam 5/5 strength throughout Psych/Mental Status: Normal Affect, Appropriate, Alert and oriented to time, place, person, mood and affect Plan is for discharge home today. Patient Problems: Active and Suspected Problems (Last Reviewed 04/01/17 @ 13:34 by Leandra Duarte) ARDS (adult respiratory distress syndrome) (Acute) Acute respiratory failure with hypoxia (Acute) Bilateral pneumonia (Acute) - Physical Exam Vitals/I&O's: Vital Signs Temp Pulse Resp BP Pulse Ox 98.7 F 76 18 119/79 94 08/01/19 08:40 08/01/19 08:40 08/01/19 08:40 08/01/19 08:40 08/01/19 10:46 Oxygen Flow Rate (L/min) [ 2 AMBULATION with Oxygen] Oxygen Flow Rate (L/min) 2 Oxygen Delivery Method Room Air Weight: 205 lb 3.2 oz Body Mass Index (BMI) 31.1 Intake and Output for Last 24 Hours 07/30/19 07/31/19 08/01/19 23:59 23:59 23:59 Intake Total 1760 / 1760 1450 / 1450 440 / 440 Output Total 950 / 950 Balance 810 / 810 1450 / 1450 440 / 440 Current Medications Acetaminophen (Tylenol) 650 mg PO Q6H PRN PRN PRN Reason: Pain Score 1-10/Temp > 100.7 F Albuterol Sulfate (Ventolin Aerosols) 2.5 mg INHALATION Q2H PRN PRN PRN Reason: SOB &/OR WHEEZING Last Admin: 07/23/19 23:56 Dose: 2.5 mg Documented by: Bisacodyl (Dulcolax) 10 mg RECTAL DAILY PRN PRN Reason: Constipation Enoxaparin Sodium (Lovenox) 40 mg SC DAILY [facility] Last Admin: 08/01/19 08:43 Dose: 40 mg Documented by: Guaifenesin (Mucinex) 1,200 mg PO BID [facility] Last Admin: 08/01/19 08:42 Dose: 1,200 mg Documented by: Sodium Chloride () 250 mls @ 15 mls/hr IV .[id number] PRN PRN Reason: Saline Flush Last Infusion: 07/24/19 00:13 Dose: Infused Documented by: Sodium Chloride () 250 mls @ 15 mls/hr IV .[id number] PRN PRN Reason: Additional IVPB Infusion Last Infusion: 07/23/19 16:06 Dose: Infused Documented by: Ondansetron HCl (Zofran) 4 mg IV Q8H PRN PRN PRN Reason: NAUSEA/VOMITING Senna/Docusate Sodium (Senokot-S, Arlette-Colace) 2 tablet PO BID [facility] Last Admin: 08/01/19 08:44 Dose: Not Given Documented by: Sodium Chloride () 10 - 40 ml IV UD PRN PRN Reason: SALINE FLUSH Last Admin: 07/27/19 09:00 Dose: 10 ml Documented by: Zinc Sulfate (Zinc Sulfate) 220 mg PO TID@0100,1000,1700 [facility] Last Admin: 08/01/19 08:43 Dose: 220 mg Documented by: Discharge Diet: Low fat/ Low Cholesterol Discharge Activity: Return to Normal Activity Call your doctor if you observe: Fever of 101 or Higher, Shortness of breath, Dizziness, Swelling in the ankles, Chest pain Home Medications: Medications to take at Discharge Aspirin E.C. [Ecotrin] 81 mg PO DAILY@0800 03/18/17 Albuterol Inhaler [Ventolin Hfa] 2 puff INHALATION Q4H PRN PRN #1 inhaler 07/17/19 Meloxicam 15 mg PO DAILY 07/17/19 Multivitamin [Multiple Vitamins] 1 tab PO DAILY 07/19/19 Tadalafil 10 mg PO DAILY PRN PRN 07/19/19 Primary Care Physician: Jewels Hernandez MD [Primary Care Provider] - Please follow up with your Primary Care Physician in: 1-2 weeks Please Follow Up With: Cristino Carroll MD When: 2-3 weeks Please Follow Up With: Mario Caldwell MD When: 2-4 weeks Patient Instructions: Treating Pneumonia, Inside the ICU (Intensive Care Unit), Sepsis, Pneumonia Disposition: Home Minutes spent on discharge:: 45 Patient Condition:: Stable Medical Necessity - Tobacco Use Smoking Status: Never smoker Meaningful Use Info Meaningful Use Diagnoses (Choose all that apply): None applicable Inpatient E&M: 24218 [facility]
--- NOTE | 2019-08-04 13:49 | CASEMGMT ---
MELISA CM DC PHONE CALL DC DATE: 08.01.2019 DC DISPOSITION: Home DC DIAGNOSIS: SARS COVID 2 Attempted call, no answer and no message machine with name identifier. Luis Antonio YARBROUGHN RN ACM
== END 2019-08-01 17:10 | disposition home or self-care (01) | DRG 870 ==
LOC: ED 16:37 → ICU 17:53 → MS2 07-30 11:10
PROVIDERS: Family Medicine; Hospitalist; Internal Medicine Critical Care Medicine; Internal Medicine Infectious Disease; Admitting Provider Internal Medicine; Emergency Provider Emergency Medicine; PCP Family Medicine; Visit Provider Student in an Organized Health Care Education/Training Program
DX: A41.89 Other specified sepsis (principal); U07.1 COVID-19; J80 Acute respiratory distress syndrome; J12.89 Other viral pneumonia; A41.9 Sepsis, unspecified organism; R65.20 Severe sepsis without septic shock; E66.9 Obesity, unspecified; Z68.31 Body mass index [BMI] 31.0-31.9, adult; G89.4 Chronic pain syndrome; R74.0 Nonspecific elevation of levels of transaminase and lactic acid dehydrogenase [LDH]
CPT/HCPCS: 31500; 31720; 36415; 36600; 51702; 71045; 76705; 80048; 80053; 80076; 81001; 82550; 82803; 83605; 83690; 83735; 83880; 84100; 84478; 85025; 85610; 85730; 87040; 87070; 87086; 87205; 87633; 87635; 92526; 92610; 93005; 94002; 94003; 94640; 94660; 97110; 97116; 97162; 97167; 97530; 97802; 99251; 99285; J7030; J7050; A4216; G0463; J0696; J1940; U0004

== ENCOUNTER → 2019-08-15 10:07 | Outpatient (CLI) | payer OTHER, SELFPAY ==
[2019-08-14 10:58] VITALS: BMI 31.1
[2019-08-15 12:27] LABS: Absolute Lymphocyte Count 2.03 X10^3/uL (0.83-4.51); Absolute Neutrophil Count 2.7 X10^3/uL (2.0-7.7); Basophil# 0.06 X10^3/uL; Eosinophil# 0.54 X10^3/uL; Eosinophils% 9.1 % (0-5); Hematocrit 37.8 % (40-54); Hemoglobin 12.8 g/dL (13.0-16.5); Lymphocyte # 2.03 X10^3/ul (4.0); Lymphocyte % 34.3 % (19-41); Mean Corp Hgb Conc 33.9 g/dL (32-36); Mean Corpuscular Volume 85.5 fL (80-94); Mean Platelet Vol. 11.8 fl (6.2-12.0); Monocyte# 0.59 X10^3/uL; NRBC Flagged by Analyzer 0 % (0-5); Neutrophil # 2.66 X10^3/uL (2.7-7.7); Neutrophil % 44.9 % (47-70); Platelet Count 242 K/mm3 (150-450); RBC Distribution Width CV 13.8 % (11.6-14.6); RBC Distribution Width SD 42.1 fl (35.1-43.9); Red Blood Count 4.42 M/mm3 (4.6-6.2); White Blood Count 5.9 K/mm3 (4.4-11.0)
[2019-08-15 12:49] LABS: AST(SGOT) 26 U/L (15-37); Alanine Aminotransfer ALT/SGPT 59 U/L (16-61); Albumin, Serum 3.3 g/dL (3.2-5.0); Alkaline Phosphatase 87 U/L (45-117); Globulin 3.6 g/dL (2.2-4.2); Protein, Total 6.9 g/dL (6.4-8.2)
== END ==
PROVIDERS: PCP Family Medicine; Visit Provider Family Medicine
DX: R74.8 Abnormal levels of other serum enzymes (principal)
CPT/HCPCS: 36415; 80076; 85025

== ENCOUNTER → 2019-09-12 07:17 | Outpatient (CLI) | payer OTHER, SELFPAY ==
[2019-08-14 10:58] VITALS: BMI 31.1
--- NOTE | 2019-09-12 13:52 | PFTCOMP ---
COMPLETE PULMONARY FUNCTION TEST INTERPRETATION Brief HPI: Patient is a 64 year old male, currently under the care of myself, who presents to [facility] for complete pulmonary function tests secondary to diagnosis of previous COVID. Respiratory therapist reports good effort and reproducible results. Interpretation: Forced expiration spirometry shows no large airways obstructive ventilatory defect with an FEV1 of 87% predicted. There is no significant bronchodilator response by strict ATS criteria. Spirograms are of good quality and plateau normally. The respiratory flow volume loop shows a normal pattern. Lung volumes by body plethysmography show a decreased total lung capacity at 4.99 L, 75% predicted. All other lung volumes are reduced symmetrically. Diffusion capacity by carbon monoxide is normal at 84% predicted. The airway resistance is normal. No previous pulmonary function tests were available for review. Impression: Mild restrictive ventilatory defect with relatively preserved diffusion capacity.
== END ==
PROVIDERS: PCP Family Medicine; Referring Provider Nurse Practitioner Acute Care; Visit Provider Nurse Practitioner Acute Care
DX: J18.9 Pneumonia, unspecified organism (principal)
CPT/HCPCS: 94060; 94726; 94729

== ENCOUNTER → 2019-09-13 09:05 | Outpatient (CLI) | payer OTHER, SELFPAY ==
[2019-08-14 10:58] VITALS: BMI 31.1
--- NOTE | 2019-09-13 09:36 | RAD_ITS ---
STUDY: X-RAY CHEST REASON FOR EXAM: Male, 64 years old. COVI19 FOLLOW UP. PATIENT STATES WAS IN THE HOSPITAL FOR 14 DAYS FOR COVID. FEELING MUCH BETTER. TECHNIQUE: PA and lateral views of the chest. COMPARISON: AP upright chest x-ray July 26, 2019. FINDINGS: The endotracheal and nasogastric tube seen on prior study have been removed. The lungs are incompletely expanded, but the bilateral infiltrates are significantly improved. Minor residual stranding densities and/or volume loss seen in the bilateral mid lungs. There is no demonstrated pleural abnormality. Normal size heart. Normal mediastinum and jose. Normal visualized pulmonary arteries. There is stable mild atherosclerotic calcification of the aortic arch with tortuosity of the descending thoracic segment that parallels the mild spinal curvature. There are stable degenerative changes and minor levoscoliosis of the lower thoracic spine. Normal visualized ribs, clavicles, and shoulders. There is no demonstrated abnormality of the visualized soft tissue structures of the upper abdomen. RAD/Chest PA and Lateral IMPRESSION: 1. Notable clearing of bilateral infiltrates with residual minor stranding and/or volume loss in the bilateral mid lungs. 2. Endotracheal and nasogastric tubes have been removed. Electronically Signed: Sergio Moreau MD at 17:14 EDT , Service support ,
[2019-09-13 10:42] VITALS: PULSE 73; PULSE 74; PULSE 84; PULSE 87; PULSE 88; PULSE 89; PULSE 90; O2SAT 94; O2SAT 95; O2SAT 96; O2SAT 97; O2SAT 98
--- NOTE | 2019-09-13 14:24 | WT_ITS ---
PSN 6 Minute Walk Test - 6 Minute Walk Test 6 Minute Walk Test: 6 Minute Walk Test PSN:6-Minute Walk Test Start: 09/13/19 10:42 Freq: Status: Active Protocol: RESP.6MINW Document 09/13/19 10:42 [facility] (Rec: 09/13/19 10:45 [facility] [id number]) 6 Minute Walk Test Date Performed 09/13/19 Time Performed 09:00 Height 5 ft 10 in Weight: 93.894 kg Weight in Pounds 207.[address]: Codie Mobley Assistive device used: None Pre-test Oxygen Delivery Method Room Air Pulse Ox (%) 98 Pulse Rate (60-100 beats/min) 74 Dyspnea Brad Scale (0-10) 1 1st minute Oxygen Delivery Method Room Air Pulse Ox (%) 96 Pulse Rate (60-100 beats/min) 73 Dyspnea Brad Scale (0-10) 1 Number of Rests Taken 0 2nd minute Oxygen Delivery Method Room Air Pulse Ox (%) 96 Pulse Rate (60-100 beats/min) 84 Dyspnea Brad Scale (0-10) 1 Number of Rests Taken 0 3rd minute Oxygen Delivery Method Room Air Pulse Ox (%) 95 Pulse Rate (60-100 beats/min) 88 Dyspnea Brad Scale (0-10) 1 Number of Rests Taken 0 4th minute Oxygen Delivery Method Room Air Pulse Ox (%) 96 Pulse Rate (60-100 beats/min) 90 Dyspnea Brad Scale (0-10) 1 Number of Rests Taken 0 5th minute Oxygen Delivery Method Room Air Pulse Ox (%) 94 Pulse Rate (60-100 beats/min) 89 Dyspnea Brad Scale (0-10) 1 Number of Rests Taken 0 6th minute Oxygen Delivery Method Room Air Pulse Ox (%) 95 Pulse Rate (60-100 beats/min) 87 Dyspnea Brad Scale (0-10) 1 Number of Rests Taken 0 Post-test Oxygen Delivery Method Room Air Pulse Ox (%) 97 Pulse Rate (60-100 beats/min) 74 Dyspnea Brad Scale (0-10) 1 Full Laps Walked 24 Partial Lap, Number of Tiles Walked 32 Total Distance Walked (ft) 1448 - Interpretation Interpretation: The patient was able to ambulate 1448 feet over the course of 6 minutes on room air with no assistive devices or breaks. The patient experienced no significant desaturation or tachycardia. These findings are consistent with a normal walking oximetry. - Recommendations Recommendations: No supplemental oxygen is indicated at this time.
== END ==
PROVIDERS: PCP Family Medicine; Referring Provider Nurse Practitioner Acute Care; Visit Provider Nurse Practitioner Acute Care
DX: J18.9 Pneumonia, unspecified organism (principal)
CPT/HCPCS: 71046; 94618

== ENCOUNTER → 2020-03-18 08:09 | Outpatient (CLI) | payer OTHER, SELFPAY ==
[2019-09-19 05:33] VITALS: BMI 31.1
--- NOTE | 2020-03-18 14:59 | PFTCOMP ---
COMPLETE PULMONARY FUNCTION TEST INTERPRETATION Brief HPI: Patient is a 64 year old male, currently under the care of myself, who presents to [facility] for complete pulmonary function tests secondary to diagnosis of post COVID-19. Respiratory therapist reports good effort and reproducible results. Interpretation: Forced expiration spirometry shows no large airways obstructive ventilatory defect with an FEV1 of 117% predicted. There is no significant bronchodilator response by strict ATS criteria. Spirograms are of good quality and plateau normally. The respiratory flow volume loop shows a normal pattern. Lung volumes by body plethysmography show a normal total lung capacity at 7.17 L, 108% predicted. All other lung volumes are within normal limits. Diffusion capacity by carbon monoxide is normal at 123% predicted. The airway resistance is normal. Compared to previous pulmonary function tests from 09/12/2019, there has been normalization of all lung volumes, spirometry and DLCO with improvements in excess of 30%. Impression: Complete normalization of pulmonary function test compared to previous testing
== END ==
PROVIDERS: PCP Family Medicine; Referring Provider Internal Medicine Critical Care Medicine; Visit Provider Internal Medicine Critical Care Medicine
DX: J98.4 Other disorders of lung (principal); Z86.19 Personal history of other infectious and parasitic diseases
CPT/HCPCS: 94060; 94726; 94729

== ENCOUNTER → 2020-09-19 09:41 | Outpatient (CLI) | payer OTHER, SELFPAY ==
[2020-03-22 09:49] VITALS: BMI 31.2
[2020-09-19 12:52] LABS: Anion Gap 6 (5-15); BUN 18 mg/dL (7-18); BUN/Creat Ratio 18.2 RATIO (10-20); Calcium,Total 8.8 mg/dL (8.5-10.1); Chloride 105 mmol/L (98-107); Cholesterol 215 mg/dL (200); Creatinine, Serum 0.99 mg/dL (0.70-1.30); EST Glomerular Filtration Rate 81 mL/min (>60); Est Glom Filt Rate - Afr Amer 98 mL/min (>60); Glucose 102 mg/dL (74-106); High Density Lipoprotein 74 mg/dL; PSA,Total - Annual Screen 1.64 ng/mL (0.00-4.00); Potassium 4.2 mmol/L (3.5-5.1); Sodium Level 138 mmol/L (136-145); Triglycerides 120 mg/dL; Very Low Density Lipoprotein 24 mg/dL (5-40)
== END ==
PROVIDERS: PCP Family Medicine; Referring Provider Family Medicine; Visit Provider Nurse Practitioner Family
DX: Z13.1 Encounter for screening for diabetes mellitus (principal); Z13.220 Encounter for screening for lipoid disorders; Z12.5 Encounter for screening for malignant neoplasm of prostate
CPT/HCPCS: 36415; 80048; 80061; 84153; G0103

== ENCOUNTER 2021-07-10 15:59 | Outpatient (CLI) | payer OTHER, SELFPAY ==
[2021-07-10 17:49] LABS: Anion Gap 5 (5-15); BUN 22 mg/dL (7-18); BUN/Creat Ratio 21.6 RATIO (10-20); Chloride 107 mmol/L (98-107); Cholesterol 217 mg/dL (200); Creatinine, Serum 1.02 mg/dL (0.70-1.30); EST Glomerular Filtration Rate 78 mL/min (>60); Est Glom Filt Rate - Afr Amer 95 mL/min (>60); Glucose 89 mg/dL (74-106); High Density Lipoprotein 83 mg/dL; Sodium Level 139 mmol/L (136-145); Triglycerides 89 mg/dL; Very Low Density Lipoprotein 18 mg/dL (5-40)
== END 2021-07-10 23:59 | disposition home or self-care (01) ==
LOC: MFPLAB 15:59
PROVIDERS: PCP Family Medicine; Referring Provider Family Medicine; Visit Provider Nurse Practitioner Family
DX: Z13.1 Encounter for screening for diabetes mellitus (principal); Z13.220 Encounter for screening for lipoid disorders
CPT/HCPCS: 36415; 80048; 80061

== ENCOUNTER → 2021-11-04 | Outpatient (CLI) | payer OTHER, SELFPAY ==
[2021-11-04 15:23] LABS: Absolute Lymphocyte Count 1.76 X10^3/uL (0.83-4.51); Absolute Neutrophil Count 4.2 X10^3/uL (2.0-7.7); Basophil# 0.05 X10^3/uL; Basophil% 0.7 % (0-1); Eosinophil# 0.24 X10^3/uL; Eosinophils% 3.5 % (0-5); Hematocrit 46.1 % (40-54); Hemoglobin 16.8 g/dL (13.0-16.5); Lymphocyte # 1.76 X10^3/ul (0.83-4.51); Lymphocyte % 25.5 % (19-41); Mean Corp Hgb Conc 36.4 g/dL (32-36); Mean Corpuscular Hgb 31.5 pg (27.0-32.0); Mean Corpuscular Volume 86.5 fL (80-94); Mean Platelet Vol. 11.8 fl (6.2-12.0); Monocyte# 0.55 X10^3/uL; NRBC Flagged by Analyzer 0 % (0-5); Neutrophil # 4.24 X10^3/uL (2.7-7.7); Neutrophil % 61.6 % (47-70); Platelet Count 290 K/mm3 (150-450); RBC Distribution Width SD 40.1 fl (35.1-43.9); Red Blood Count 5.33 M/mm3 (4.6-6.2); White Blood Count 6.9 K/mm3 (4.4-11.0)
[2021-11-04 15:43] LABS: Erythrocyte Sedimentation Rate 4 mm/hr (0-20)
[2021-11-04 16:01] LABS: PSA,Total - Annual Screen 0.75 ng/mL (0.00-4.00); Rheumatoid Factor < 10.0 IU/mL (<15); Thyroid Stim Hormone (TSH) 1.28 uIU/mL (0.358-3.74); Uric Acid 5.7 mg/dL (3.5-7.2)
[2021-11-05 14:24] LABS: Ferritin 187 ng/mL (26-388); Iron 115 ug/dL (65-175)
[2021-11-07 07:57] LABS: ANTINUCLEAR ANTIBODIES DIRECT Negative (Negative)
== END | disposition home or self-care (01) ==
LOC: MFPLAB 12:22
PROVIDERS: PCP Family Medicine; Visit Provider Family Medicine
DX: N52.9 Male erectile dysfunction, unspecified (principal); Z12.5 Encounter for screening for malignant neoplasm of prostate; M19.90 Unspecified osteoarthritis, unspecified site
CPT/HCPCS: 36415; 82728; 83540; 84153; 84403; 84443; 84550; 85025; 85652; 86038; 86431; G0103

== ENCOUNTER → 2022-11-09 | Outpatient (CLI) | payer OTHER, SELFPAY ==
[2022-11-09 12:57] LABS: Absolute Lymphocyte Count 1.53 X10^3/uL (0.83-4.51); Absolute Neutrophil Count 3.5 X10^3/uL (2.0-7.7); Basophil# 0.08 X10^3/uL; Basophil% 1.3 % (0-1); Eosinophil# 0.34 X10^3/uL; Eosinophils% 5.6 % (0-5); Hemoglobin 14.8 g/dL (13.0-16.5); Lymphocyte # 1.53 X10^3/ul (0.83-4.51); Lymphocyte % 25.2 % (19-41); Mean Corp Hgb Conc 34.4 g/dL (32-36); Mean Platelet Vol. 11.5 fl (6.2-12.0); Monocyte% 9.9 % (0-10); NRBC Flagged by Analyzer 0 % (0-5); Neutrophil # 3.46 X10^3/uL (2.7-7.7); Platelet Count 242 K/mm3 (150-450); RBC Distribution Width CV 13.2 % (11.6-14.6); Red Blood Count 4.94 M/mm3 (4.6-6.2); White Blood Count 6.1 K/mm3 (4.4-11.0)
[2022-11-09 13:45] LABS: Anion Gap 5 (5-15); BUN 18 mg/dL (7-18); BUN/Creat Ratio 18.8 RATIO (10-20); Calcium,Total 8.7 mg/dL (8.5-10.1); Chloride 109 mmol/L (98-107); Cholesterol 229 mg/dL (200); Creatinine, Serum 0.96 mg/dL (0.70-1.30); EST Glomerular Filtration Rate 84 mL/min (>60); Est Glom Filt Rate - Afr Amer 102 mL/min (>60); Glucose 104 mg/dL (74-106); High Density Lipoprotein 91 mg/dL; Iron 103 ug/dL (65-175); PSA,Total - Annual Screen 0.69 ng/mL (0.00-4.00); Potassium 3.9 mmol/L (3.5-5.1); Sodium Level 140 mmol/L (136-145); Triglycerides 73 mg/dL; Very Low Density Lipoprotein 15 mg/dL (5-40)
[2022-11-14 11:08] LABS: Testosterone, % Free 2.53 % (1.50-4.20); Testosterone, Free 15.53 ng/dL (5.00-21.00); Testosterone, Total 614 ng/dL (264-916)
== END | disposition home or self-care (01) ==
LOC: MFPLAB 10:18
PROVIDERS: PCP Family Medicine; Visit Provider Family Medicine
DX: Z13.220 Encounter for screening for lipoid disorders (principal); N52.9 Male erectile dysfunction, unspecified; D75.1 Secondary polycythemia; Z12.5 Encounter for screening for malignant neoplasm of prostate
CPT/HCPCS: 36415; 80048; 80061; 83540; 84153; 84402; 84403; 85025; G0103

== ENCOUNTER → 2023-02-15 | Outpatient (CLI) | payer OTHER, SELFPAY ==
--- NOTE | 2023-02-15 08:21 | RAD_ITS ---
STUDY: X-RAY - ESOPHAGUS (BARIUM SWALLOW) WITH FLUOROSCOPY REASON FOR EXAM: Male, 67 years old. DYSPHAGIA TECHNIQUE: 17 view(s) of the esophagus were obtained following swallowing of barium. FLUOROSCOPY TIME (if supplied): (51 seconds) minutes/seconds. 29.31 mGy COMPARISON: None. FINDINGS: There is no demonstrated esophageal foreign body. There is no demonstrated stricture or mucosal abnormality. Normal gastroesophageal junction, without a demonstrated hiatal hernia. The patient ingested a 12 mm tablet of barium. The tablet is trapped at the gastroesophageal junction. Normal visualized aortic arch and descending thoracic aorta. Normal visualized pulmonary parenchyma. Normal visualized osseous structures of the thorax. RAD/Esophagus Single Contrast IMPRESSION: T12 millimeter tablet of barium is trapped at the gastroesophageal junction. Electronically Signed: Lambert Cason MD at 13:55 EDT ,
== END | disposition home or self-care (01) ==
PROVIDERS: PCP Family Medicine; Visit Provider Internal Medicine Gastroenterology
DX: R13.10 Dysphagia, unspecified (principal)
CPT/HCPCS: 74220